=== PATIENT | female | born 1940 | race Caucasian/White ===

== ENCOUNTER → 2016-10-21 | Outpatient (CLI) | payer MEDICARE, BC ==
--- NOTE | 2016-10-21 11:49 | FL ---
MODIFIED SWALLOW / DEGLUTITION STUDY DATE OF EXAM: 10/21/2016 CLINICAL HISTORY: 76-year-old female with dysphasia, sensation of food sticking in throat. TECHNIQUE: Deglutition study is performed utilizing thin liquid barium, honey and nectar thick liqui d barium, barium thick applesauce, and barium coated cracker. COMPARISON: None. FINDINGS: The oral and pharyngeal phases show satisfactory initiation and propagation with all modalities teste d. The patient is edentulous. Normal mastication is seen with solid modalities tested. There is no evidence of penetration or aspiration with any modality tested. No significant pharyngeal residual w as appreciated. Note, there are residuals noted in the lower cervical esophagus with some mild intraesophageal reflux . 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 IMPRESSION: 1. Normal deglutition study. Please refer to speech therapist notes for further details if necessary . 2. There are some residuals noted in the lower cervical esophagus with some intermittent intraesophag eal reflux. 3. 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 Consider direct visualiza tion if the patient remains symptomatic.
== END | disposition home or self-care (01) ==
LOC: RADFLMAIN 10:53
PROVIDERS: ATTEND Family Medicine
DX: K21.9 Gastro-esophageal reflux disease without esophagitis (principal); R13.10 Dysphagia, unspecified
CPT/HCPCS: 74230

== ENCOUNTER 2017-05-06 10:37 | Day surgery (SDC) | payer MEDICARE, BC ==
[2017-05-05 08:32] VITALS: BMI 22.1
[~2017-05-06 10:37] MED LIST: LACTATED RINGERS 1,000 ML IV SCH
[2017-05-06 11:25] VITALS: RESP 16; TEMP 97.8
[2017-05-06] MEDS ORDERED: LIDOCAINE 1% 20 ML VIAL (10MG/ML) FOR IV START INTRADERMA ONE (11:34)
[2017-05-06] MEDS ORDERED: PROPOFOL 10 MG/ML 20 ML VIAL IV ONE (12:10)
[2017-05-06] MEDS ORDERED: LIDOCAINE 1% INJ 10MG/ML (20 ML MDV) ONE (12:10)
--- NOTE | 2017-05-06 12:38 | P.PCN ---
Date of Procedure: 05/06/17 Procedure(s) Performed: Brief history: Patient is a pleasant 76-year-old white female, scheduled for an elective upper endoscopy as well as colonoscopy as a part of evaluation of evaluation of Hemoccult-positive stool and anemia. She denies any abdominal pain. Procedure performed: Esophagogastroduodenoscopy with biopsy Colonoscopy and snare polypectomy Preoperative diagnosis: Anemia and Hemoccult-positive stool Anesthesia: [facility] Procedure: After informed consent was obtained from the patient was brought into the endoscopy unit and IV sedation was administered by anesthesia under continuous monitoring. Initially upper endoscopy was done. The Olympus GF 160 video endoscope was inserted inserted into the mouth and esophagus intubated without any difficulty and was gradually advanced into the stomach and duodenum and carefully examined. The bulb and second part of the duodenum appeared normal. The scope was then withdrawn into the stomach adequately insufflated with air and upon careful examination the antrum had mild gastritis and biopsies were done from this area. The body, cardia and fundus appeared normal. There was evidence of previous vertical band gastroplasty noted.The scope was then withdrawn into the esophagus. The GE junction was located at 40 cm to the incisors. It appeared regular with no erythema erosions or ulcerations. Rest of the esophagus appeared normal. Patient tolerated the procedure well. At this time the patient continued to remain sedation. Initial digital rectal examination was normal. Olympus CF 160 video colonoscope was then inserted into the rectum and gradually advanced to the cecum without any difficulty. Careful examination was performed as the scope was gradually being withdrawn. The prep was excellent. The cecum, ascending colon, transverse colon, descending colon, sigmoid colon and rectum appeared normal. in the proximal rectum there was a 7-8 mm polyp removed by snare polypectomy. Retroflexion was performed in the rectum and no lesions were noted. Patient tolerated the procedure well. Impression: 1. Upper endoscopy revealed mild antral gastritis and evidence of previous vertical band gastroplasty. 2. Colonoscopy revealed 7-8 mm proximal rectal polyp status post polypectomy. Rest of the colon appeared normal. Recommendations: Findings of this examination were discussed with the patient as well as her family. She was advised to follow with the biopsy results. She can resume Xarelto today.today.
[2017-05-06] MEDS ORDERED: METOPROLOL TARTRATE 5 MG/5 ML VIAL IVP ONE ×3 (13:42→14:05)
[2017-05-06 14:27] VITALS: PULSE 55
[2017-05-06] MEDS ORDERED: hydrALAZINE HCL 20 MG/ML 1 ML VIAL IVP ONE (14:30)
[2017-05-06 14:47] VITALS: BP 157/71
== END 2017-05-06 15:20 | disposition home or self-care (01) ==
LOC: ORWHC2ENDO 10:37
PROVIDERS: ATTEND Internal Medicine Gastroenterology
DX: D12.8 Benign neoplasm of rectum (principal); K29.70 Gastritis, unspecified, without bleeding; Z98.84 Bariatric surgery status; I10 Essential (primary) hypertension; E78.5 Hyperlipidemia, unspecified; Z95.2 Presence of prosthetic heart valve; Z79.01 Long term (current) use of anticoagulants; M79.7 Fibromyalgia; I69.398 Other sequelae of cerebral infarction; J39.2 Other diseases of pharynx; Z79.899 Other long term (current) drug therapy
CPT/HCPCS: 88305; 45385; 43239; J0360; J2001; J2704

== ENCOUNTER 2020-04-25 15:29 | Inpatient (IN) | payer MEDICARE, BC ==
[2020-04-25 16:47] LABS: Albumin 3.8 g/dL (3.5-5.0); Calcium 8.6 mg/dL (8.4-10.2); Potassium 3.6 mmol/L (3.5-5.1); Total Bilirubin 1.5 mg/dL (0.2-1.3); Total Protein 6.5 g/dL (6.3-8.2)
[2020-04-25 16:54] LABS: Anisocytosis Slight; Basophils % (A) 1 %; Eosinophils # (A) 0.1 k/uL (0-0.7); Eosinophils % (A) 1 %; HCT 31.4 % (34.0-46.0); HGB 9.9 gm/dL (11.4-16.0); Hypochromasia Slight; Lymphocytes # (A) 0.9 k/uL (1.0-4.8); Lymphocytes % (A) 15 %; MCH 26.7 pg (25.0-35.0); MCHC 31.6 g/dL (31.0-37.0); MCV 84.6 fL (80.0-100.0); Mean Platelet Volume 9.7; Monocytes # (A) 0.6 k/uL (0-1.0); Monocytes % (A) 9 %; Neutrophils # (A) 4.6 k/uL (1.3-7.7); Neutrophils % (A) 73 %; Platelet Count 166 k/uL (150-450); RBC 3.71 m/uL (3.80-5.40); RDW 19.2 % (11.5-15.5); WBC 6.3 k/uL (3.8-10.6)
[2020-04-25 17:19] LABS: INR 2.8 (<1.2); Partial Thromboplastin Time 41.9 sec (22.0-30.0); Prothrombin Time 27.5 sec (9.0-12.0)
--- NOTE | 2020-04-25 17:35 | ED ---
GI Bleed HPI - General Chief complaint: GI Bleed Stated complaint: Rectal Bleed Time Seen by Provider: 04/25/20 15:42 Source: patient, family Mode of arrival: ambulatory Limitations: no limitations - History of Present Illness Initial comments: Cynthia is a pleasantly demented 79-year-old female with a history of A. fib on Xarelto. Patient is brought to the ER today by her daughter for evaluation of bright red blood per rectum. per the daughter the patient had been staying with friends since Thursday, when the daughter picked her up last night she was made aware that her mother been having bright red blood per rectum since Thursday. The patient reports she feels somewhat lightheaded denies chest pain or shortness of breath. Patient does have a history of a bleeding and anemia in the past. She is still currently taking her blood thinner. Patient denies any abdominal pain nausea or vomiting. Daughter reports that this morning the patient urinated and she noted that there was blood dripping from her rectum into the toilet, after having a bowel movement there was additional blood and a small clot. - Related Data Home Medications Medication Instructions Recorded Confirmed Atorvastatin [Lipitor] 20 mg PO HS 05/05/17 05/05/17 Ferrous Sulfate [Iron] 325 mg PO DAILY 05/05/17 05/05/17 Loratadine [Claritin] 10 mg PO DAILY PRN 05/05/17 05/06/17 Memantine [Namenda] 10 mg PO BID 05/05/17 05/05/17 Metoprolol Tartrate 25 mg PO BID 05/05/17 05/05/17 Multivitamins, Thera [Multivitamin 1 tab PO DAILY 05/05/17 05/05/17 (formulary)] Rivaroxaban [Xarelto] 20 mg PO DAILY 05/05/17 05/05/17 Sertraline HCl [Zoloft] 100 mg PO DAILY 05/05/17 05/05/17 Allergies Allergy/AdvReac Type Severity Reaction Status Date / Time No Known Allergies Allergy Verified 05/06/17 11:11 Review of Systems ROS Statement: Those systems with pertinent positive or pertinent negative responses have been documented in the HPI. ROS Other: All systems not noted in ROS Statement are negative. 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 (hx blood clot behind rt eye from TIA), anemia, urinary leakage, gets dizzy when standing up History of Any Multi-Drug Resistant Organisms: None Reported Past Surgical History: Bariatric Surgery, Cardiac Valve Replacement, Cholecystectomy, Heart Catheterization, Hysterectomy, Orthopedic Surgery Additional Past Surgical History / Comment(s): 2 heart valve replaced, torn retina left eye, left knee surgery Past Anesthesia/Blood Transfusion Reactions: No Reported Reaction Past Psychological History: No Psychological Hx Reported Past Alcohol Use History: Occasional Past Drug Use History: None Reported - Past Family History Mother Family Medical History: Cancer General Exam - General Exam Comments Initial Comments: Physical Exam GENERAL: Elderly female, frail appearance HENT: Normocephalic, Atraumatic. EYES: PERRL, EOMI Conjunctival pallor PULMONARY: Unlabored respirations. No audible rales rhonchi or wheezing was noted. CARDIOVASCULAR: Murmur ABDOMEN: Soft and nontender with normal bowel sounds. SKIN: Pale : External and internal hemorrhoids, no active bleeding NEUROLOGIC: Alert and oriented to self MUSCULOSKELETAL: Normal extremities with adequate strength and full range of motion. No lower extremity swelling or edema. No calf tenderness. PSYCHIATRIC: Pleasant Limitations: no limitations Course Vital Signs 04/25/20 04/25/20 04/25/20 15:31 16:04 16:52 Temperature 98.6 F Pulse Rate 69 63 65 Respiratory 16 18 16 Rate Blood Pressure 120/46 106/52 97/46 O2 Sat by Pulse 98 94 L 93 L Oximetry Medical Decision Making - Medical Decision Making she was seen and evaluated history was obtained from the daughter review of medical record 79-year-old female on several to with what appears to be lower GI bleeding, no active bleeding on exam Labs were obtained and revealed anemiathe hemoglobin of 9.9, most recent hemoglobin was September 2019 was 13 this is significant drop uncertain if this is acute or chronic, and addition patient has elevated troponin related to anemia results were discussed with the patient and her daughter at bedside, daughter confirms patient is full code and would want to be admitted Patient care was discussed the patient's primary care physicianDr. Henderson who accepts admission with consult to GI - Lab Data Result diagrams: 04/25/20 16:00 04/25/20 16:07 Lab Results 0204/25/20 04/25/20 Range/Units 16:00 16:07 16:07 WBC 6.3 (3.8-10.6) k/uL RBC 3.71 L (3.80-5.40) m/uL Hgb 9.9 L (11.4-16.0) gm/dL Hct 31.4 L (34.0-46.0) % MCV 84.6 (80.0-100.0) fL MCH 26.7 (25.0-35.0) pg MCHC 31.6 (31.0-37.0) g/dL RDW 19.2 H (11.5-15.5) % Plt Count 166 (150-450) k/uL MPV 9.7 Neutrophils % 73 % Lymphocytes % 15 % Monocytes % 9 % Eosinophils % 1 % Basophils % 1 % Neutrophils # 4.6 (1.3-7.7) k/uL Lymphocytes # 0.9 L (1.0-4.8) k/uL Monocytes # 0.6 (0-1.0) k/uL Eosinophils # 0.1 (0-0.7) k/uL Basophils # 0.0 (0-0.2) k/uL Manual Slide Review Performed Polychromasia Present Hypochromasia Slight Anisocytosis Slight PT 27.5 H (9.0-12.0) sec INR 2.8 H (<1.2) APTT 41.9 H (22.0-30.0) sec Sodium 135 L (137-145) mmol/L Potassium 3.6 (3.5-5.1) mmol/L Chloride 93 L (98-107) mmol/L Carbon Dioxide 32 H (22-30) mmol/L Anion Gap 10 mmol/L BUN 22 H (7-17) mg/dL Creatinine 0.77 (0.52-1.04) mg/dL Est GFR (CKD-EPI)AfAm 84 (>60 ml/min/1.73 sqM) Est GFR (CKD-EPI)NonAf 73 (>60 ml/min/1.73 sqM) Glucose 163 H (74-99) mg/dL Plasma Lactic Acid Jose Ramon (0.7-2.0) mmol/L Calcium 8.6 (8.4-10.2) mg/dL Total Bilirubin 1.5 H (0.2-1.3) mg/dL AST 32 (14-36) U/L ALT 23 (4-34) U/L Alkaline Phosphatase 40 (38-126) U/L Troponin I (0.000-0.034) ng/mL Total Protein 6.5 (6.3-8.2) g/dL Albumin 3.8 (3.5-5.0) g/dL Stool Occult Blood (Negative) Blood Type Blood Type Confirm Blood Type Recheck Bld Type Recheck Status Antibody Screen Spec Expiration Date 04/25/20 04/25/20 04/25/20 Range/Units 16:07 16:12 16:40 WBC (3.8-10.6) k/uL RBC (3.80-5.40) m/uL Hgb (11.4-16.0) gm/dL Hct (34.0-46.0) % MCV (80.0-100.0) fL MCH (25.0-35.0) pg MCHC (31.0-37.0) g/dL RDW (11.5-15.5) % Plt Count (150-450) k/uL MPV Neutrophils % % Lymphocytes % % Monocytes % % Eosinophils % % Basophils % % Neutrophils # (1.3-7.7) k/uL Lymphocytes # (1.0-4.8) k/uL Monocytes # (0-1.0) k/uL Eosinophils # (0-0.7) k/uL Basophils # (0-0.2) k/uL Manual Slide Review Polychromasia Hypochromasia Anisocytosis PT (9.0-12.0) sec INR (<1.2) APTT (22.0-30.0) sec Sodium (137-145) mmol/L Potassium (3.5-5.1) mmol/L Chloride (98-107) mmol/L Carbon Dioxide (22-30) mmol/L Anion Gap mmol/L BUN (7-17) mg/dL Creatinine (0.52-1.04) mg/dL Est GFR (CKD-EPI)AfAm (>60 ml/min/1.73 sqM) Est GFR (CKD-EPI)NonAf (>60 ml/min/1.73 sqM) Glucose (74-99) mg/dL Plasma Lactic Acid Jose Ramon (0.7-2.0) mmol/L Calcium (8.4-10.2) mg/dL Total Bilirubin (0.2-1.3) mg/dL AST (14-36) U/L ALT (4-34) U/L Alkaline Phosphatase (38-126) U/L Troponin I 0.186 H* (0.000-0.034) ng/mL Total Protein (6.3-8.2) g/dL Albumin (3.5-5.0) g/dL Stool Occult Blood Positive H (Negative) Blood Type Blood Type Confirm B Negative Blood Type Recheck Bld Type Recheck Status Antibody Screen Spec Expiration Date 04/25/20 04/25/20 Range/Units 16:48 16:48 WBC (3.8-10.6) k/uL RBC (3.80-5.40) m/uL Hgb (11.4-16.0) gm/dL Hct (34.0-46.0) % MCV (80.0-100.0) fL MCH (25.0-35.0) pg MCHC (31.0-37.0) g/dL RDW (11.5-15.5) % Plt Count (150-450) k/uL MPV Neutrophils % % Lymphocytes % % Monocytes % % Eosinophils % % Basophils % % Neutrophils # (1.3-7.7) k/uL Lymphocytes # (1.0-4.8) k/uL Monocytes # (0-1.0) k/uL Eosinophils # (0-0.7) k/uL Basophils # (0-0.2) k/uL Manual Slide Review Polychromasia Hypochromasia Anisocytosis PT (9.0-12.0) sec INR (<1.2) APTT (22.0-30.0) sec Sodium (137-145) mmol/L Potassium (3.5-5.1) mmol/L Chloride (98-107) mmol/L Carbon Dioxide (22-30) mmol/L Anion Gap mmol/L BUN (7-17) mg/dL Creatinine (0.52-1.04) mg/dL Est GFR (CKD-EPI)AfAm (>60 ml/min/1.73 sqM) Est GFR (CKD-EPI)NonAf (>60 ml/min/1.73 sqM) Glucose (74-99) mg/dL Plasma Lactic Acid Jose Ramon 1.1 (0.7-2.0) mmol/L Calcium (8.4-10.2) mg/dL Total Bilirubin (0.2-1.3) mg/dL AST (14-36) U/L ALT (4-34) U/L Alkaline Phosphatase (38-126) U/L Troponin I (0.000-0.034) ng/mL Total Protein (6.3-8.2) g/dL Albumin (3.5-5.0) g/dL Stool Occult Blood (Negative) Blood Type B Negative Blood Type Confirm Blood Type Recheck No Previous Record Bld Type Recheck Status CABO Indicated Antibody Screen NEGATIVE Spec Expiration Date 04/28/20202299 Disposition Clinical Impression: GI bleeding, Anemia, Elevated troponin I level, Alzheimer disease Disposition: ADMITTED IP TO THIS [facility] Condition: Serious Is patient prescribed a controlled substance at d/c from ED?: No
[2020-04-25 17:37] LABS: Polychromasia Present
[2020-04-25] MEDS ORDERED: NALOXONE 0.4 MG/ML 1 ML VIAL IV PRN (17:59)
[2020-04-25] MEDS ORDERED: NITROGLYCERIN SL TABS 0.4 MG TAB SUBLINGUAL PRN (21:35)
[2020-04-25] MEDS: METOPROLOL TARTRATE 25 MG TAB PO SCH (21:53)
[2020-04-25] MEDS: ATORVASTATIN 40 MG TAB PO SCH (21:54)
[2020-04-25] MEDS: MEMANTINE 10 MG TAB PO SCH (21:54)
[2020-04-25] MEDS: SODIUM CHLORIDE 0.9% 1,000 ML IV SCH (21:54)
[2020-04-25 22:00] LABS: Anisocytosis Slight; HCT 28.3 % (34.0-46.0); HGB 8.9 gm/dL (11.4-16.0); Hypochromasia Slight; MCH 26.8 pg (25.0-35.0); MCHC 31.5 g/dL (31.0-37.0); MCV 85.2 fL (80.0-100.0); Mean Platelet Volume 9.6; Platelet Count 140 k/uL (150-450); RBC 3.32 m/uL (3.80-5.40); RDW 19.4 % (11.5-15.5); WBC 6.3 k/uL (3.8-10.6)
[2020-04-26 07:59] LABS: Anisocytosis Slight; HCT 26.9 % (34.0-46.0); HGB 8.3 gm/dL (11.4-16.0); Hypochromasia Moderate; MCH 26.5 pg (25.0-35.0); MCV 85.5 fL (80.0-100.0); Mean Platelet Volume 8.9; Platelet Count 138 k/uL (150-450); RBC 3.15 m/uL (3.80-5.40); RDW 19.4 % (11.5-15.5); WBC 5.2 k/uL (3.8-10.6)
[2020-04-26] MEDS: DULoxetine HCL 20 MG CAPSULE.DR PO SCH (09:35)
[2020-04-26] MEDS: PANTOPRAZOLE 40 MG/10 ML VIAL IVP SCH ×2 (09:35→20:45)
[2020-04-26] MEDS: DOCUSATE 100 MG CAP PO SCH (09:35)
[2020-04-26] MEDS: MEMANTINE 10 MG TAB PO SCH ×2 (09:35→20:45)
[2020-04-26] MEDS: MECLIZINE 12.5 MG TAB PO SCH ×2 (09:36→20:45)
[2020-04-26] MEDS: CYANOCOBALAMIN 500 MCG TAB PO SCH (09:36)
[2020-04-26] MEDS: MULTIVITAMINS, THERA 1 EACH TAB PO SCH (09:36)
[2020-04-26] MEDS: CHOLECALCIFEROL 25 MCG (1000 IU) TABLET PO SCH (09:36)
[2020-04-26] MEDS: FERROUS SULFATE 325 MG TAB PO SCH (09:36)
[2020-04-26] MEDS: METOPROLOL TARTRATE 25 MG TAB PO SCH ×2 (09:36→20:45)
[2020-04-26] MEDS: CALCIUM CARBONATE 500 MG CHEWABLE PO SCH (09:36)
[2020-04-26] MEDS ORDERED: IOPAMIDOL CONTRAST (ORAL USE) VIAL PO PRN (10:23)
[2020-04-26] MEDS: HYDROCORTISONE SUPPOSITORY 25 MG SUPP RECTAL SCH (11:54)
[2020-04-26] MEDS: SODIUM CHLORIDE 0.9% 1,000 ML IV SCH (11:54)
--- NOTE | 2020-04-26 13:01 | P.HPIM ---
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, patient developed to have a significant rectal bleed over the last few days she had contacted my office yesterday because of increased rectal bleeding and she was directed to go to the ER she was evaluated in the emergency department at [facility] she was found to have a hemoglobin of 9.9 which is about 4 g lower from the last hemoglobin, and because of that she was admitted to the hospital for evaluation by gastroenterology, patient underwent upper endoscopy as well as colonoscopy back in April 2017 about 3 years ago and that showed the mild antral gastritis with a prior history of the vertical band gastroplasty and the colonoscopy showed a colon polyp that was snared and the patient at that time did not have any other issues, patient was admitted as a secondary or GI consultation was obtained from Dr. Metz. Review of Systems Constitutional: Reports fatigue, Reports weakness, Reports weight loss, Denies anorexia Eyes: denies blurred vision, denies bulging eye, denies decreased vision Ears: bilateral: decreased hearing Ears, nose, mouth and throat: Reports vertigo, Denies dysphagia, Denies neck lump, Denies sore throat Cardiovascular: Reports decreased exercise tolerance, Reports dyspnea on exertion, Reports lightheadedness, Denies chest pain, Denies rapid heart beat, Denies shortness of breath, Denies syncope Respiratory: Denies congestion, Denies cough, Denies cough with sputum, Denies pain, Denies sleep apnea, Denies snoring, Denies wheezing Gastrointestinal: Reports BRBPR, Reports early satiety, Reports hematochezia, Reports loss of appetite, Reports nausea, Denies abdominal pain, Denies belching, Denies bloating, Denies change in bowel habits, Denies constipation, Denies diarrhea, Denies excessive gas, Denies hematemesis, Denies jaundice, Denies lactose intolerance, Denies melena, Denies vomiting Genitourinary: Reports nocturia, Denies dysuria Menstruation: Reports postmenopausal Musculoskeletal: Reports gait dysfunction, Denies myalgias Musculoskeletal: absent: ankle pain, ankle stiffness, ankle swelling, elbow pain, elbow stiffness, elbow swelling, foot pain, foot stiffness, foot swelling, hand pain, hand stiffness, hand swelling, hip pain, hip stiffness, hip swelling, knee pain, knee stiffness, knee swelling, shoulder pain, shoulder stiffness, shoulder swelling, wrist pain, wrist stiffness, wrist swelling Integumentary: Denies pruritus, Denies rash Neurological: Reports gait dysfunction, Reports memory loss, Reports weakness, Reports visual changes Psychiatric: Reports anxiety, Reports depression, Reports sadness/tearfulness, Denies paranoia, Denies sleep disturbances, Denies suicidal ideation Endocrine: Denies fatigue, Denies weight change Past Medical History Past Medical History: Atrial Fibrillation, Chest Pain / Angina, Heart Failure, CVA/TIA, Dementia, Fibromyalgia, GERD/Reflux, Hearing Disorder / Deafness, Hyp erlipidemia, Hypertension, Osteoarthritis (OA) Additional Past Medical History / Comment(s): CVA x3, 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 (hx blood clot behind rt eye from TIA), anemia, urinary leakage, gets dizzy when standing up History of Any Multi-Drug Resistant Organisms: None Reported Past Surgical History: Bariatric Surgery, Cardiac Valve Replacement (Aortic valve placement and mitral valve repair.), Cholecystectomy, Heart Catheterization, Hysterectomy, Orthopedic Surgery Additional Past Surgical History / Comment(s): 2 heart valve replaced, torn retina left eye, left knee surgery Past Anesthesia/Blood Transfusion Reactions: No Reported Reaction Past Psychological History: No Psychological Hx Reported Smoking Status: Never smoker Past Alcohol Use History: Occasional Past Drug Use History: None Reported - Past Family History Mother Family Medical History: Cancer Medications and Allergies Home Medications Medication Instructions Recorded Confirmed Type Ferrous Sulfate [Iron] 325 mg PO DAILY 05/05/17 04/25/20 History Memantine [Namenda] 10 mg PO BID 05/05/17 04/25/20 History Metoprolol Tartrate 25 mg PO BID 05/05/17 04/25/20 History Multivitamins, Thera [Multivitamin 1 tab PO DAILY 05/05/17 04/25/20 History (formulary)] Rivaroxaban [Xarelto] 20 mg PO DAILY 05/05/17 04/25/20 History Acetaminophen [Tylenol] 500 mg PO BID PRN 04/25/20 04/25/20 History Atorvastatin [Lipitor] 40 mg PO HS 04/25/20 04/25/20 History Bumetanide 2 mg PO BID 04/25/20 04/25/20 History Calcium Carbonate [Calcium] 1,200 mg PO DAILY 04/25/20 04/25/20 History Cholecalciferol [Vitamin D3 (25 50 mcg PO DAILY 04/25/20 04/25/20 History Mcg = 1000 Iu)] Cyanocobalamin (Vitamin B-12) 1,000 mcg PO DAILY 04/25/20 04/25/20 History [Vitamin B-12] DULoxetine HCL [Cymbalta] 20 mg PO DAILY 04/25/20 04/25/20 History Docusate [Colace] 200 mg PO DAILY 04/25/20 04/25/20 History Meclizine [Antivert] 12.5 mg PO BID 04/25/20 04/25/20 History Nitroglycerin Sl Tabs [Nitrostat] 0.4 mg SUBLINGUAL Q5M PRN 04/25/20 04/25/20 History Potassium Chloride ER [K-Dur 20] 20 meq PO DAILY 04/25/20 04/25/20 History Allergies Allergy/AdvReac Type Severity Reaction Status Date / Time No Known Allergies Allergy Verified 04/25/20 18:45 Physical Exam Vitals: Vital Signs Temp Pulse Pulse Resp BP BP Pulse Ox 04/26/20 04:00 98.2 F 57 L 16 106/46 87 L 04/26/20 02:00 57 L 18 04/26/20 00:00 98.4 F 63 18 100/40 87 L 04/25/20 20:00 98.7 F 66 17 94/53 92 L 04/25/20 18:18 63 18 110/49 92 L 04/25/20 16:52 65 16 97/46 93 L 04/25/20 16:04 63 18 106/52 94 L 04/25/20 15:31 98.6 F 69 16 120/46 98 Intake and Output 04/25/20 04/26/20 04/26/20 22:59 06:59 14:59 Other: Voiding Method Toilet Toilet # Voids 1 1 # Bowel Movements 1 Weight 46.266 kg 46.3 kg Physical examination: HEENT: Head is atraumatic, normocephalic, pupils were equal round reactive to light and recommendation, extraocular muscle movement were intact, sclera nonicteric, conjunctivae were pale, mucous membranes of the mouth are somewhat dry. Neck: Supple, no JVD, decreased carotid upstrokes bilaterally with no lymph adenopathy. Chest: Decreased breath sounds at the bases, few rhonchi, no expiratory wheezes, no chest wall tenderness, no intercostal retractions. Heart: First heart sound is depressed, second heart sounds normal, there is systolic ejection murmur 2/6 located in the left sternal border. Abdomen: Soft, nontender, nondistended, positive bowel sounds. Extremities: There is no edema, no calf tenderness, dorsalis pedis +1 bilaterally. Neurologic examination: Patient is awake alert and oriented 2, creatinine nerves III-12 appear grossly intact, muscle per were 4 out of 5 in upper and lower extremities bilaterally, deep tendon reflexes were normal. Results CBC & Chem 7: 04/26/20 07:31 04/25/20 16:07 Labs: Abnormal Lab Results - Last 24 Hours (Table) 04/25/20 04/25/20 04/25/20 Range/Units 16:00 16:07 16:07 RBC 3.71 L (3.80-5.40) m/uL Hgb 9.9 L (11.4-16.0) gm/dL Hct 31.4 L (34.0-46.0) % RDW 19.2 H (11.5-15.5) % Plt Count (150-450) k/uL Lymphocytes # 0.9 L (1.0-4.8) k/uL PT 27.5 H (9.0-12.0) sec INR 2.8 H (<1.2) APTT 41.9 H (22.0-30.0) sec Sodium 135 L (137-145) mmol/L Chloride 93 L (98-107) mmol/L Carbon Dioxide 32 H (22-30) mmol/L BUN 22 H (7-17) mg/dL Glucose 163 H (74-99) mg/dL Total Bilirubin 1.5 H (0.2-1.3) mg/dL Troponin I (0.000-0.034) ng/mL Stool Occult Blood (Negative) 04/25/20 04/25/20 04/25/20 Range/Units 16:07 16:12 21:47 RBC 3.32 L (3.80-5.40) m/uL Hgb 8.9 L (11.4-16.0) gm/dL Hct 28.3 L (34.0-46.0) % RDW 19.4 H (11.5-15.5) % Plt Count 140 L (150-450) k/uL Lymphocytes # (1.0-4.8) k/uL PT (9.0-12.0) sec INR (<1.2) APTT (22.0-30.0) sec Sodium (137-145) mmol/L Chloride (98-107) mmol/L Carbon Dioxide (22-30) mmol/L BUN (7-17) mg/dL Glucose (74-99) mg/dL Total Bilirubin (0.2-1.3) mg/dL Troponin I 0.186 H* (0.000-0.034) ng/mL Stool Occult Blood Positive H (Negative) 04/26/20 Range/Units 07:31 RBC 3.15 L (3.80-5.40) m/uL Hgb 8.3 L (11.4-16.0) gm/dL Hct 26.9 L (34.0-46.0) % RDW 19.4 H (11.5-15.5) % Plt Count 138 L (150-450) k/uL Lymphocytes # (1.0-4.8) k/uL PT (9.0-12.0) sec INR (<1.2) APTT (22.0-30.0) sec Sodium (137-145) mmol/L Chloride (98-107) mmol/L Carbon Dioxide (22-30) mmol/L BUN (7-17) mg/dL Glucose (74-99) mg/dL Total Bilirubin (0.2-1.3) mg/dL Troponin I (0.000-0.034) ng/mL Stool Occult Blood (Negative) Thrombosis Risk Factor Assmnt - DVT/VTE Prophylaxis DVT/VTE Prophylaxis: Mechanical Prophylaxis ordered - Choose All That Apply Any of the Below Risk Factors Present?: Yes Each Risk Factor Represents 3 Points: Age 75 years or older Thrombosis Risk Factor Assessment Total Risk Factor Score: 3 Thrombosis Risk Factor Assessment Level: Moderate Risk Assessment and Plan Assessment: Assessment and plan: 1. Lower gastric disobeyed likely related to hemorrhoid versus other etiology. Discontinue Xarelto, CBC every 12 hours, start the patient on Protonix 40 mg IV push every 12 hours, give the patient on clear liquid diet, GI consultation for colonoscopy and possible endoscopy. 2. Acute blood loss anemia. Her hemoglobin is still above 8.0 we'll transfuse for hemoglobin less than 7. 3. History of aortic valve disease status post aortic valve replacement and mitral valve repair. Continue patient on metoprolol 25 mg orally twice every day. 4. Hypertension and hypertensive cardiovascular disease. Continue patient on metoprolol 25 mg orally twice every day. 5. Hyperlipidemia. Continue Lipitor 40 mg orally once every day. 6. History of moderate vascular dementia. Continue Namenda 10 mg orally twice every day. 7. Depressive disorder. Continue Cymbalta 20 mg orally once every day. 8. Paroxysmal atrial fibrillation currently in sinus rhythm. Continue patient off Xarelto until GI workup is completed. 9. Iron deficiency anemia. Continue patient on iron 325 mg orally once every day. 10. Chronic vertigo. Continue meclizine 12.5 mg orally twice every day. 11. Osteoporosis. Currently on calcium and prolia. 12. DVT prophylaxis Bilateral knee-high TAISHA hose hold Xarelto. 13. GI prophylaxis. Continue patient on Protonix 40 mg IV push every 12 hours. 14. Admitted to inpatient. Estimated length of stay 2 midnights 15. Patient's full code.
--- NOTE | 2020-04-26 15:36 | CONS ---
CONSULTATION DATE OF DICTATION: 04/26/2020 REASON FOR CONSULTATION: Abdominal pain, nausea, rectal bleeding. HISTORY OF PRESENT ILLNESS: The patient is an 79-year-old pleasant white female with history of atrial fibrillation, currently on Xarelto, who came to the emergency room complaining of bright red blood per rectum for the last 2-3 days' duration. Apparently the patient had some rectal bleeding and subsequently she had some blood that was pouring out along her leg, as per her daughter, that started 2 days ago. The patient has dementia and her daughter is not at the bedside currently. She does complain of some abdominal pain, mostly in the epigastric area, and is complaining of some nausea, but no emesis. She denies any chest pain or shortness of breath. She does not recall having these symptoms in the past. As per the chart, apparently she was urinating this morning and subsequently noted significant amount of blood dripping from her rectum with clots. Her initial hemoglobin in the ER was 9.3 g/dL and subsequently dropped to 8.3 g/dL. PAST MEDICAL HISTORY: Significant for atrial fibrillation, on Xarelto, hypertension, fibromyalgia, gastroesophageal reflux disease, hyperlipidemia, CVA in the past. PAST SURGICAL HISTORY: Aortic valve replacement, cholecystectomy, cardiac catheterization, hysterectomy, left eye surgery. MEDICATIONS: Medications at home include Lipitor, iron, Claritin, Namenda, metoprolol, Xarelto, Zoloft, multivitamin. ALLERGIES: NONE. SOCIAL HISTORY: No smoking. No alcohol use. FAMILY HISTORY: Mother had some cancer. REVIEW OF SYSTEMS: CARDIOPULMONARY: She denies any chest pain or shortness of breath. GENITOURINARY: No dysuria or hematuria. MUSCULOSKELETAL: She denies any symptoms. NEUROLOGY: Mild dementia. ENT/VISION: Unremarkable. CONSTITUTIONAL: She denies any weight loss. No fever, chills, night sweats. HEMATOLOGY: Mild anemia. ENDOCRINE: Unremarkable. PHYSICAL EXAMINATION: She appears comfortable. No apparent distress. Vital signs are stable. Blood pressure 108/58, pulse rate 65, temperature 97.9. HEENT examination unremarkable. Conjunctivae pink. Sclerae anicteric. Oral cavity no lesions. NECK: No JVD or lymph node enlargement. CHEST: Clear to auscultation. HEART: Regular rate and rhythm. ABDOMEN: Soft. Bowel sounds are positive. No organomegaly. EXTREMITIES: No pedal edema. NEUROLOGIC: She is awake, alert to name but not to place or time. LABS: Labs from yesterday: WBC 6.3, hemoglobin 9.9, platelets 166. Today WBC 5.2, hemoglobin 8.3, and platelets 138. Basic metabolic panel showed a BUN of 22, creatinine 0.77, sodium 135, potassium 3.6, chloride 93, CO2 22. PT 27.8 with an INR of 2.8. Stool occult blood was positive. Coronavirus PCR is negative. IMPRESSION: 1. Rectal bleeding for the last 2 days' duration. The patient's hemoglobin dropped from 9.9 to 8.3 g/dL. She does not recall being constipated. She did have an EGD and colonoscopy in 2018 that showed small polyp, gastritis and vertical band gastroplasty. At this time the possibility of colorectal pathology needs to be considered. 2. Atrial fibrillation, on Xarelto, currently on hold. INR is 2.8. 3. History of mild dementia. 4. History of hypertension and hyperlipidemia. 5. History of aortic valve replacement. RECOMMENDATIONS: 1. Start her on a clear liquid diet. 2. Will proceed with EGD and colonoscopy tomorrow. 3. Continue to hold Xarelto. 4. Repeat PT/INR in the morning. 5. Will follow with you closely. Thank you for this consultation. MMODL / IJN: [id number] /
[2020-04-26] MEDS ORDERED: PEG 3350-NA SULF,BICARB,CL/KCL 4,000 ML BOTTLE PO ONE (16:00)
[2020-04-26] MEDS: ATORVASTATIN 40 MG TAB PO SCH (20:45)
[2020-04-27] MEDS: SODIUM CHLORIDE 0.9% 1,000 ML IV SCH ×2 (04:26→14:17)
[2020-04-27 08:24] LABS: Anisocytosis Slight; Basophils % (A) 1 %; Eosinophils # (A) 0.2 k/uL (0-0.7); Eosinophils % (A) 3 %; HCT 29.1 % (34.0-46.0); HGB 9.2 gm/dL (11.4-16.0); Hypochromasia Moderate; Lymphocytes % (A) 22 %; MCH 26.9 pg (25.0-35.0); MCHC 31.6 g/dL (31.0-37.0); MCV 85.1 fL (80.0-100.0); Mean Platelet Volume 8.9; Monocytes # (A) 0.5 k/uL (0-1.0); Monocytes % (A) 10 %; Neutrophils % (A) 63 %; Platelet Count 135 k/uL (150-450); RBC 3.41 m/uL (3.80-5.40); RDW 19.5 % (11.5-15.5); WBC 4.7 k/uL (3.8-10.6)
[2020-04-27 08:26] LABS: Albumin 2.8 g/dL (3.5-5.0); Calcium 8.5 mg/dL (8.4-10.2); Potassium 3.7 mmol/L (3.5-5.1); Total Bilirubin 1.5 mg/dL (0.2-1.3); Total Protein 5.1 g/dL (6.3-8.2)
--- NOTE | 2020-04-27 11:11 | P.PN ---
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, patient developed to have a significant rectal bleed over the last few days she had contacted my office yesterday because of increased rectal bleeding and she was directed to go to the ER she was evaluated in the emergency department at [facility] she was found to have a hemoglobin of 9.9 which is about 4 g lower from the last hemoglobin, and because of that she was admitted to the hospital for evaluation by gastroenterology, patient underwent upper endoscopy as well as colonoscopy back in April 2017 about 3 years ago and that showed the mild antral gastritis with a prior history of the vertical band gastroplasty and the colonoscopy showed a colon polyp that was snared and the patient at that time did not have any other issues, patient was admitted as a secondary or GI consultation was obtained from Dr. Metz. 04/27: Patient has been seen by Dr. Metz with recommendations for clear liquid diet, EGD and colonoscopy today, hold Xarelto and repeat INR in the morning. Patient has been afebrile, heart rate 63, blood pressure 120/62, pulse ox 95% on room air. teletypesetter monitor is sinus rhythm. Repeat blood work reveals hemoglobin of 9.2, platelet count 135. Sodium 139. Potassium 3.7, chloride 97, CO2 35, BUN 16 and creatinine 0.85. Total bilirubin 1.5 and normal liver function tests. Discharge plan is to return home. Objective - Vital Signs Vital signs: Vital Signs Temp 97.7 F 04/27/20 02:20 Pulse 64 04/27/20 02:20 Resp 17 04/27/20 02:20 BP 113/56 04/27/20 02:20 Pulse Ox 98 04/27/20 02:20 Intake & Output 04/26/20 04/27/20 04/27/20 18:59 06:59 18:59 Intake Total 700 600 Output Total 0 0 Balance 700 600 Weight 46.3 kg 48.6 kg Intake: Intake, IV Titration 600 Amount Sodium Chloride 0.9% 1, 600 000 ml @ 75 mls/hr IV . [id number] [facility] Rx#:[id number] Oral 700 Output: Urine 0 Stool 0 0 Other: Voiding Method Toilet # Voids 1 1 # Bowel Movements 0 3 - Exam Review of Systems Constitutional: Reports fatigue, Reports weakness, Reports weight loss, Denies anorexia Eyes: denies blurred vision, denies bulging eye, denies decreased vision Ears: bilateral: decreased hearing Ears, nose, mouth and throat: Reports vertigo, Denies dysphagia, Denies neck lump, Denies sore throat Cardiovascular: Reports decreased exercise tolerance, Reports dyspnea on exertion, Reports lightheadedness, Denies chest pain, Denies rapid heart beat, Denies shortness of breath, Denies syncope Respiratory: Denies congestion, Denies cough, Denies cough with sputum, Denies pain, Denies sleep apnea, Denies snoring, Denies wheezing Gastrointestinal: Reports BRBPR, Reports early satiety, Reports hematochezia, Reports loss of appetite, Reports nausea, Denies abdominal pain, Denies belching, Denies bloating, Denies change in bowel habits, Denies constipation, Denies diarrhea, Denies excessive gas, Denies hematemesis, Denies jaundice, Denies lactose intolerance, Denies melena, Denies vomiting Genitourinary: Reports nocturia, Denies dysuria Menstruation: Reports postmenopausal Musculoskeletal: Reports gait dysfunction, Denies myalgias Musculoskeletal: absent: ankle pain, ankle stiffness, ankle swelling, elbow pain, elbow stiffness, elbow swelling, foot pain, foot stiffness, foot swelling, hand pain, hand stiffness, hand swelling, hip pain, hip stiffness, hip swelling, knee pain, knee stiffness, knee swelling, shoulder pain, shoulder stiffness, shoulder swelling, wrist pain, wrist stiffness, wrist swelling Integumentary: Denies pruritus, Denies rash Neurological: Reports gait dysfunction, Reports memory loss, Reports weakness, Reports visual changes Psychiatric: Reports anxiety, Reports depression, Reports sadness/tearfulness, Denies paranoia, Denies sleep disturbances, Denies suicidal ideation Endocrine: Denies fatigue, Denies weight change Physical examination: HEENT: Head is atraumatic, normocephalic, pupils were equal round reactive to light and recommendation, extraocular muscle movement were intact, sclera nonicteric, conjunctivae were pale, mucous membranes of the mouth are somewhat dry. Neck: Supple, no JVD, decreased carotid upstrokes bilaterally with no lymph adenopathy. Chest: Decreased breath sounds at the bases, few rhonchi, no expiratory wheezes, no chest wall tenderness, no intercostal retractions. Heart: First heart sound is depressed, second heart sounds normal, there is systolic ejection murmur 2/6 located in the left sternal border. Abdomen: Soft, nontender, nondistended, positive bowel sounds. Extremities: There is no edema, no calf tenderness, dorsalis pedis +1 bilaterally. Neurologic examination: Patient is awake alert and oriented 2, creatinine nerves III-12 appear grossly intact, muscle per were 4 out of 5 in upper and lower extremities bilaterally, deep tendon reflexes were normal. - Labs CBC & Chem 7: 04/27/20 07:12 04/27/20 07:12 Labs: Abnormal Lab Results - Last 24 Hours (Table) 04/27/20 04/27/20 Range/Units 07:12 07:12 RBC 3.41 L (3.80-5.40) m/uL Hgb 9.2 L (11.4-16.0) gm/dL Hct 29.1 L (34.0-46.0) % RDW 19.5 H (11.5-15.5) % Plt Count 135 L (150-450) k/uL Chloride 97 L (98-107) mmol/L Carbon Dioxide 35 H (22-30) mmol/L Total Bilirubin 1.5 H (0.2-1.3) mg/dL Total Protein 5.1 L (6.3-8.2) g/dL Albumin 2.8 L (3.5-5.0) g/dL Assessment and Plan Plan: 1. Lower gastric disobeyed likely related to hemorrhoid versus other etiology. Discontinue Xarelto, CBC daily, continue Protonix 40 mg IV push every 12 hours, no diet as patient is scheduled for EGD and colonoscopy today. 2. Acute blood loss anemia. Her hemoglobin is still above 8.0 we'll transfuse for hemoglobin less than 7. 3. History of aortic valve disease status post aortic valve replacement and mitral valve repair. Continue patient on metoprolol 25 mg orally twice every day. 4. Hypertension and hypertensive cardiovascular disease. Continue patient on metoprolol 25 mg orally twice every day. 5. Hyperlipidemia. Continue Lipitor 40 mg orally once every day. 6. History of moderate vascular dementia. Continue Namenda 10 mg orally twice every day. 7. Depressive disorder. Continue Cymbalta 20 mg orally once every day. 8. Paroxysmal atrial fibrillation currently in sinus rhythm. Continue patient off Xarelto until GI workup is completed. 9. Iron deficiency anemia. Continue patient on iron 325 mg orally once every day. 10. Chronic vertigo. Continue meclizine 12.5 mg orally twice every day. 11. Osteoporosis. Currently on calcium and prolia. 12. DVT prophylaxis Bilateral knee-high TAISHA hose hold Xarelto. 13. GI prophylaxis. Continue patient on Protonix 40 mg IV push every 12 hours. 14. Admitted to inpatient. Estimated length of stay 2 midnights 15. Patient's full code. Discharge plan: Return home Impression and plan of care have been directed as dictated by the signing physician. Renetta Reeves nurse practitioner acting as scribe for signing physician.
[2020-04-27] MEDS ORDERED: PROPOFOL 10 MG/ML 20 ML VIAL IV ONE (13:57)
[2020-04-27] MEDS ORDERED: LIDOCAINE 1% INJ 10MG/ML (20 ML MDV) ONE (13:57)
[2020-04-27] MEDS ORDERED: IV FLUID CONTINUATION 1,000 ML IV ONE ×2 (13:58)
[2020-04-27] MEDS: CYANOCOBALAMIN 500 MCG TAB PO SCH (14:15)
[2020-04-27] MEDS: CHOLECALCIFEROL 25 MCG (1000 IU) TABLET PO SCH (14:15)
[2020-04-27] MEDS: CALCIUM CARBONATE 500 MG CHEWABLE PO SCH (14:15)
[2020-04-27] MEDS ORDERED: SODIUM CHLORIDE 0.9% 500 ML 500 ML IV ONE (14:15)
[2020-04-27] MEDS: HYDROCORTISONE SUPPOSITORY 25 MG SUPP RECTAL SCH (14:16)
[2020-04-27] MEDS: DOCUSATE 100 MG CAP PO SCH (14:16)
[2020-04-27] MEDS: MULTIVITAMINS, THERA 1 EACH TAB PO SCH (14:17)
[2020-04-27] MEDS: PANTOPRAZOLE 40 MG/10 ML VIAL IVP SCH ×2 (15:36→20:17)
[2020-04-27] MEDS: ACETAMINOPHEN TAB 500 MG TAB PO PRN (15:36)
[2020-04-27] MEDS: METOPROLOL TARTRATE 25 MG TAB PO SCH ×2 (15:36→20:17)
[2020-04-27] MEDS: DULoxetine HCL 20 MG CAPSULE.DR PO SCH (15:36)
[2020-04-27] MEDS: FERROUS SULFATE 325 MG TAB PO SCH (15:37)
[2020-04-27] MEDS: MEMANTINE 10 MG TAB PO SCH ×2 (15:37→20:16)
[2020-04-27] MEDS: MECLIZINE 12.5 MG TAB PO SCH ×2 (15:41→21:01)
--- NOTE | 2020-04-27 15:58 | P.PCN ---
Date of Procedure: 04/27/20 Description of Procedure: Brief history: Patient is a 79-year-old female presenting for esophagogastroduodenoscopy and colonoscopy for rectal bleeding. The patient had presented to the hospital with 2 days of rectal bleeding. Follow hemoglobin from 9.9 3.3. Previously she underwent EGD and colonoscopy for positive occult stool or blood in 2018 with findings of gastritis, prior vertical banded gastroplasty and polypectomy. Procedure performed: Esophagogastroduodenoscopy Colonoscopy with polypectomy Estimated blood loss: Minimal. Preoperative diagnosis: GI bleed, hematochezia, anemia of acute blood loss Anesthesia: MAC Procedure: After informed consent was obtained from the patient was brought into the endoscopy unit and IV sedation was administered by anesthesia under continuous monitoring. Initially upper endoscopy was done. The Olympus GF 190 video endoscope was inserted into the mouth and esophagus intubated without any difficulty and was gradually advanced into the stomach and duodenum and carefully examined. The bulb and second part of the duodenum appeared normal. There was evidence of prior vertical band gastroplasty, with a small nonbleeding area of ulceration at the anastomotic site. The scope was then withdrawn into the stomach adequately insufflated with air and upon careful examination the antrum and body, cardia and fundus appeared normal, except for some mild erythema suggestive of mild gastritis in antrum body. The scope was then w ithdrawn into the esophagus. The GE junction was located at 40 cm to the incisors. It appeared regular with no erythema erosions or ulcerations. Rest of the esophagus appeared normal. Patient tolerated the procedure well. At this time the patient continued to remain sedation. Initial digital rectal examination was normal. Olympus CF 190 video colonoscope was then inserted into the rectum and gradually advanced to the cecum without any difficulty. Careful examination was performed as the scope was gradually being withdrawn. The prep was fair prohibiting complete visualization of the mucosa. The cecum, ascending colon, transverse colon, descending colon, sigmoid colon and rectum appeared normal, however complete visualization prohibited by fair prep. 5 mm polyp removed with cold snare polypectomy from the cecum. No active bleeding or old blood noted initially however, there was some scope trauma in the rectum found on withdrawal. A few scattered diverticula noted in the sigmoid colon. Retroflexion was performed in the rectum and no lesions were noted, moderate internal hemorrhoids. Patient tolerated the procedure well. Impression: 1. No active bleeding or old blood noted on EGD. Superficial nonbleeding gastric ulcer. Prior band gastroplasty. Gastritis. 2. Flat cecal polyp removed with cold snare polypectomy. No active bleeding or old blood noted initially on colonoscopy, however there was a minimal amount of scope trauma in the rectum after the procedure with no active bleeding noted after lavage. Internal hemorrhoids. Mild sigmoid diverticulosis. Recommendations: Findings of this examination were discussed with the patient in the medical team. Okay for full liquid diet. Continue to hold anticoagulation therapy for the next 48-72 hours. Continue to monitor hemoglobin and hematocrit and transfuse as needed. Continue Protonix 40 mg twice daily.
[2020-04-27] MEDS: ATORVASTATIN 40 MG TAB PO SCH (20:17)
[2020-04-28] MEDS: ACETAMINOPHEN TAB 500 MG TAB PO PRN ×2 (04:05→21:02)
[2020-04-28] MEDS: SODIUM CHLORIDE 0.9% 1,000 ML IV SCH (07:00)
[2020-04-28 07:24] LABS: Anisocytosis Slight; Basophils % (A) 1 %; Eosinophils # (A) 0.1 k/uL (0-0.7); Eosinophils % (A) 2 %; HCT 30.8 % (34.0-46.0); HGB 9.6 gm/dL (11.4-16.0); Hypochromasia Moderate; Lymphocytes % (A) 19 %; MCH 26.7 pg (25.0-35.0); MCHC 31.2 g/dL (31.0-37.0); MCV 85.5 fL (80.0-100.0); Mean Platelet Volume 9.5; Monocytes # (A) 0.4 k/uL (0-1.0); Monocytes % (A) 7 %; Neutrophils # (A) 3.8 k/uL (1.3-7.7); Neutrophils % (A) 69 %; Platelet Count 157 k/uL (150-450); RDW 19.6 % (11.5-15.5); WBC 5.5 k/uL (3.8-10.6)
[2020-04-28 07:43] LABS: Albumin 2.8 g/dL (3.5-5.0); Calcium 8.3 mg/dL (8.4-10.2); Potassium 3.8 mmol/L (3.5-5.1); Total Bilirubin 1.7 mg/dL (0.2-1.3); Total Protein 5.2 g/dL (6.3-8.2)
[2020-04-28] MEDS ORDERED: LACTATED RINGERS 1,000 ML IV SCH (08:12)
[2020-04-28] MEDS: MULTIVITAMINS, THERA 1 EACH TAB PO SCH (09:25)
[2020-04-28] MEDS: CHOLECALCIFEROL 25 MCG (1000 IU) TABLET PO SCH (09:25)
[2020-04-28] MEDS: MECLIZINE 12.5 MG TAB PO SCH ×2 (09:25→21:01)
[2020-04-28] MEDS: MEMANTINE 10 MG TAB PO SCH ×2 (09:25→21:01)
[2020-04-28] MEDS: CALCIUM CARBONATE 500 MG CHEWABLE PO SCH (09:25)
[2020-04-28] MEDS: FERROUS SULFATE 325 MG TAB PO SCH (09:26)
[2020-04-28] MEDS: BUMETANIDE 1 MG TAB PO SCH ×2 (09:26→16:06)
[2020-04-28] MEDS: CYANOCOBALAMIN 500 MCG TAB PO SCH (09:26)
[2020-04-28] MEDS: DULoxetine HCL 20 MG CAPSULE.DR PO SCH (09:26)
[2020-04-28] MEDS: DOCUSATE 100 MG CAP PO SCH (09:26)
[2020-04-28] MEDS: HYDROCORTISONE SUPPOSITORY 25 MG SUPP RECTAL SCH (09:27)
[2020-04-28] MEDS: METOPROLOL TARTRATE 25 MG TAB PO SCH ×2 (09:27→21:01)
[2020-04-28] MEDS: PANTOPRAZOLE 40 MG/10 ML VIAL IVP SCH ×2 (09:27→21:02)
--- NOTE | 2020-04-28 09:57 | P.PN ---
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, patient developed to have a significant rectal bleed over the last few days she had contacted my office yesterday because of increased rectal bleeding and she was directed to go to the ER she was evaluated in the emergency department at [facility] she was found to have a hemoglobin of 9.9 which is about 4 g lower from the last hemoglobin, and because of that she was admitted to the hospital for evaluation by gastroenterology, patient underwent upper endoscopy as well as colonoscopy back in April 2017 about 3 years ago and that showed the mild antral gastritis with a prior history of the vertical band gastroplasty and the colonoscopy showed a colon polyp that was snared and the patient at that time did not have any other issues, patient was admitted as a secondary or GI consultation was obtained from Dr. Metz. 04/27: Patient has been seen by Dr. Metz with recommendations for clear liquid diet, EGD and colonoscopy today, hold Xarelto and repeat INR in the morning. Patient has been afebrile, heart rate 63, blood pressure 120/62, pulse ox 95% on room air. equipment monitor phototypesetting is sinus rhythm. Repeat blood work reveals hemoglobin of 9.2, platelet count 135. Sodium 139. Potassium 3.7, chloride 97, CO2 35, BUN 16 and creatinine 0.85. Total bilirubin 1.5 and normal liver function tests. Discharge plan is to return home. 04/28: Patient underwent EGD and colonoscopy yesterday that showed the ulcers in the stomach that is not bleeding, diverticulosis and hemorrhoids as well there is no active bleeding at this point in time guarded hemoglobin is up to 9.6, we'll discuss with GI going for Capsule Endoscopy for Evaluation of the Small Bowel , patient had gained 8 pounds since she was admitted to the hospital discontinue her IV fluid, start the patient on Bumex 2 mg orally once every day as well as potassium chloride 20 mg orally once every day give the patient the hospital for another 24 hours and we will arrange for Capsule Endoscopy Either on Thursday or As an Outpatient. Objective - Vital Signs Vital signs: Vital Signs Temp 98.1 F 04/28/20 04:00 Pulse 59 L 04/28/20 04:00 Resp 18 04/28/20 04:00 BP 116/54 04/28/20 04:00 Pulse Ox 98 04/28/20 07:42 Intake & Output 04/27/20 04/28/20 04/28/20 18:59 06:59 18:59 Intake Total 780 Output Total 0 Balance 780 0 Weight 49.9 kg Intake: IV 300 Oral 480 Output: Stool 0 Other: Voiding Method Toilet # Voids 1 1 # Bowel Movements 0 - Exam - Exam Review of Systems Constitutional: Reports fatigue, Reports weakness, Reports weight loss, Denies anorexia Eyes: denies blurred vision, denies bulging eye, denies decreased vision Ears: bilateral: decreased hearing Ears, nose, mouth and throat: Reports vertigo, Denies dysphagia, Denies neck lump, Denies sore throat Cardiovascular: Reports decreased exercise tolerance, Reports dyspnea on exertion, Reports lightheadedness, Denies chest pain, Denies rapid heart beat, Denies shortness of breath, Denies syncope Respiratory: Denies congestion, Denies cough, Denies cough with sputum, Denies pain, Denies sleep apnea, Denies snoring, Denies wheezing Gastrointestinal: Reports BRBPR, Reports early satiety, Reports hematochezia, Reports loss of appetite, Reports nausea, Denies abdominal pain, Denies belching, Denies bloating, Denies change in bowel habits, Denies constipation, Denies diarrhea, Denies excessive gas, Denies hematemesis, Denies jaundice, Denies lactose intolerance, Denies melena, Denies vomiting Genitourinary: Reports nocturia, Denies dysuria Menstruation: Reports postmenopausal Musculoskeletal: Reports gait dysfunction, Denies myalgias Musculoskeletal: absent: ankle pain, ankle stiffness, ankle swelling, elbow pain, elbow stiffness, elbow swelling, foot pain, foot stiffness, foot swelling, hand pain, hand stiffness, hand swelling, hip pain, hip stiffness, hip swelling, knee pain, knee stiffness, knee swelling, shoulder pain, shoulder stiffness, shoulder swelling, wrist pain, wrist stiffness, wrist swelling Integumentary: Denies pruritus, Denies rash Neurological: Reports gait dysfunction, Reports memory loss, Reports weakness, Reports visual changes Psychiatric: Reports anxiety, Reports depression, Reports sadness/tearfulness, Denies paranoia, Denies sleep disturbances, Denies suicidal ideation Endocrine: Denies fatigue, Denies weight change Physical examination: HEENT: Head is atraumatic, normocephalic, pupils were equal round reactive to light and recommendation, extraocular muscle movement were intact, sclera nonicteric, conjunctivae were pale, mucous membranes of the mouth are somewhat dry. Neck: Supple, no JVD, decreased carotid upstrokes bilaterally with no lymph adenopathy. Chest: Decreased breath sounds at the bases, few rhonchi, no expiratory wheezes, no chest wall tenderness, no intercostal retractions. Heart: First heart sound is depressed, second heart sounds normal, there is systolic ejection murmur 2/6 located in the left sternal border. Abdomen: Soft, nontender, nondistended, positive bowel sounds. Extremities: There is no edema, no calf tenderness, dorsalis pedis +1 bilaterally. Neurologic examination: Patient is awake alert and oriented 2, creatinine nerves III-12 appear grossly intact, muscle per were 4 out of 5 in upper and lower extremities bilaterally, deep tendon reflexes were normal. - Labs CBC & Chem 7: 04/28/20 06:54 04/28/20 06:54 Labs: Abnormal Lab Results - Last 24 Hours (Table) 04/28/20 04/28/20 Range/Units 06:54 06:54 RBC 3.60 L (3.80-5.40) m/uL Hgb 9.6 L (11.4-16.0) gm/dL Hct 30.8 L (34.0-46.0) % RDW 19.6 H (11.5-15.5) % Sodium 133 L (137-145) mmol/L Chloride 96 L (98-107) mmol/L Carbon Dioxide 32 H (22-30) mmol/L Calcium 8.3 L (8.4-10.2) mg/dL Total Bilirubin 1.7 H (0.2-1.3) mg/dL Total Protein 5.2 L (6.3-8.2) g/dL Albumin 2.8 L (3.5-5.0) g/dL Assessment and Plan Assessment: Assessment and Plan Plan: 1. Lower gastrointestinal bleed likely related to hemorrhoid versus other etiology. We will continue to hold Xarelto for another 24 hour, she understand that the risk of stroke is high off Xarelto however the risk of bleeding is high as well therefore we get a hold for another 24 hours and hopefully restart her back on Xarelto Thursday. 2. Acute blood loss anemia. Her hemoglobin is still above 8.0 we'll transfuse for hemoglobin less than 7. Hemoglobin today is 9.6 stable repeat more morning. 3. History of aortic valve disease status post aortic valve replacement and mitral valve repair. Continue patient on metoprolol 25 mg orally twice every day. 4. Hypertension and hypertensive cardiovascular disease. Continue patient on metoprolol 25 mg orally twice every day. 5. Hyperlipidemia. Continue Lipitor 40 mg orally once every day. 6. History of moderate vascular dementia. Continue Namenda 10 mg orally twice every day. 7. Depressive disorder. Continue Cymbalta 20 mg orally once every day. 8. Paroxysmal atrial fibrillation currently in sinus rhythm. Continue patient off Xarelto until GI workup is completed. 9. Iron deficiency anemia. Continue patient on iron 325 mg orally once every day. 10. Chronic vertigo. Continue meclizine 12.5 mg orally twice every day. 11. Osteoporosis. Currently on calcium and prolia. 12. DVT prophylaxis Bilateral knee-high TAISHA hose hold Xarelto. 13. GI prophylaxis. Continue patient on Protonix 40 mg IV push every 12 hours. 14. Chronic systolic heart failure. Continue patient on Bumex 2 mg orally once every day as well as potassium supplement 20 mg once every day continue with metoprolol 25 mg orally twice every day, portable chest x-ray, monitor the patient weight on a daily basis per 14. Physical therapy evaluation. 15. Likely home in the next 24-48 hours.
[2020-04-28] MEDS: POTASSIUM CHLORIDE ER 20 MEQ TAB.ER PO SCH (10:48)
--- NOTE | 2020-04-28 11:18 | XR ---
EXAMINATION TYPE: XR chest 1V portable DATE OF EXAM: 04/28/2020 HISTORY: Shortness of breath. COMPARISON: None. TECHNIQUE: Single view of the chest is submitted. FINDINGS: Demonstrated are scattered senescent parenchymal change. Patchy basilar infiltrates and small left-sided pleural effusion. Correlate for pneumonia. The heart is stable. Hilar and mediastinal structures are within normal limits. Degenerative changes are seen of the dorsal spine. IMPRESSION: 1. Patchy basilar infiltrates and small left-sided pleural effusion. Correlate for pneumonia.
--- NOTE | 2020-04-28 17:50 | P.PN ---
Subjective Progress Note Date: 04/28/20 Principal diagnosis: Hematochezia, anemia of acute blood loss The patient is seen lying in bed with her daughter bedside. The small amount of blood on her brief today otherwise no further GI bleeding. Hemoglobin stable at 9.6. Tolerating her diet. Objective - Vital Signs Vital signs: Vital Signs Temp 98.1 F 04/28/20 04:00 Pulse 59 L 04/28/20 04:00 Resp 18 04/28/20 04:00 BP 116/54 04/28/20 04:00 Pulse Ox 98 04/28/20 07:42 Intake & Output 04/27/20 04/28/20 04/28/20 18:59 06:59 18:59 Intake Total 780 Output Total 0 Balance 780 0 Weight 49.9 kg Intake: IV 300 Oral 480 Output: Stool 0 Other: Voiding Method Toilet # Voids 1 1 # Bowel Movements 0 - Exam On physical examination, patient appears comfortable in no apparent distress. HEAD: Normocephalic, atraumatic. EYES: No scleral icterus. No conjunctival injection. MOUTH: No lesions, tongue midline. NECK: Trachea midline, no gross abnormalities. ABDOMEN: Soft, thin and nontender to palpation. Bowel sounds are positive. No organomegaly. No guarding or rigidity. EXTREMITIES: No pedal edema. SKIN: No rashes, no jaundice. NEUROLOGIC: Alert and oriented to person. - Labs CBC & Chem 7: 04/28/20 06:54 04/28/20 06:54 Labs: Abnormal Lab Results - Last 24 Hours (Table) 04/28/20 04/28/20 Range/Units 06:54 06:54 RBC 3.60 L (3.80-5.40) m/uL Hgb 9.6 L (11.4-16.0) gm/dL Hct 30.8 L (34.0-46.0) % RDW 19.6 H (11.5-15.5) % Sodium 133 L (137-145) mmol/L Chloride 96 L (98-107) mmol/L Carbon Dioxide 32 H (22-30) mmol/L Calcium 8.3 L (8.4-10.2) mg/dL Total Bilirubin 1.7 H (0.2-1.3) mg/dL Total Protein 5.2 L (6.3-8.2) g/dL Albumin 2.8 L (3.5-5.0) g/dL Assessment and Plan (1) GI bleeding Narrative/Plan: 79-year-old female with multiple medical comorbidities on anticoagulation therapy who presented for blood per rectum. Multiple episodes of painless bright red blood per rectum. Patient taken for EGD with findings of prior band gastroplasty and mild gastritis with no old blood or active bleeding and colonoscopy significant for polypectomy, hemorrhoids and diverticulosis. Unclear if symptoms are secondary to diverticular bleed, hemorrhoidal bleed exacerbated by anticoagulation therapy, or other etiology. Current Visit: Yes Status: Acute Code(s): K92.2 - GASTROINTESTINAL HEMORRHAGE, UNSPECIFIED SNOMED Code(s): 44356672 (2) Anemia associated with acute blood loss Current Visit: Yes Status: Acute Code(s): D62 - ACUTE POSTHEMORRHAGIC ANEMIA SNOMED Code(s): 293141662 Plan: Supportive care Okay for diet as tolerated Continue to monitor stool output Continue monitor hemoglobin and hematocrit and transfuse as needed Continue to hold anticoagulation therapy, if hemoglobin stable with no further bleeding can consider resuming tomorrow Unfortunately, patients previous bariatric surgery may be prohibitive of video capsule endoscopy as she would be at increased risk for retained capsule No plans for further endoscopy at this time Thank you for allowing us to participate in the care of the patient
[2020-04-28] MEDS: ATORVASTATIN 40 MG TAB PO SCH (21:01)
[2020-04-29] MEDS: DOCUSATE 100 MG CAP PO SCH (09:24)
[2020-04-29] MEDS: PANTOPRAZOLE 40 MG/10 ML VIAL IVP SCH (09:24)
[2020-04-29] MEDS: POTASSIUM CHLORIDE ER 20 MEQ TAB.ER PO SCH (09:24)
[2020-04-29] MEDS: DULoxetine HCL 20 MG CAPSULE.DR PO SCH (09:24)
[2020-04-29] MEDS: MEMANTINE 10 MG TAB PO SCH ×2 (09:25→21:32)
[2020-04-29] MEDS: METOPROLOL TARTRATE 25 MG TAB PO SCH ×2 (09:25→21:32)
[2020-04-29] MEDS: CHOLECALCIFEROL 25 MCG (1000 IU) TABLET PO SCH (09:25)
[2020-04-29] MEDS: MECLIZINE 12.5 MG TAB PO SCH ×2 (09:25→22:24)
[2020-04-29] MEDS: CALCIUM CARBONATE 500 MG CHEWABLE PO SCH (09:26)
[2020-04-29] MEDS: CYANOCOBALAMIN 500 MCG TAB PO SCH (09:26)
[2020-04-29] MEDS: FERROUS SULFATE 325 MG TAB PO SCH (09:26)
[2020-04-29] MEDS: MULTIVITAMINS, THERA 1 EACH TAB PO SCH (09:26)
[2020-04-29] MEDS: HYDROCORTISONE SUPPOSITORY 25 MG SUPP RECTAL SCH (09:26)
[2020-04-29] MEDS: BUMETANIDE 1 MG TAB PO SCH (09:26)
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
[2020-04-29 11:03] LABS: Anisocytosis Slight; Basophils % (A) 0 %; Eosinophils # (A) 0.2 k/uL (0-0.7); Eosinophils % (A) 3 %; HCT 33.9 % (34.0-46.0); HGB 10.6 gm/dL (11.4-16.0); Hypochromasia Moderate; Lymphocytes # (A) 1.2 k/uL (1.0-4.8); Lymphocytes % (A) 19 %; MCH 26.8 pg (25.0-35.0); MCHC 31.2 g/dL (31.0-37.0); MCV 85.9 fL (80.0-100.0); Mean Platelet Volume 8.8; Monocytes # (A) 0.5 k/uL (0-1.0); Monocytes % (A) 8 %; Neutrophils # (A) 4.3 k/uL (1.3-7.7); Neutrophils % (A) 67 %; Platelet Count 158 k/uL (150-450); RBC 3.94 m/uL (3.80-5.40); RDW 19.4 % (11.5-15.5); WBC 6.3 k/uL (3.8-10.6)
[2020-04-29 11:11] LABS: Albumin 2.9 g/dL (3.5-5.0); Calcium 8.2 mg/dL (8.4-10.2); Potassium 3.4 mmol/L (3.5-5.1); Total Bilirubin 1.5 mg/dL (0.2-1.3); Total Protein 5.3 g/dL (6.3-8.2)
[2020-04-29] MEDS ORDERED: POTASSIUM CHLORIDE ER 20 MEQ TAB.ER PO STA (11:22)
[2020-04-29] MEDS: ALBUTEROL NEBULIZED 2.5 MG/3 ML INHALATION SCH ×3 (11:49→20:36)
[2020-04-29] MEDS: PIPERACILLIN-TAZOBACTAM 3.375 GM in SODIUM CHLORIDE 0.9% 100 ML IVPB SCH ×2 (12:35→21:32)
[2020-04-29] MEDS: PANTOPRAZOLE 40 MG TABLET PO SCH (17:40)
[2020-04-29] MEDS: RIVAROXABAN 15 MG TAB PO SCH (17:40)
--- NOTE | 2020-04-29 21:02 | P.PN ---
Subjective Progress Note Date: 04/29/20 Principal diagnosis: Hematochezia, anemia of acute blood loss The patient is seen lying in bed with her daughter bedside. No further bleeding reported. Plan is for resumption of anticoagulation therapy. Hemoglobin stable at 10.6 today. Objective - Vital Signs Vital signs: Vital Signs Temp 97.8 F 04/29/20 04:00 Pulse 58 L 04/29/20 04:00 Resp 18 04/29/20 04:33 BP 103/55 04/29/20 04:00 Pulse Ox 95 04/29/20 04:33 Intake & Output 04/28/20 04/29/20 04/29/20 18:59 06:59 18:59 Output Total 1200 1000 600 Balance -1200 -1000 -600 Weight 48.5 kg Output: Urine 1200 1000 600 Other: # Voids 0 # Bowel Movements 0 - Exam On physical examination, patient appears comfortable in no apparent distress. HEAD: Normocephalic, atraumatic. EYES: No scleral icterus. No conjunctival injection. MOUTH: No lesions, tongue midline. NECK: Trachea midline, no gross abnormalities. ABDOMEN: Soft, thin and nontender to palpation. Bowel sounds are positive. No organomegaly. No guarding or rigidity. EXTREMITIES: No pedal edema. SKIN: No rashes, no jaundice. NEUROLOGIC: Alert and oriented to person. - Labs CBC & Chem 7: 04/29/20 10:39 04/29/20 10:39 Labs: Abnormal Lab Results - Last 24 Hours (Table) 04/29/20 04/29/20 Range/Units 10:39 10:39 Hgb 10.6 L (11.4-16.0) gm/dL Hct 33.9 L (34.0-46.0) % RDW 19.4 H (11.5-15.5) % Sodium 132 L (137-145) mmol/L Potassium 3.4 L (3.5-5.1) mmol/L Chloride 93 L (98-107) mmol/L Carbon Dioxide 35 H (22-30) mmol/L Glucose 108 H (74-99) mg/dL Calcium 8.2 L (8.4-10.2) mg/dL Total Bilirubin 1.5 H (0.2-1.3) mg/dL Total Protein 5.3 L (6.3-8.2) g/dL Albumin 2.9 L (3.5-5.0) g/dL Assessment and Plan (1) GI bleeding Narrative/Plan: 79-year-old female with multiple medical comorbidities on anticoagulation therapy who presented for blood per rectum. Multiple episodes of painless brittany ght red blood per rectum. Patient taken for EGD with findings of prior band gastroplasty and mild gastritis with no old blood or active bleeding and colonoscopy significant for polypectomy, hemorrhoids and diverticulosis. Unclear if symptoms are secondary to diverticular bleed, hemorrhoidal bleed exacerbated by anticoagulation therapy, or other etiology. Hemoglobin is stable at 10.6 today with no further evidence of bleeding. Current Visit: Yes Status: Acute Code(s): K92.2 - GASTROINTESTINAL HEMORRHAGE, UNSPECIFIED SNOMED Code(s): 22288077 (2) Anemia associated with acute blood loss Current Visit: Yes Status: Acute Code(s): D62 - ACUTE POSTHEMORRHAGIC ANEMIA SNOMED Code(s): 143555230 Plan: Supportive care Okay for diet as tolerated Continue to monitor stool output Continue monitor hemoglobin and hematocrit and transfuse as needed Okay to resume anticoagulation therapy Unfortunately, patients previous bariatric surgery may be prohibitive of video capsule endoscopy as she would be at increased risk for retained capsule No plans for further endoscopy at this time If hemoglobin remains stable tomorrow with no further bleeding okay for discharge from GI standpoint Thank you for allowing us to participate in the care of the patient, the GI service will stand by, please call us back with any questions or concerns
[2020-04-29] MEDS: ATORVASTATIN 40 MG TAB PO SCH (21:32)
[2020-04-30] MEDS: PIPERACILLIN-TAZOBACTAM 3.375 GM in SODIUM CHLORIDE 0.9% 100 ML IVPB SCH ×3 (03:56→20:50)
[2020-04-30] MEDS: PANTOPRAZOLE 40 MG TABLET PO SCH ×2 (06:27→17:14)
--- NOTE | 2020-04-30 07:38 | XR ---
EXAMINATION TYPE: XR chest 2V DATE OF EXAM: 04/30/2020 COMPARISON: 04/28/2020 INDICATION: Follow-up pneumonia TECHNIQUE: Frontal and lateral views of the chest are obtained. FINDINGS: The heart size is enlarged. The pulmonary vasculature is normal. There is ar nodular density in the right lower lobe measuring 1.4 cm. Left lower lobe infiltrate and small left pleural effusion are present. Correlate for pneumonia.. IMPRESSION: 1. Left lower lobe infiltrate and pleural effusion. Correlate for pneumonia. Follow-up is recommended . 2. Nodular density right infrahilar region appears larger. Continued monitoring is recommended
[2020-04-30] MEDS: ALBUTEROL NEBULIZED 2.5 MG/3 ML INHALATION SCH ×4 (08:29→22:12)
[2020-04-30] MEDS: METOPROLOL TARTRATE 25 MG TAB PO SCH ×2 (08:50→21:19)
[2020-04-30] MEDS: POTASSIUM CHLORIDE ER 20 MEQ TAB.ER PO SCH (08:50)
[2020-04-30] MEDS: CHOLECALCIFEROL 25 MCG (1000 IU) TABLET PO SCH (08:50)
[2020-04-30] MEDS: MULTIVITAMINS, THERA 1 EACH TAB PO SCH (08:50)
[2020-04-30] MEDS: DOCUSATE 100 MG CAP PO SCH (08:50)
[2020-04-30] MEDS: CYANOCOBALAMIN 500 MCG TAB PO SCH (08:51)
[2020-04-30] MEDS: FERROUS SULFATE 325 MG TAB PO SCH (08:51)
[2020-04-30] MEDS: CALCIUM CARBONATE 500 MG CHEWABLE PO SCH (08:51)
[2020-04-30] MEDS: HYDROCORTISONE SUPPOSITORY 25 MG SUPP RECTAL SCH (08:51)
[2020-04-30] MEDS: BUMETANIDE 1 MG TAB PO SCH (08:51)
[2020-04-30] MEDS: MEMANTINE 10 MG TAB PO SCH ×2 (08:51→20:50)
[2020-04-30] MEDS: MECLIZINE 12.5 MG TAB PO SCH ×2 (08:52→20:50)
[2020-04-30] MEDS: DULoxetine HCL 20 MG CAPSULE.DR PO SCH (13:08)
--- NOTE | 2020-04-30 16:14 | P.CNPUL ---
History of Present Illness Consult date: 04/30/20 Requesting physician: Deirdre Henderson Chief complaint: Abnormal chest x-ray. History of present illness: 79-year-old pleasantly demented female, with a history of atrial fibrillation on Xarelto. The patient is brought to the emergency room by the daughter. Apparently the patient lives with her daughter and the daughter basically takes care of the patient. The daughter states to me as we entered the room that the patient is very demented. Incidentally, I get all the history from the daughter. She came in with bright red blood per rectum. She apparently had a procedure while she was here. I was consulted because the chest x-ray shows a nodular lesion in the right infrahilar region which is apparently larger than before. The patient is essentially a lifelong nonsmoker. She apparently is not having any lung issues according to her and her daughter. In addition, there apparently are no recent chest x-rays to review, and/or CAT scans in the recent months. I told the patient and the daughter that we would order a CAT scan of the chest with contrast. This will give us better definition of the lesion allo w us to make a decision moving forward. She apparently has a history of angina pectoris, CVA, fibromyalgia, acid reflux disease, hyperlipidemia, and hypertension. In addition, she has blurry vision in her right eye, stress urinary incontinence, anemia, and previous cardiac surgery with valve repla cement. The daughter confirms the fact that the patient is asymptomatic from the pulmonary standpoint and has no prior history of pulmonary disease. Review of Systems REVIEW OF SYSTEMS: CONSTITUTIONAL: [Negative.] NEUROLOGIC: [ Negative.] HEENT: [ Negative.] CARDIAC: [Negative.] PULMONARY: [Negative.] GI: Bright red bleeding per rectum. : [Negative.] RHEUMATOLOGIC: [ Negative.] IMMUNOLOGIC: [ Negative.] ENDOCRINE: [Negative. ] DERMATOLOGIC: [Negative.] 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 (hx blood clot behind rt eye from TIA), anemia, urinary leakage, gets dizzy when standing up History of Any Multi-Drug Resistant Organisms: None Reported Past Surgical History: Bariatric Surgery, Cardiac Valve Replacement (Aortic valve placement and mitral valve repair.), Cholecystectomy, Heart Catheterization, Hysterectomy, Orthopedic Surgery Additional Past Surgical History / Comment(s): 2 heart valve replaced, torn retina left eye, left knee surgery Past Anesthesia/Blood Transfusion Reactions: No Reported Reaction Past Psychological History: No Psychological Hx Reported Smoking Status: Never smoker Past Alcohol Use History: Occasional Past Drug Use History: None Reported - Past Family History Mother Family Medical History: Cancer Medications and Allergies Home Medications Medication Instructions Recorded Confirmed Type Ferrous Sulfate [Iron] 325 mg PO DAILY 05/05/17 04/25/20 History Memantine [Namenda] 10 mg PO BID 05/05/17 04/25/20 History Metoprolol Tartrate 25 mg PO BID 05/05/17 04/25/20 History Multivitamins, Thera [Multivitamin 1 tab PO DAILY 05/05/17 04/25/20 History (formulary)] Rivaroxaban [Xarelto] 20 mg PO DAILY 05/05/17 04/25/20 History Acetaminophen [Tylenol] 500 mg PO BID PRN 04/25/20 04/25/20 History Atorvastatin [Lipitor] 40 mg PO HS 04/25/20 04/25/20 History Bumetanide 2 mg PO BID 04/25/20 04/25/20 History Calcium Carbonate [Calcium] 1,200 mg PO DAILY 04/25/20 04/25/20 History Cholecalciferol [Vitamin D3 (25 50 mcg PO DAILY 04/25/20 04/25/20 History Mcg = 1000 Iu)] Cyanocobalamin (Vitamin B-12) 1,000 mcg PO DAILY 04/25/20 04/25/20 History [Vitamin B-12] DULoxetine HCL [Cymbalta] 20 mg PO DAILY 04/25/20 04/25/20 History Docusate [Colace] 200 mg PO DAILY 04/25/20 04/25/20 History Meclizine [Antivert] 12.5 mg PO BID 04/25/20 04/25/20 History Nitroglycerin Sl Tabs [Nitrostat] 0.4 mg SUBLINGUAL Q5M PRN 04/25/20 04/25/20 History Potassium Chloride ER [K-Dur 20] 20 meq PO DAILY 04/25/20 04/25/20 History Allergies Allergy/AdvReac Type Severity Reaction Status Date / Time No Known Allergies Allergy Verified 04/25/20 18:45 Physical Exam Osteopathic Statement: *. No significant issues noted on an osteopathic structural exam other than those noted in the History and Physical/Consult. Vitals: Vital Signs Temp Pulse Pulse Resp BP Pulse Ox 04/30/20 12:00 63 115/56 97 04/30/20 08:43 68 12 04/30/20 08:29 63 12 97 04/30/20 08:00 97.7 F 62 104/53 98 04/30/20 04:00 97.6 F 58 L 18 102/69 99 04/30/20 00:00 97.9 F 69 20 110/50 97 04/29/20 20:00 98.1 F 68 18 111/64 99 04/29/20 16:47 70 04/29/20 16:40 70 97 Intake and Output 04/30/20 04/30/20 04/30/20 06:59 14:59 22:59 Intake Total 590 Output Total 800 Balance -800 590 Intake: Intake, IV Titration 40 Amount IV Fluid Continuation 1, 40 000 ml @ 0 mls/hr IV .[employer] ONE Rx#:[id number] Oral 550 Output: Urine 800 Other: # Voids 1 Weight 47.9 kg 47.9 kg No acute distress, oriented 3. 2 L saturation is 97%. HEENT examination is grossly unremarkable. Mucous membranes are moist. No oral lesions. Neck supple. Full range of motion. No adenopathy thyromegaly or neck vein distention. Cardiovascular examination reveals regular rhythm rate. S1-S2 normal. No S3 or S4. No discernible murmur noted. Heart rate is 63 bpm. Lungs reveal clear breath sounds. Her sounds are equal bilaterally. No adventitious lung sounds including wheezes rhonchi or crackles. Abdomen soft bowel sounds are heard. No masses or tenderness. Extremities are intact. No cyanosis clubbing or edema. Skin is without rash or lesion. Neurologic examination is brief but nonfocal. She is quite demented. Results - Laboratory Findings CBC and BMP: 04/29/20 10:39 04/29/20 10:39 PT/INR, D-dimer PT 27.5 sec (9.0-12.0) H 04/25/20 16:07 INR 2.8 (<1.2) H 04/25/20 16:07 Abnormal lab findings: Abnormal Labs 04/25/20 04/25/20 04/25/20 16:00 16:07 16:07 RBC 3.71 L Hgb 9.9 L Hct 31.4 L RDW 19.2 H Plt Count Lymphocytes # 0.9 L PT 27.5 H INR 2.8 H APTT 41.9 H Sodium 135 L Potassium Chloride 93 L Carbon Dioxide 32 H BUN 22 H Glucose 163 H Calcium Total Bilirubin 1.5 H Troponin I Total Protein Albumin Stool Occult Blood 04/25/20 04/25/20 04/25/20 16:07 16:12 21:47 RBC 3.32 L Hgb 8.9 L Hct 28.3 L RDW 19.4 H Plt Count 140 L Lymphocytes # PT INR APTT Sodium Potassium Chloride Carbon Dioxide BUN Glucose Calcium Total Bilirubin Troponin I 0.186 H* Total Protein Albumin Stool Occult Blood Positive H 04/26/20 04/27/20 04/27/20 07:31 07:12 07:12 RBC 3.15 L 3.41 L Hgb 8.3 L 9.2 L Hct 26.9 L 29.1 L RDW 19.4 H 19.5 H Plt Count 138 L 135 L Lymphocytes # PT INR APTT Sodium Potassium Chloride 97 L Carbon Dioxide 35 H BUN Glucose Calcium Total Bilirubin 1.5 H Troponin I Total Protein 5.1 L Albumin 2.8 L Stool Occult Blood 04/28/20 04/28/20 04/29/20 06:54 06:54 10:39 RBC 3.60 L Hgb 9.6 L 10.6 L Hct 30.8 L 33.9 L RDW 19.6 H 19.4 H Plt Count Lymphocytes # PT INR APTT Sodium 133 L Potassium Chloride 96 L Carbon Dioxide 32 H BUN Glucose Calcium 8.3 L Total Bilirubin 1.7 H Troponin I Total Protein 5.2 L Albumin 2.8 L Stool Occult Blood 04/29/20 10:39 RBC Hgb Hct RDW Plt Count Lymphocytes # PT INR APTT Sodium 132 L Potassium 3.4 L Chloride 93 L Carbon Dioxide 35 H BUN Glucose 108 H Calcium 8.2 L Total Bilirubin 1.5 H Troponin I Total Protein 5.3 L Albumin 2.9 L Stool Occult Blood - Diagnostic Findings Chest x-ray: image reviewed Assessment and Plan Assessment: Solitary pulmonary nodule, right infrahilar region. History of lower GI bleed, with essentially a negative EGD and colonoscopy. History of angina pectoris. History of CVA. History of fibromyalgia. Gastroesophageal reflux disease. Hyperlipidemia. History of hypertension. History of chronic anemia. Stress urinary incontinence. Prior history of cardiac surgery with valve replacement. Plan: Plan dated 04/30/2020. Plan on this patient is to go ahead and order a computed tomography scan of the chest with contrast. Additional recommendations suggestions are forthcoming. Pending the results, we may do nothing at all, do serial computed tomography scanning, order a PET scan, or attempt a biopsy. Biopsy would be difficult because of lesion is so small. Additional recommendations and suggestions are forthcoming. Also, given the patient's dementia, the daughter would like to be making the decisions for the patient or at least be significantly involved in the decision-making process. Time with Patient: Greater than 30
[2020-04-30] MEDS: RIVAROXABAN 15 MG TAB PO SCH (17:14)
--- NOTE | 2020-04-30 19:21 | P.PN ---
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 she was found to have a hemoglobin of 9.9 which is about 4 g lower from the last hemoglobin, and because of that she was admitted to the hospital for evaluation by gastroenterology, patient underwent upper endoscopy as well as colonoscopy back in April 2017 about 3 years ago and that showed the mild antral gastritis with a prior history of the vertical band gastroplasty and the colonoscopy showed a colon polyp that was snared and the patient at that time did not have any other issues, patient was admitted as a secondary or GI consultation was obtained from Dr. Metz. 04/27: Patient has been seen by Dr. Metz with recommendations for clear liquid diet, EGD and colonoscopy today, hold Xarelto and repeat INR in the morning. Patient has been afebrile, heart rate 63, blood pressure 120/62, pulse ox 95% on room air. buckler and lacer is sinus rhythm. Repeat blood work reveals hemoglobin of 9.2, platelet count 135. Sodium 139. Potassium 3.7, chloride 97, CO2 35, BUN 16 and creatinine 0.85. Total bilirubin 1.5 and normal liver function tests. Discharge plan is to return home. 04/28: Patient underwent EGD and colonoscopy yesterday that showed the ulcers in the stomach that is not bleeding, diverticulosis and hemorrhoids as well there is no active bleeding at this point in time guarded hemoglobin is up to 9.6, we'll discuss with GI going for Capsule Endoscopy for Evaluation of the Small Bowel , patient had gained 8 pounds since she was admitted to the hospital discontinue her IV fluid, start the patient on Bumex 2 mg orally once every day as well as potassium chloride 20 mg orally once every day give the patient the hospital for another 24 hours and we will arrange for Capsule Endoscopy Either on Thursday or As an Outpatient. 04/29: Patient is laying down in bed in no apparent distress she is not feeling herself today she appears generally weak, she has not been moving around much, her hemoglobin today still pending at the time of dictation, we will start her on Xarelto 20 mg orally once every day [place] and that physical therapy will evaluate the patient tomorrow morning for possible home PT, patient will need to have a hospital bed as well as bedside commode to go for home care, her chest x-ray did show bibasilar patchy infiltrate we will start her on Zosyn 3.375 g IV piggyback every 8 hours, incentive Stromberger, start the patient on Ventolin HFA 2 puffs inhalation every 4 hours as needed, incentive spirometer to the bedside, increase activity. 04/30: Patient is laying down in bed in no apparent distress, she denies any chest pain, she appears to be a bit short of breath today, she denies any coughing or any hemoptysis, she has no abdominal pain, she did have a bowel movement, she appears to be extremely weak, awaiting physical therapy evaluation for possible subacute rehabilitation, her chest x-ray reviewed showed right infrahilar nodule she will be seen in consultation by pulmonary medicine computed tomography scan of the chest with contrast will be obtained, we'll continue the patient on Zosyn 3.375 g IV piggyback every 8 hours, continue with albuterol 2.5 mg nebulization 4 times every day, continue oxygen support, incentive spirometer to be used every hour for the next 24 hours. Objective - Vital Signs Vital signs: Vital Signs Temp 97.7 F 04/30/20 08:00 Pulse 68 04/30/20 08:43 Resp 12 04/30/20 08:43 BP 104/53 04/30/20 08:00 Pulse Ox 97 04/30/20 08:29 Intake & Output 04/29/20 04/30/20 04/30/20 18:59 06:59 18:59 Intake Total 240 250 Output Total 1400 1999 Balance -1159 250 Weight 47.9 kg Intake: Oral 240 250 Output: Urine 1400 1999 Other: # Voids 1 - Exam - Exam Review of Systems Constitutional: Reports fatigue, Reports weakness, Reports weight loss, Denies anorexia Eyes: denies blurred vision, denies bulging eye, denies decreased vision Ears: bilateral: decreased hearing Ears, nose, mouth and throat: Reports vertigo, Denies dysphagia, Denies neck lump, Denies sore throat Cardiovascular: Reports decreased exercise tolerance, Reports dyspnea on exertion, Reports lightheadedness, Denies chest pain, Denies rapid heart beat, Denies shortness of breath, Denies syncope Respiratory: Denies congestion, Denies cough, Denies cough with sputum, Denies pain, Denies sleep apnea, Denies snoring, Denies wheezing Gastrointestinal: Reports BRBPR, Reports early satiety, Reports hematochezia, Reports loss of appetite, Reports nausea, Denies abdominal pain, Denies belching, Denies bloating, Denies change in bowel habits, Denies constipation, Denies diarrhea, Denies excessive gas, Denies hematemesis, Denies jaundice, Denies lactose intolerance, Denies melena, Denies vomiting Genitourinary: Reports nocturia, Denies dysuria Menstruation: Reports postmenopausal Musculoskeletal: Reports gait dysfunction, Denies myalgias Musculoskeletal: absent: ankle pain, ankle stiffness, ankle swelling, elbow pain, elbow stiffness, elbow swelling, foot pain, foot stiffness, foot swelling, hand pain, hand stiffness, hand swelling, hip pain, hip stiffness, hip swelling, knee pain, knee stiffness, knee swelling, shoulder pain, shoulder stiffness, shoulder swelling, wrist pain, wrist stiffness, wrist swelling Integumentary: Denies pruritus, Denies rash Neurological: Reports gait dysfunction, Reports memory loss, Reports weakness, Reports visual changes Psychiatric: Reports anxiety, Reports depression, Reports sadness/tearfulness, Denies paranoia, Denies sleep disturbances, Denies suicidal ideation Endocrine: Denies fatigue, Denies weight change Physical examination: HEENT: Head is atraumatic, normocephalic, pupils were equal round reactive to l ight and recommendation, extraocular muscle movement were intact, sclera nonicteric, conjunctivae were pale, mucous membranes of the mouth are somewhat dry. Neck: Supple, no JVD, decreased carotid upstrokes bilaterally with no lymph adenopathy. Chest: Decreased breath sounds at the bases, few rhonchi, no expiratory wheezes, no chest wall tenderness, no intercostal retractions. Heart: First heart sound is depressed, second heart sounds normal, there is systolic ejection murmur 2/6 located in the left sternal border. Abdomen: Soft, nontender, nondistended, positive bowel sounds. Extremities: There is no edema, no calf tenderness, dorsalis pedis +1 bilaterally. Neurologic examination: Patient is awake alert and oriented 2, creatinine nerves III-12 appear grossly intact, muscle per were 4 out of 5 in upper and lower extremities bilaterally, deep tendon reflexes were normal. - Labs CBC & Chem 7: 04/29/20 10:39 04/29/20 10:39 Assessment and Plan Assessment: Assessment and Plan Plan: 1. Lower gastrointestinal bleed likely hemorrhoidal versus diverticulosis. She did not have any bleed over the last 24 hours, subsequently we will start her on Xarelto 10 mg orally once every day, monitor the patient's CBC over the next 24 hours. 2. Acute blood loss anemia. Her hemoglobin is still above 8.0 we'll transfuse for hemoglobin less than 7. Hemoglobin today 10.6. 3. History of aortic valve disease status post aortic valve replacement and mitral valve repair. Continue patient on metoprolol 25 mg orally twice every day. 4. Hypertension and hypertensive cardiovascular disease. Continue patient on metoprolol 25 mg orally twice every day. 5. Hyperlipidemia. Continue Lipitor 40 mg orally once every day. 6. History of moderate vascular dementia. Continue Namenda 10 mg orally twice every day. 7. Depressive disorder. Continue Cymbalta 20 mg orally once every day. 8. Paroxysmal atrial fibrillation currently in sinus rhythm. We will restart the patient on Xarelto 20 mg orally once every day.. 9. Iron deficiency anemia. Continue patient on iron 325 mg orally once every day. 10. Chronic vertigo. Continue meclizine 12.5 mg orally twice every day. 11. Osteoporosis. Currently on calcium and prolia. 12. Bibasilar patchy infiltrate rule out gram-negative pneumonia. Start the patient on Zosyn 3.375 g IV piggyback every 8 hours, incentive Stromberger, oxygen 2 L nasal cannula, Ventolin HFA 2 puffs inhalation every 4 hours, i ncrease activity. 13. DVT prophylaxis Bilateral knee-high TAISHA hose we will restart her Xarelto 20 mg orally once every day. 14. GI prophylaxis. Continue patient on Protonix 40 mg orally twice every day. 15. Chronic systolic heart failure. Continue patient on Bumex 2 mg orally once every day as well as potassium supplement 20 mg once every day continue with metoprolol 25 mg orally twice every day, portable chest x-ray, monitor the patient weight on a daily basis. 16. Physical therapy evaluation for possible home PT per 17. Right infrahilar pulmonary nodule. Pulmonary consultation, computed tomography scan of the chest with contrast. 18. Prognosis is guarded.
[2020-04-30] MEDS: ACETAMINOPHEN TAB 500 MG TAB PO PRN (20:50)
[2020-04-30] MEDS: ATORVASTATIN 40 MG TAB PO SCH (20:50)
[2020-05-01] MEDS: PIPERACILLIN-TAZOBACTAM 3.375 GM in SODIUM CHLORIDE 0.9% 100 ML IVPB SCH ×3 (06:01→21:25)
[2020-05-01] MEDS: PANTOPRAZOLE 40 MG TABLET PO SCH ×2 (06:04→18:22)
[2020-05-01] MEDS ORDERED: RX INFO: IV CONTRAST WAS GIVEN 1 EACH MISC MISCELLANE PRN (06:25)
[2020-05-01] MEDS: ALBUTEROL NEBULIZED 2.5 MG/3 ML INHALATION SCH ×4 (08:16→19:44)
[2020-05-01 08:23] LABS: Anisocytosis Slight; Basophils % (A) 0 %; Eosinophils # (A) 0.2 k/uL (0-0.7); Eosinophils % (A) 4 %; HCT 32.8 % (34.0-46.0); HGB 10.2 gm/dL (11.4-16.0); Hypochromasia Marked; Lymphocytes # (A) 1.2 k/uL (1.0-4.8); Lymphocytes % (A) 20 %; MCH 26.7 pg (25.0-35.0); MCHC 30.9 g/dL (31.0-37.0); MCV 86.4 fL (80.0-100.0); Mean Platelet Volume 8.8; Monocytes # (A) 0.3 k/uL (0-1.0); Monocytes % (A) 5 %; Neutrophils % (A) 69 %; Platelet Count 145 k/uL (150-450); RDW 19.1 % (11.5-15.5); WBC 5.8 k/uL (3.8-10.6)
[2020-05-01] MEDS: DOCUSATE 100 MG CAP PO SCH (08:37)
[2020-05-01] MEDS: CALCIUM CARBONATE 500 MG CHEWABLE PO SCH (08:37)
[2020-05-01] MEDS: CHOLECALCIFEROL 25 MCG (1000 IU) TABLET PO SCH (08:37)
[2020-05-01] MEDS: METOPROLOL TARTRATE 25 MG TAB PO SCH ×2 (08:37→21:25)
[2020-05-01] MEDS: MULTIVITAMINS, THERA 1 EACH TAB PO SCH (08:37)
[2020-05-01] MEDS: MECLIZINE 12.5 MG TAB PO SCH ×2 (08:38→21:25)
[2020-05-01] MEDS: BUMETANIDE 1 MG TAB PO SCH (08:38)
[2020-05-01] MEDS: DULoxetine HCL 20 MG CAPSULE.DR PO SCH (08:38)
[2020-05-01] MEDS: MEMANTINE 10 MG TAB PO SCH ×2 (08:38→21:25)
[2020-05-01] MEDS: FERROUS SULFATE 325 MG TAB PO SCH (08:38)
[2020-05-01] MEDS: POTASSIUM CHLORIDE ER 20 MEQ TAB.ER PO SCH (08:38)
[2020-05-01] MEDS: HYDROCORTISONE SUPPOSITORY 25 MG SUPP RECTAL SCH (08:38)
[2020-05-01] MEDS: CYANOCOBALAMIN 500 MCG TAB PO SCH (08:38)
[2020-05-01 08:42] LABS: Calcium 8.5 mg/dL (8.4-10.2); Potassium 3.9 mmol/L (3.5-5.1); Total Bilirubin 1.4 mg/dL (0.2-1.3); Total Protein 5.4 g/dL (6.3-8.2)
--- NOTE | 2020-05-01 12:56 | CT ---
EXAMINATION TYPE: CT chest w con DATE OF EXAM: 05/01/2020 COMPARISON: HISTORY: mass CT DLP: 209 mGycm Automated exposure control for dose reduction was used. CONTRAST: CT scan of the chest is performed with IV Contrast, patient injected with 80 mL of Isovue 300. FINDINGS: LUNGS: The lungs are remarkable for bilateral pleural effusions and probable dependent atelectasis, d ifficult to exclude pneumonia. Calcified nodule corresponds to the chest x-ray abnormality, there are calcified right hilar nodes present. MEDIASTINUM: There are no greater than 1 cm hilar or mediastinal lymph nodes. No pericardial effusi on is seen. Heart is enlarged, right and left atrial enlargement suspected, there are coronary arter y calcifications. Patient is post median sternotomy. Borderline enlargement of the pulmonary artery. AORTA: Suspect aortic valve replacement change. OTHER: Dilated intra and extrahepatic biliary ducts are incompletely evaluated. Splenic calcificatio ns consistent with old granulomatous disease, there are dense mesenteric calcifications. Some high de nse material present in the distal esophagus and stomach is indeterminate. There is reflux of contras t material into the inferior vena cava and hepatic veins. There is some metallic densities at the lev el the stomach, correlate for history of surgery. IMPRESSION: Old granulomatous disease. Bilateral pleural effusions with cardiomegaly, postop change. Probable associated atelectasis, correlate to exclude pneumonia, there may be underlying right heart failure, pulmonary artery hypertension. Additional findings above.
--- NOTE | 2020-05-01 14:30 | P.PN ---
Subjective Progress Note Date: 05/01/20 Principal diagnosis: Solitary pulmonary nodule, right infrahilar region 79-year-old pleasantly demented female, with a history of atrial fibrillation on Xarelto. The patient is brought to the emergency room by the daughter. Apparently the patient lives with her daughter and the daughter basically takes care of the patient. The daughter states to me as we entered the room that the patient is very demented. Incidentally, I get all the history from the daughter. She came in with bright red blood per rectum. She apparently had a procedure while she was here. I was consulted because the chest x-ray shows a nodular lesion in the right infrahilar region which is apparently larger than before. The patient is essentially a lifelong nonsmoker. She apparently is not having any lung issues according to her and her daughter. In addition, there apparently are no recent chest x-rays to review, and/or CAT scans in the recent months. I told the patient and the daughter that we would order a CAT scan of the chest with contrast. This will give us better definition of the lesion allow us to make a decision moving forward. She apparently has a history of angina pectoris, CVA, fibromyalgia, acid reflux disease, hyperlipidemia, and hypertension. In addition, she has blurry vision in her right eye, stress urinary incontinence, anemia, and previous cardiac surgery with valve replacement. The daughter confirms the fact that the patient is asymptomatic from the pulmonary standpoint and has no prior history of pulmonary disease. On 11-29 patient seen in follow-up on selective care unit, doing well, resting comfortably in bed, breathing comfortably, no chest pain, no dyspnea, no hemoptysis, patient is on 2 L of oxygen pulse ox is 96%, no fever or chills, bl ood pressure has been stable. CT of the chest with contrast was completed showing bilateral pleural effusions, probable dependent atelectasis, calcified nodule responding to the chest x-ray abnormality, possibly related to old granulomatous disease Objective - Vital Signs Vital signs: Vital Signs Temp 97.4 F L 05/01/20 08:00 Pulse 60 05/01/20 12:20 Resp 16 05/01/20 12:20 BP 119/57 05/01/20 12:00 Pulse Ox 96 05/01/20 12:00 Intake & Output 04/30/20 05/01/20 05/01/20 18:59 06:59 18:59 Intake Total 690 0 Output Total 0 1500 Balance 690 0 -1500 Weight 47.9 kg Intake: Intake, IV Titration 40 Amount IV Fluid Continuation 1, 40 000 ml @ 0 mls/hr IV .[facility] ONE Rx#:[id number] Oral 650 0 Output: Urine 1500 Stool 0 Other: # Voids 1 - Exam GENERAL EXAM: Alert, very pleasant, 79-year-old resting comfortably in bed, 2 L of oxygen pulse ox of 96% comfortable in no apparent distress. HEAD: Normocephalic/atraumatic. EYES: Normal reaction of pupils, equal size. Conjunctiva pink, sclera white. NOSE: Clear with pink turbinates. THROAT: No erythema or exudates. NECK: No masses, no JVD, no thyroid enlargement, no adenopathy. CHEST: No chest wall deformity. Symmetrical expansion. LUNGS: Equal air entry with no crackles, wheeze, rhonchi or dullness. CVS: Regular rate and rhythm, normal S1 and S2, no gallops, no murmurs, no rubs ABDOMEN: Soft, nontender. No hepatosplenomegaly, normal bowel sounds, no guarding or rigidity. EXTREMITIES: No clubbing, no edema, no cyanosis, 2+ pulses and upper and lower extremities. MUSCULOSKELETAL: Muscle strength and tone normal. SPINE: No scoliosis or deformity SKIN: No rashes CENTRAL NERVOUS SYSTEM: Alert and oriented -3. No focal deficits, tone is normal in all 4 extremities. PSYCHIATRIC: Alert and oriented -3. Appropriate affect. Intact judgment and insight. - Labs CBC & Chem 7: 05/01/20 07:17 05/01/20 07:17 Labs: Abnormal Lab Results - Last 24 Hours (Table) 05/01/20 05/01/20 Range/Units 07:17 07:17 Hgb 10.2 L (11.4-16.0) gm/dL Hct 32.8 L (34.0-46.0) % MCHC 30.9 L (31.0-37.0) g/dL RDW 19.1 H (11.5-15.5) % Plt Count 145 L (150-450) k/uL Chloride 96 L (98-107) mmol/L Carbon Dioxide 36 H (22-30) mmol/L Total Bilirubin 1.4 H (0.2-1.3) mg/dL Total Protein 5.4 L (6.3-8.2) g/dL Albumin 3.0 L (3.5-5.0) g/dL Assessment and Plan Plan: Assessment: Solitary pulmonary nodule, right infrahilar region. History of lower GI bleed, with essentially a negative EGD and colonoscopy. History of angina pectoris. History of CVA. History of fibromyalgia. Gastroesophageal reflux disease. Hyperlipidemia. History of hypertension. History of chronic anemia. Stress urinary incontinence. Prior history of cardiac surgery with valve replacement. Plan: CT chest has been reviewed showing a calcified pulmonary nodule, possibility of old granulomatous disease, likely benign. Recommend serial follow-up CT chest in 3 months time. Follow-up with Dr. Cheng 5-6 weeks I performed a history & physical examination of the patient and discussed their management with my nurse practitioner, Sejal Herring. I reviewed the nurse practitioner's note and agree with the documented findings and plan of care. Lung sounds are positive for diminished breath sounds. The findings and the impression was discussed with the patient. I attest to the documentation by the nurse practitioner. Time with Patient: Less than 30
[2020-05-01] MEDS: ACETAMINOPHEN TAB 500 MG TAB PO PRN (16:40)
[2020-05-01] MEDS: RIVAROXABAN 15 MG TAB PO SCH (18:22)
--- NOTE | 2020-05-01 18:47 | P.PN ---
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, patient developed to have a significant rectal bleed over the last few days she had contacted my office yesterday because of increased rectal bleeding and she was directed to go to the ER she was evaluated in the emergency department at [facility] she was found to have a hemoglobin of 9.9 which is about 4 g lower from the last hemoglobin, and because of that she was admitted to the hospital for evaluation by gastroenterology, patient underwent upper endoscopy as well as colonoscopy back in April 2017 about 3 years ago and that showed the mild antral gastritis with a prior history of the vertical band gastroplasty and the colonoscopy showed a colon polyp that was snared and the patient at that time did not have any other issues, patient was admitted as a secondary or GI consultation was obtained from Dr. Metz. 04/27: Patient has been seen by Dr. Metz with recommendations for clear liquid diet, EGD and colonoscopy today, hold Xarelto and repeat INR in the morning. Patient has been afebrile, heart rate 63, blood pressure 120/62, pulse ox 95% on room air. hall monitor is sinus rhythm. Repeat blood work reveals hemoglobin of 9.2, platelet count 135. Sodium 139. Potassium 3.7, chloride 97, CO2 35, BUN 16 and creatinine 0.85. Total bilirubin 1.5 and normal liver function tests. Discharge plan is to return home. 04/28: Patient underwent EGD and colonoscopy yesterday that showed the ulcers in the stomach that is not bleeding, diverticulosis and hemorrhoids as well there is no active bleeding at this point in time guarded hemoglobin is up to 9.6, we'll discuss with GI going for Capsule Endoscopy for Evaluation of the Small Bowel , patient had gained 8 pounds since she was admitted to the hospital discontinue her IV fluid, start the patient on Bumex 2 mg orally once every day as well as potassium chloride 20 mg orally once every day give the patient the hospital for another 24 hours and we will arrange for Capsule Endoscopy Either on Thursday or As an Outpatient. 04/29: Patient is laying down in bed in no apparent distress she is not feeling herself today she appears generally weak, she has not been moving around much, her hemoglobin today still pending at the time of dictation, we will start her on Xarelto 20 mg orally once every day [place] and that physical therapy will evaluate the patient tomorrow morning for possible home PT, patient will need to have a hospital bed as well as bedside commode to go for home care, her chest x-ray did show bibasilar patchy infiltrate we will start her on Zosyn 3.375 g IV piggyback every 8 hours, incentive Stromberger, start the patient on Ventolin HFA 2 puffs inhalation every 4 hours as needed, incentive spirometer to the bedside, increase activity. 04/30: Patient is laying down in bed in no apparent distress, she denies any chest pain, she appears to be a bit short of breath today, she denies any coughing or any hemoptysis, she has no abdominal pain, she did have a bowel movement, she appears to be extremely weak, awaiting physical therapy evaluation for possible subacute rehabilitation, her chest x-ray reviewed showed right infrahilar nodule she will be seen in consultation by pulmonary medicine computed tomography scan of the chest with contrast will be obtained, we'll continue the patient on Zosyn 3.375 g IV piggyback every 8 hours, continue with albuterol 2.5 mg nebulization 4 times every day, continue oxygen support, incentive spirometer to be used every hour for the next 24 hours. 05/01: patient is lying down in bed in distress, underwent CT scan of the chest with contrast that showed calcified granulomas with bilateral atelectasis continues on Zosyn 3.375 gr IVPB Q 8 hours, no acute distress, no abdominal pain, nausea, vomiting or diarrhea, she seems to be tolerating her treatment well, no further GI bleed despite restarting her back on Xarelto 20 mg po daily, no rectal bleed, was started on Anusol Suppository by GI, physical therapy herrera byrnes. Objective - Vital Signs Vital signs: Vital Signs Temp 97.7 F 04/30/20 08:00 Pulse 66 05/01/20 00:00 Resp 18 05/01/20 00:00 BP 97/56 05/01/20 00:00 Pulse Ox 96 05/01/20 00:00 Intake & Output 04/30/20 04/30/20 05/01/20 06:59 18:59 06:59 Intake Total 690 Output Total 2000 0 Balance -1999 690 0 Weight 47.9 kg 47.9 kg Intake: Intake, IV Titration 40 Amount IV Fluid Continuation 1, 40 000 ml @ 0 mls/hr IV .[facility] ONE Rx#:[id number] Oral 650 Output: Urine 1999 Stool 0 Other: # Voids 1 1 - Exam - Exam Review of Systems Constitutional: Reports fatigue, Reports weakness, Reports weight loss, Denies anorexia Eyes: denies blurred vision, denies bulging eye, denies decreased vision Ears: bilateral: decreased hearing Ears, nose, mouth and throat: Reports vertigo, Denies dysphagia, Denies neck lump, Denies sore throat Cardiovascular: Reports decreased exercise tolerance, Reports dyspnea on exertion, Reports lightheadedness, Denies chest pain, Denies rapid heart beat, Denies shortness of breath, Denies syncope Respiratory: Denies congestion, Denies cough, Denies cough with sputum, Denies pain, Denies sleep apnea, Denies snoring, Denies wheezing Gastrointestinal: Reports BRBPR, Reports early satiety, Reports hematochezia, Reports loss of appetite, Reports nausea, Denies abdominal pain, Denies belching, Denies bloating, Denies change in bowel habits, Denies constipation, Denies diarrhea, Denies excessive gas, Denies hematemesis, Denies jaundice, D enies lactose intolerance, Denies melena, Denies vomiting Genitourinary: Reports nocturia, Denies dysuria Menstruation: Reports postmenopausal Musculoskeletal: Reports gait dysfunction, Denies myalgias Musculoskeletal: absent: ankle pain, ankle stiffness, ankle swelling, elbow pain, elbow stiffness, elbow swelling, foot pain, foot stiffness, foot swelling, hand pain, hand stiffness, hand swelling, hip pain, hip stiffness, hip swelling, knee pain, knee stiffness, knee swelling, shoulder pain, shoulder stiffness, shoulder swelling, wrist pain, wrist stiffness, wrist swelling Integumentary: Denies pruritus, Denies rash Neurological: Reports gait dysfunction, Reports memory loss, Reports weakness, Reports visual changes Psychiatric: Reports anxiety, Reports depression, Reports sadness/tearfulness, Denies paranoia, Denies sleep disturbances, Denies suicidal ideation Endocrine: Denies fatigue, Denies weight change Physical examination: HEENT: Head is atraumatic, normocephalic, pupils were equal round reactive to light and recommendation, extraocular muscle movement were intact, sclera no nicteric, conjunctivae were pale, mucous membranes of the mouth are somewhat dry. Neck: Supple, no JVD, decreased carotid upstrokes bilaterally with no lymph adenopathy. Chest: Decreased breath sounds at the bases, few rhonchi, no expiratory wheezes, no chest wall tenderness, no intercostal retractions. Heart: First heart sound is depressed, second heart sounds normal, there is systolic ejection murmur 2/6 located in the left sternal border. Abdomen: Soft, nontender, nondistended, positive bowel sounds. Extremities: There is no edema, no calf tenderness, dorsalis pedis +1 bilaterally. Neurologic examination: Patient is awake alert and oriented 2, creatinine nerves III-12 appear grossly intact, muscle per were 4 out of 5 in upper and lower extremities bilaterally, deep tendon reflexes were normal. - Labs CBC & Chem 7: 05/01/20 07:17 05/01/20 07:17 Assessment and Plan Assessment: Assessment and Plan Plan: 1. Lower gastrointestinal bleed likely hemorrhoidal versus diverticulosis. She did not have any bleed over the last 48 hours, was restarted on Xarelto 20 mg orally once every day, monitor the patient's CBC over the next 24 hours. 2. Acute blood loss anemia. Her hemoglobin is still above 8.0 we'll transfuse for hemoglobin less than 7. Hemoglobin today is 3. History of aortic valve disease status post aortic valve replacement and mitral valve repair. Continue patient on metoprolol 25 mg orally twice every day. 4. Hypertension and hypertensive cardiovascular disease. Continue patient on metoprolol 25 mg orally twice every day. 5. Hyperlipidemia. Continue Lipitor 40 mg orally once every day. 6. History of moderate vascular dementia. Continue Namenda 10 mg orally twice every day. 7. Depressive disorder. Continue Cymbalta 20 mg orally once every day. 8. Paroxysmal atrial fibrillation currently in sinus rhythm. We will continue with Xarelto 20 mg orally bid and Metoprolol 25 m orally bid. 9. Iron deficiency anemia. Continue patient on iron 325 mg orally once every day. 10. Chronic vertigo. Continue meclizine 12.5 mg orally twice every day. 11. Osteoporosis. Currently on calcium and prolia, she will be getting her Prolia injection when she is out of the hospital in my office. 12. Left lower lobe pneumonia likely gram negative pneumonia continue with Zosyn 3.375 g IV piggyback every 8 hours, incentive spirometer, oxygen 2 L nasal cannula, Ventolin HFA 2 puffs inhalation every 4 hours, increase activity. 13. DVT prophylaxis Bilateral knee-high TAISHA hose we will restart her Xarelto 20 mg orally once every day. 14. GI prophylaxis. Continue patient on Protonix 40 mg orally twice every day. 15. Chronic systolic heart failure. Continue patient on Bumex 2 mg orally once every day as well as potassium supplement 20 meq once every day continue with metoprolol 25 mg orally twice every day, daily weight. 16. Physical therapy evaluation for possible home PT . 17. Right infrahilar pulmonary nodule. CT of the chest with contrast showed calcified granulomas with bilateral atelectasis Vs pneumonia. 18. Home VS sub acute rehab in AM.
[2020-05-01] MEDS: ATORVASTATIN 40 MG TAB PO SCH (21:25)
[2020-05-02] MEDS: PIPERACILLIN-TAZOBACTAM 3.375 GM in SODIUM CHLORIDE 0.9% 100 ML IVPB SCH (03:16)
[2020-05-02] MEDS: PANTOPRAZOLE 40 MG TABLET PO SCH (06:38)
[2020-05-02 08:06] VITALS: PULSE 59; RESP 14; TEMP 97
[2020-05-02] MEDS: DULoxetine HCL 20 MG CAPSULE.DR PO SCH (08:07)
[2020-05-02] MEDS: HYDROCORTISONE SUPPOSITORY 25 MG SUPP RECTAL SCH (08:07)
[2020-05-02] MEDS: MECLIZINE 12.5 MG TAB PO SCH (08:07)
[2020-05-02] MEDS: FERROUS SULFATE 325 MG TAB PO SCH (08:08)
[2020-05-02] MEDS: DOCUSATE 100 MG CAP PO SCH (08:08)
[2020-05-02] MEDS: MEMANTINE 10 MG TAB PO SCH (08:08)
[2020-05-02] MEDS: BUMETANIDE 1 MG TAB PO SCH (08:08)
[2020-05-02] MEDS: CALCIUM CARBONATE 500 MG CHEWABLE PO SCH (08:08)
[2020-05-02] MEDS: CYANOCOBALAMIN 500 MCG TAB PO SCH (08:08)
[2020-05-02] MEDS: METOPROLOL TARTRATE 25 MG TAB PO SCH (08:09)
[2020-05-02] MEDS: POTASSIUM CHLORIDE ER 20 MEQ TAB.ER PO SCH (08:09)
[2020-05-02] MEDS: CHOLECALCIFEROL 25 MCG (1000 IU) TABLET PO SCH (08:09)
[2020-05-02] MEDS: MULTIVITAMINS, THERA 1 EACH TAB PO SCH (08:09)
[2020-05-02] MEDS ORDERED: SODIUM CHLORIDE 0.65% NASAL SPRAY 44 ML BTL NASAL PRN (08:38)
[2020-05-02] MEDS ORDERED: AMOXIC-POT CLAV 500-125 MG 1 EACH TAB PO SCH (09:00)
[2020-05-02] MEDS: ALBUTEROL NEBULIZED 2.5 MG/3 ML INHALATION SCH ×2 (09:13→11:27)
--- NOTE | 2020-05-02 11:37 | P.PN ---
Subjective Progress Note Date: 05/02/20 Principal diagnosis: Solitary pulmonary nodule, right infrahilar region 79-year-old pleasantly demented female, with a history of atrial fibrillation on Xarelto. The patient is brought to the emergency room by the daughter. Apparently the patient lives with her daughter and the daughter basically takes care of the patient. The daughter states to me as we entered the room that the patient is very demented. Incidentally, I get all the history from the daughter. She came in with bright red blood per rectum. She apparently had a procedure while she was here. I was consulted because the chest x-ray shows a nodular lesion in the right infrahilar region which is apparently larger than before. The patient is essentially a lifelong nonsmoker. She apparently is not having any lung issues according to her and her daughter. In addition, there apparently are no recent chest x-rays to review, and/or CAT scans in the recent months. I told the patient and the daughter that we would order a CAT scan of the chest with contrast. This will give us better definition of the lesion allow us to make a decision moving forward. She apparently has a history of angina pectoris, CVA, fibromyalgia, acid reflux disease, hyperlipidemia, and hypertension. In addition, she has blurry vision in her right eye, stress urinary incontinence, anemia, and previous cardiac surgery with valve replacement. The daughter confirms the fact that the patient is asymptomatic from the pulmonary standpoint and has no prior history of pulmonary disease. On 05-01 patient seen in follow-up on selective care unit, doing well, resting comfortably in bed, breathing comfortably, no chest pain, no dyspnea, no hemoptysis, patient is on 2 L of oxygen pulse ox is 96%, no fever or chills, bl ood pressure has been stable. CT of the chest with contrast was completed showing bilateral pleural effusions, probable dependent atelectasis, calcified nodule responding to the chest x-ray abnormality, possibly related to old granulomatous disease On 05/02/2020 patient seen in follow-up on selective care unit, she is resting comfortably in bed, she is on 2 L of oxygen pulse ox of 97%, she's been afebrile, she is breathing comfortably, she has a poor historian, but able to Verbalize her needs, no cough, no dyspnea. No chest pain. Today's labs have been reviewed, white blood cell count is 5.8, hemoglobin is 10.2, electrolytes are relatively unremarkable with the exception of CO2 which is at 36, and chloride concentration 96, she's had no acute events overnight. Her CT chest has been reviewed showing calcified nodule in the right lung which will need outpatient follow-up with serial CT scans of the chest. Objective - Vital Signs Vital signs: Vital Signs Temp 97 F L 05/02/20 07:55 Pulse 59 L 05/02/20 07:55 Resp 14 05/02/20 07:55 BP 120/58 05/02/20 07:55 Pulse Ox 97 05/02/20 07:55 Intake & Output 05/01/20 05/02/20 05/02/20 18:59 06:59 18:59 Intake Total 350 360 Output Total 1700 400 Balance -1350 -400 360 Weight 46.4 kg Intake: Oral 350 360 Output: Urine 1700 400 Other: Voiding Method Bedside Commode Bedside Commode # Voids 1 - Exam GENERAL EXAM: Alert, very pleasant, 79-year-old resting comfortably in bed, 2 L of oxygen pulse ox of 96% comfortable in no apparent distress. HEAD: Normocephalic/atraumatic. EYES: Normal reaction of pupils, equal size. Conjunctiva pink, sclera white. NOSE: Clear with pink turbinates. THROAT: No erythema or exudates. NECK: No masses, no JVD, no thyroid enlargement, no adenopathy. CHEST: No chest wall deformity. Symmetrical expansion. LUNGS: Equal air entry with no crackles, wheeze, rhonchi or dullness. CVS: Regular rate and rhythm, normal S1 and S2, no gallops, no murmurs, no rubs ABDOMEN: Soft, nontender. No hepatosplenomegaly, normal bowel sounds, no guarding or rigidity. EXTREMITIES: No clubbing, no edema, no cyanosis, 2+ pulses and upper and lower extremities. MUSCULOSKELETAL: Muscle strength and tone normal. SPINE: No scoliosis or deformity SKIN: No rashes CENTRAL NERVOUS SYSTEM: Alert and oriented -3. No focal deficits, tone is normal in all 4 extremities. PSYCHIATRIC: Alert and oriented -3. Appropriate affect. Intact judgment and insight. - Labs CBC & Chem 7: 05/01/20 07:17 05/01/20 07:17 Assessment and Plan Plan: Assessment: Solitary pulmonary nodule, right infrahilar region. History of lower GI bleed, with essentially a negative EGD and colonoscopy. History of angina pectoris. History of CVA. History of fibromyalgia. Gastroesophageal reflux disease. Hyperlipidemia. History of hypertension. History of chronic anemia. Stress urinary incontinence. Prior history of cardiac surgery with valve replacement. Plan: No pulmonary complaints at this time, CT chest reviewed showing calcified nodule in the right lung that we will need outpatient follow-up in 3 months, follow-up appointment with Dr. Cheng on an outpatient basis in 5-6 weeks after discharge. I performed a history & physical examination of the patient and discussed their management with my nurse practitioner, Sejal Herring. I reviewed the nurse practitioner's note and agree with the documented findings and plan of care. Lung sounds are positive for diminished breath sounds. The findings and the impression was discussed with the patient. I attest to the documentation by the nurse practitioner. Time with Patient: Less than 30
[2020-05-02 12:06] VITALS: BP 102/54
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
[2020-05-02 13:50] VITALS: BMI 18.1
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
== END 2020-05-02 16:04 | disposition home health service (06) | DRG 377 ==
LOC: EC 15:29 → 3SCARD 17:49
PROVIDERS: ADMIT Internal Medicine; ATTEND Internal Medicine
PROC: 0DJ08ZZ Inspection of Upper Intestinal Tract, Via Natural or Artificial Opening Endoscopic (ICD-10-PCS; principal; 2020-04-27 12:40)
PROC: 0DBH8ZZ Excision of Cecum, Via Natural or Artificial Opening Endoscopic (ICD-10-PCS; 2020-04-27 12:40)
DX: K57.31 Diverticulosis of large intestine without perforation or abscess with bleeding (principal); J15.6 Pneumonia due to other Gram-negative bacteria; D62 Acute posthemorrhagic anemia; F33.9 Major depressive disorder, recurrent, unspecified; I50.22 Chronic systolic (congestive) heart failure; F02.80 Dementia in other diseases classified elsewhere, unspecified severity, without behavioral disturbance, psychotic disturbance, mood disturbance, and anxiety; G30.9 Alzheimer's disease, unspecified; I11.0 Hypertensive heart disease with heart failure; F01.50 Vascular dementia, unspecified severity, without behavioral disturbance, psychotic disturbance, mood disturbance, and anxiety; Z20.822 Contact with and (suspected) exposure to COVID-19; I48.0 Paroxysmal atrial fibrillation; K64.8 Other hemorrhoids; E78.5 Hyperlipidemia, unspecified; K21.9 Gastro-esophageal reflux disease without esophagitis; M79.7 Fibromyalgia; H91.90 Unspecified hearing loss, unspecified ear; M19.90 Unspecified osteoarthritis, unspecified site; R42 Dizziness and giddiness; M81.0 Age-related osteoporosis without current pathological fracture; R91.1 Solitary pulmonary nodule; N39.3 Stress incontinence (female) (male); H53.8 Other visual disturbances; K57.30 Diverticulosis of large intestine without perforation or abscess without bleeding; D12.0 Benign neoplasm of cecum; K29.70 Gastritis, unspecified, without bleeding; K25.9 Gastric ulcer, unspecified as acute or chronic, without hemorrhage or perforation; Z71.3 Dietary counseling and surveillance; Z79.01 Long term (current) use of anticoagulants; Z79.899 Other long term (current) drug therapy; Z86.73 Personal history of transient ischemic attack (TIA), and cerebral infarction without residual deficits; Z86.010 Personal history of colon polyps; Z90.710 Acquired absence of both cervix and uterus; Z95.2 Presence of prosthetic heart valve; Z98.84 Bariatric surgery status; Z90.49 Acquired absence of other specified parts of digestive tract; Z98.890 Other specified postprocedural states; Z80.9 Family history of malignant neoplasm, unspecified
CPT/HCPCS: 36415; 43235; 45385; 71045; 71046; 71260; 80053; 82272; 83605; 83880; 84484; 85025; 85027; 85610; 85730; 86850; 86900; 86901; 87635; 88305; 93005; 94640; 94760; 99285

== ENCOUNTER 2020-07-01 19:30 | Inpatient (IN) | payer MEDICARE, BC ==
--- NOTE | 2020-07-01 19:56 | ED ---
Fall HPI - General Chief Complaint: Fall Stated Complaint: Fall Time Seen by Provider: 07/01/20 19:33 Source: EMS Mode of arrival: EMS - History of Present Illness Initial Comments: Cynthia is a pleasantly demented 79yo female who is brought to the ER today by ambulance for evaluation of right hip injury. Daughter reports that around 4 PM her mother was sitting in a chair at the kitchen table. Daughter walked outside and was waiting to her through the window, she states that she looked away for approximately 30 seconds and her mother attempted to push herself away from the table and stand up and must a fallen. She landed on the ground with a right hip. Since that time she's been in significant pain which prompted the daughter to call EMS for transport to the hospital. - Related Data Home Medications Medication Instructions Recorded Confirmed Ferrous Sulfate [Iron] 325 mg PO DAILY 05/05/17 04/25/20 Memantine [Namenda] 10 mg PO BID 05/05/17 04/25/20 Metoprolol Tartrate 25 mg PO BID 05/05/17 04/25/20 Multivitamins, Thera [Multivitamin 1 tab PO DAILY 05/05/17 04/25/20 (formulary)] Rivaroxaban [Xarelto] 20 mg PO DAILY 05/05/17 04/25/20 Acetaminophen [Tylenol] 500 mg PO BID PRN 04/25/20 04/25/20 Atorvastatin [Lipitor] 40 mg PO HS 04/25/20 04/25/20 Calcium Carbonate [Calcium] 1,200 mg PO DAILY 04/25/20 04/25/20 Cholecalciferol [Vitamin D3 (25 50 mcg PO DAILY 04/25/20 04/25/20 Mcg = 1000 Iu)] Cyanocobalamin (Vitamin B-12) 1,000 mcg PO DAILY 04/25/20 04/25/20 [Vitamin B-12] DULoxetine HCL [Cymbalta] 20 mg PO DAILY 04/25/20 04/25/20 Docusate [Colace] 200 mg PO DAILY 04/25/20 04/25/20 Meclizine [Antivert] 12.5 mg PO BID 04/25/20 04/25/20 Nitroglycerin Sl Tabs [Nitrostat] 0.4 mg SUBLINGUAL Q5M PRN 04/25/20 04/25/20 Potassium Chloride ER [K-Dur 20] 20 meq PO DAILY 04/25/20 04/25/20 Previous Rx's Medication Instructions Recorded Amoxic-Pot Clav 500-125 mg 1 each PO BID #14 tab 05/02/20 [Augmentin 500-125 mg] Bumetanide [BUMEX] 2 mg PO DAILY tab 05/02/20 Hydrocortisone Suppository 25 mg RECTAL DAILY #10 supp 05/02/20 [Anusol-Hc] Pantoprazole [Protonix] 40 mg PO AC-BID #60 tablet. 05/02/20 Allergies Allergy/AdvReac Type Severity Reaction Status Date / Time No Known Allergies Allergy Verified 04/25/20 18:45 Review of Systems ROS Statement: Those systems with pertinent positive or pertinent negative responses have been documented in the HPI. ROS Other: All systems not noted in ROS Statement are negative. 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 (hx blood clot behind rt eye from TIA), anemia, urinary leakage, gets dizzy when standing up History of Any Multi-Drug Resistant Organisms: None Reported Past Surgical History: Bariatric Surgery, Cardiac Valve Replacement, Cholecystectomy, Heart Catheterization, Hysterectomy, Orthopedic Surgery Additional Past Surgical History / Comment(s): 2 heart valve replaced, torn retina left eye, left knee surgery Past Anesthesia/Blood Transfusion Reactions: No Reported Reaction Past Psychological History: No Psychological Hx Reported Smoking Status: Never smoker Past Alcohol Use History: Occasional Past Drug Use History: None Reported - Past Family History Mother Family Medical History: Cancer General Exam - General Exam Comments Initial Comments: Physical Exam GENERAL: Patient is well-developed and well-nourished. Patient is nontoxic and well-hydrated and is in no distress. HENT: Normocephalic, Atraumatic. EYES: PERRL, EOMI PULMONARY: Unlabored respirations. CARDIOVASCULAR: RRR Warm and well perfused extremities ABDOMEN: Non-distended SKIN: Abrasion to right hip : Deferred NEUROLOGIC: Alert and oriented Normal speech Normal gait MUSCULOSKELETAL: Moving all extremities with no apparent injury PSYCHIATRIC: No SI/HI Limitations: no limitations Course Vital Signs 07/01/20 19:32 Temperature 97 F L Respiratory 18 Rate Blood Pressure 122/49 O2 Sat by Pulse 96 Oximetry Medical Decision Making - Medical Decision Making She was seen and evaluated history was obtained from daughter bedside as patient has advanced dementia X-rays were obtained and confirm a superior and inferior pubic rami fracture This fracture was discussed with Jose FARRELL inspection engineer for orthopedics who recommended CT of the pelvis and admission with medicine consult Results were discussed with the patient and daughter bedside who agree with plan for admission daughter will remain at bedside to help reorient mother as her sundowning occurs at night. Disposition Clinical Impression: Pelvic fracture, Fall Disposition: ADMITTED IP TO THIS HOSP Condition: Stable Referrals: Deirdre Henderson MD [Primary Care Provider] - 1-2 days
--- NOTE | 2020-07-01 20:23 | XR ---
EXAMINATION TYPE: XR Hip RT and AP Pelvis DATE OF EXAM: 07/01/2020 COMPARISON: NONE HISTORY: Pain TECHNIQUE: 3 views FINDINGS: There is fracture of the right side superior and inferior pubic rami. Proximal femurs are i ntact. Sacroiliac joints appear intact. Acetabula appear intact. IMPRESSION: Acute fractures right pubic rami.
[2020-07-01] MEDS ORDERED: NALOXONE 0.4 MG/ML 1 ML VIAL IV PRN (20:52)
[2020-07-01] MEDS ORDERED: MORPHINE SULFATE 4 MG/ML SYRINGE IV PRN (21:03)
[2020-07-01] MEDS ORDERED: IBUPROFEN 400 MG TAB PO PRN (21:03)
--- NOTE | 2020-07-01 21:26 | CT ---
EXAMINATION TYPE: CT pelvis wo con DATE OF EXAM: 07/01/2020 COMPARISON: None HISTORY: abnormal xray CT DLP: 204.9 mGycm Automated exposure control for dose reduction was used. Images were obtained from the top of the iliac crests to the subtrochanteric femurs without contrast. There is fracture of the right ischium with no displacement. There is fracture right superior and inf erior pubic rami without significant displacement. There is some increased density in the right lower pelvic sidewall consistent with small hematoma. Urinary bladder distends smoothly. There is no free fluid in the pelvis. There are surgical clips in the bowel in the left lower quadrant. The sacroiliac joints appear intact. There is some osteopenia. I see no sacral fracture. The proximal femurs are intact. The acetabula appear intact. There is no evidence of free air. There is no ascites. IMPRESSION: Acute nondisplaced right pubic rami fractures. Acute nondisplaced right ischium fracture. Small hematoma on the lower lateral pelvic sidewall measures 1.5 cm in maximum thickness. Subcutaneous density around the pelvis could relate to anasarca.
[2020-07-01] MEDS: ACETAMINOPHEN TAB 325 MG TAB PO PRN (21:57)
[2020-07-02] MEDS ORDERED: ACETAMINOPHEN TAB 500 MG TAB PO PRN (08:24)
[2020-07-02] MEDS ORDERED: NITROGLYCERIN SL TABS 0.4 MG TAB SUBLINGUAL PRN (08:24)
[2020-07-02] MEDS: ACETAMINOPHEN TAB 325 MG TAB PO PRN ×3 (08:44→20:03)
[2020-07-02 09:41] LABS: Albumin 2.9 g/dL (3.5-5.0); Calcium 8.3 mg/dL (8.4-10.2); Potassium 3.9 mmol/L (3.5-5.1); Total Bilirubin 1.2 mg/dL (0.2-1.3); Total Protein 5.5 g/dL (6.3-8.2)
[2020-07-02 09:59] LABS: Anisocytosis Slight; Basophils % (A) 1 %; Eosinophils # (A) 0.1 k/uL (0-0.7); Eosinophils % (A) 1 %; HCT 32.9 % (34.0-46.0); HGB 10.2 gm/dL (11.4-16.0); Hypochromasia Marked; Lymphocytes % (A) 11 %; MCH 25.9 pg (25.0-35.0); MCHC 30.8 g/dL (31.0-37.0); MCV 83.9 fL (80.0-100.0); Mean Platelet Volume 8.8; Microcytosis Slight; Monocytes # (A) 0.6 k/uL (0-1.0); Monocytes % (A) 6 %; Neutrophils # (A) 6.8 k/uL (1.3-7.7); Neutrophils % (A) 78 %; Platelet Count 196 k/uL (150-450); Poikilocytosis Slight; RBC 3.92 m/uL (3.80-5.40); WBC 8.7 k/uL (3.8-10.6)
[2020-07-02] MEDS: CHOLECALCIFEROL 25 MCG (1000 IU) TABLET PO SCH (10:06)
[2020-07-02] MEDS: POTASSIUM CHLORIDE ER 20 MEQ TAB.ER PO SCH (10:06)
[2020-07-02] MEDS: CALCIUM CARBONATE 500 MG CHEWABLE PO SCH (10:06)
[2020-07-02] MEDS: CYANOCOBALAMIN 500 MCG TAB PO SCH (10:06)
[2020-07-02] MEDS: FERROUS SULFATE 325 MG TAB PO SCH (10:06)
[2020-07-02] MEDS: DOCUSATE 100 MG CAP PO SCH (10:06)
[2020-07-02] MEDS: MULTIVITAMINS, THERA 1 EACH TAB PO SCH (10:06)
[2020-07-02] MEDS: BUMETANIDE 1 MG TAB PO SCH (10:07)
[2020-07-02] MEDS: DULoxetine HCL 20 MG CAPSULE.DR PO SCH (10:07)
[2020-07-02] MEDS: RIVAROXABAN 20 MG TAB PO SCH ×2 (10:07→12:37)
[2020-07-02] MEDS: MEMANTINE 10 MG TAB PO SCH ×2 (10:07→20:03)
[2020-07-02] MEDS: MECLIZINE 12.5 MG TAB PO SCH ×2 (10:07→20:02)
[2020-07-02] MEDS: PANTOPRAZOLE 40 MG TABLET PO SCH ×2 (10:18→17:04)
--- NOTE | 2020-07-02 10:22 | P.HPOR ---
History of Present Illness H&P Date: 07/02/20 Chief Complaint: Superior and inferior right pubic rami fracture, right ishium fracture Patient is an 79-year-old female who was brought to [facility] yesterday evening by family after sustaining a fall at home. Patient was apparently getting up out of her chair when she lost her balance and fell directly on her right side. She was initially able to weight-bear, hours later after the fall ambulation became more difficult she was brought to the hospital for further evaluation. There was no history of the patient striking her head with no loss of consciousness. Patient's daughter was present today at bedside to help with history. The patient has 2 daughters, they alternate weeks with standing with the patient, she does have history of dementia. At bedside in the emergency room today, she is resting comfortably. She notes most of the pain in the right lower extremity with movement. She denies pain of the right lower leg, she denies any discomfort of the left lower extremity, bilateral upper extremities, new onset cervical, thoracic or lumbar pain. She denies any headaches, lightheadedness, chest pain, shortness of breath, nausea vomiting, fever or chills. Patient normally ambulates with walker or cane. She denies any previous surgery involving the right lower extremity. Review of Systems Constitutional: Reports as per HPI Past Medical History Past Medical History: Atrial Fibrillation, Chest Pain / Angina, Heart Failure, CVA/TIA, Dementia, Fibromyalgia, GERD/Reflux, GI Bleed, Hyperlipidemia, Hypertension, Osteoarthritis (OA), Pneumonia Additional Past Medical History / Comment(s): Paroxysmal Afib, vascular dementia , blood clot behind R eye/blurred vision, multiple CVAs/tias, gastritis, gastric ulcer, diverticular disease, hemorrhoids, rectal bleed 04/2020 with acute blood loss amenia, iron anemia, constipation, arthritis bilateral hands, osteoporosis, urinary leakage, chronic vertigo, FALLS. History of Any Multi-Drug Resistant Organisms: None Reported Past Surgical History: Bariatric Surgery, Cardiac Valve Replacement, Cholecystectomy, Heart Catheterization, Hysterectomy, Orthopedic Surgery Additional Past Surgical History / Comment(s): Aortic and mitral valve replacement, vertical band gastroplasty, L eye surgery for retinal tear, L knee injury with surgical repair, EGDs, colonoscopies/benign polyp Past Anesthesia/Blood Transfusion Reactions: No Reported Reaction Smoking Status: Never smoker - Past Family History Mother Family Medical History: Cancer Additional Family Medical History / Comment(s): Mother had female and colon cancer. Father Family Medical History: Diabetes Mellitus, Hyperlipidemia, Hypertension Medications and Allergies Home Medications Medication Instructions Recorded Confirmed Type Ferrous Sulfate [Iron] 325 mg PO DAILY 05/05/17 07/01/20 History Memantine [Namenda] 10 mg PO BID 05/05/17 07/01/20 History Multivitamins, Thera [Multivitamin 1 tab PO DAILY 05/05/17 07/01/20 History (formulary)] Rivaroxaban [Xarelto] 20 mg PO DAILY 05/05/17 07/01/20 History Acetaminophen [Tylenol] 500 mg PO BID PRN 04/25/20 07/01/20 History Atorvastatin [Lipitor] 40 mg PO HS 04/25/20 07/01/20 History Calcium Carbonate [Calcium] 1,200 mg PO DAILY 04/25/20 07/01/20 History Cholecalciferol [Vitamin D3 (25 50 mcg PO DAILY 04/25/20 07/01/20 History Mcg = 1000 Iu)] Cyanocobalamin (Vitamin B-12) 1,000 mcg PO DAILY 04/25/20 07/01/20 History [Vitamin B-12] DULoxetine HCL [Cymbalta] 20 mg PO DAILY 04/25/20 07/01/20 History Docusate [Colace] 200 mg PO DAILY 04/25/20 07/01/20 History Meclizine [Antivert] 12.5 mg PO BID 04/25/20 07/01/20 History Nitroglycerin Sl Tabs [Nitrostat] 0.4 mg SUBLINGUAL Q5M PRN 04/25/20 07/01/20 History Potassium Chloride ER [K-Dur 20] 20 meq PO DAILY 04/25/20 07/01/20 History Bumetanide [BUMEX] 2 mg PO DAILY tab 05/02/20 07/01/20 Rx Pantoprazole [Protonix] 40 mg PO AC-BID #60 tablet. 05/02/20 07/01/20 Rx Allergies Allergy/AdvReac Type Severity Reaction Status Date / Time No Known Allergies Allergy Verified 07/01/20 21:08 Physical Examination Right lower extremity: No obvious open lesions or sores are present about the extremity, there is no significant areas of erythema or soft tissue swelling Patient is tender with palpation of the right proximal femur, she notes most of the pain deep in the groin with range of motion of the lower extremity mainly with internal and external rotation with flexion She is nontender with palpation involving the distal right femur, knee, lower leg, foot or ankle She is able to straight leg raise, this does reproduce discomfort. Plantar flexion, dorsiflexion, EHL, FHL are intact. No cervical strength deficits are appreciated with this. Her sensory exam to light touch throughout the extremity is intact, her calf is soft, no tenderness with palpation. Dorsalis pedis pulses 2+ General orthopedic exam: She is nontender with palpation of the midline and paraspinal regions of the cervical, thoracic or lumbar region Range of motion of the bilateral upper extremities is intact in all major muscle groups, there is no obvious point tenderness throughout the bilateral upper extremities No obvious skin changes noted throughout the left lower extremity, she can straight leg raise, there is no pain with logroll maneuver. Hip flexion, knee extension, knee flexion, plantar flexion, dorsiflexion, EHL, FHL are intact. Sensory exam to light touch throughout the left lower extremity is intact, dorsalis pedis pulses 2+. Results - Labs Labs: Abnormal Lab Results - Last 24 Hours (Table) 07/02/20 07/02/20 Range/Units 09:17 09:17 Hgb 10.2 L (11.4-16.0) gm/dL Hct 32.9 L (34.0-46.0) % MCHC 30.8 L (31.0-37.0) g/dL RDW 20.0 H (11.5-15.5) % Sodium 133 L (137-145) mmol/L Chloride 97 L (98-107) mmol/L BUN 26 H (7-17) mg/dL Glucose 107 H (74-99) mg/dL Calcium 8.3 L (8.4-10.2) mg/dL Total Protein 5.5 L (6.3-8.2) g/dL Albumin 2.9 L (3.5-5.0) g/dL H & H 07/02/20 Range/Units 09:17 Hgb 10.2 L (11.4-16.0) gm/dL Hct 32.9 L (34.0-46.0) % Result Diagrams: 07/02/20 09:17 07/02/20 09:17 - Diagnostic results Hip x-ray: report reviewed, image reviewed Hip CT: report reviewed, image reviewed (Reports and images reviewed of both the hip x-ray and head CT. Report does note a minimally displaced right sided superior and inferior. Rami fracture. Also a nondisplaced right patient fracture is appreciated. The SI joints appear stable.) Assessment and Plan Assessment: Superior and inferior right-sided pubic rami fracture, minimally displaced Right patient fracture, minimally displaced Status post fall from standing Dementia Plan: I was able to discuss the case, including with physical exam findings and imaging studies my attending Dr. Ponce. Nor orthopedic surgical intervention recommended at this time Recommend conservative management, this to include pain control with low-dose oral narcotics as needed, okay to use [id number] Tylenol also Recommend weight-bear as tolerated with a walker at all times, PT/OT evaluation We'll continue to follow the patient during inpatient stay, she may be able to go home with home health care due to the extra help she does have at home, we can also consider subacute rehab placement Internal medicine recommendations GI and DVT prophylaxis per internal medicine We will continue to follow during hospital stay Time with Patient: Less than 30
[2020-07-02] MEDS ORDERED: PANTOPRAZOLE 40 MG TABLET PO SCH (17:30)
[2020-07-02] MEDS: ATORVASTATIN 40 MG TAB PO SCH (20:03)
[2020-07-03] MEDS: ACETAMINOPHEN TAB 325 MG TAB PO PRN ×5 (02:07→21:32)
--- NOTE | 2020-07-03 07:30 | P.PN ---
Subjective Progress Note Date: 07/03/20 Principal diagnosis: Right-sided superior and inferior pubic rami fracture, right ischium fracture Patient evaluated at bedside, daughter is present. PT did not see patient yester day. Her pain is controlled with current medication. She is having difficulty raising the leg. She denies any acute chest pain or shortness of breath Objective - Vital Signs Vital signs: Vital Signs Temp 98.1 F 07/03/20 02:11 Pulse 79 07/03/20 02:11 Resp 16 07/03/20 02:11 BP 106/66 07/03/20 02:11 Pulse Ox 97 07/03/20 02:11 Intake & Output 07/02/20 07/03/20 07/03/20 18:59 06:59 18:59 Intake Total 1100 Output Total 450 450 Balance -450 650 Weight 46.266 kg Intake: Oral 1100 Output: Urine 450 450 Other: Voiding Method Indwelling Catheter Indwelling Catheter - Exam Right lower extremity: No obvious open lesions or sores are present about the extremity, there is no significant areas of erythema or soft tissue swelling Patient is tender with palpation of the right proximal femur, she notes most of the pain deep in the groin with range of motion of the lower extremity mainly with internal and external rotation with flexion She is nontender with palpation involving the distal right femur, knee, lower leg, foot or ankle She is able to straight leg raise, this does reproduce discomfort. Plantar flexion, dorsiflexion, EHL, FHL are intact. No cervical strength deficits are appreciated with this. Her sensory exam to light touch throughout the extremity is intact, her calf is soft, no tenderness with palpation. Dorsalis pedis pulses 2+ General orthopedic exam: She is nontender with palpation of the midline and paraspinal regions of the cervical, thoracic or lumbar region Range of motion of the bilateral upper extremities is intact in all major muscle groups, there is no obvious point tenderness throughout the bilateral upper extremities No obvious skin changes noted throughout the left lower extremity, she can straight leg raise, there is no pain with logroll maneuver. Hip flexion, knee extension, knee flexion, plantar flexion, dorsiflexion, EHL, FHL are intact. Sensory exam to light touch throughout the left lower extremity is intact, dorsalis pedis pulses 2+. - Labs CBC & Chem 7: 07/02/20 09:17 07/02/20 09:17 Labs: Abnormal Lab Results - Last 24 Hours (Table) 07/02/20 07/02/20 Range/Units 09:17 09:17 Hgb 10.2 L (11.4-16.0) gm/dL Hct 32.9 L (34.0-46.0) % MCHC 30.8 L (31.0-37.0) g/dL RDW 20.0 H (11.5-15.5) % Sodium 133 L (137-145) mmol/L Chloride 97 L (98-107) mmol/L BUN 26 H (7-17) mg/dL Glucose 107 H (74-99) mg/dL Calcium 8.3 L (8.4-10.2) mg/dL Total Protein 5.5 L (6.3-8.2) g/dL Albumin 2.9 L (3.5-5.0) g/dL Assessment and Plan Assessment: Superior and inferior right-sided pubic rami fracture, minimally displaced Right patient fracture, minimally displaced Status post fall from standing Dementia Plan: Recommend conservative management, this to include pain control with low-dose oral narcotics as needed, okay to use [id number] Tylenol also Recommend weight-bear as tolerated with a walker at all times, PT/OT evaluation We'll continue to follow the patient during inpatient stay, she may be able to go home with home health care due to the extra help she does have at home, we can also consider subacute rehab placement Internal medicine recommendations GI and DVT prophylaxis per internal medicine We likely transfer primary addmission to internal medicine and our group will remain on consult Time with Patient: Less than 30
[2020-07-03] MEDS: POTASSIUM CHLORIDE ER 20 MEQ TAB.ER PO SCH (08:52)
[2020-07-03] MEDS: PANTOPRAZOLE 40 MG TABLET PO SCH ×2 (08:52→17:36)
[2020-07-03] MEDS: MULTIVITAMINS, THERA 1 EACH TAB PO SCH (08:54)
[2020-07-03] MEDS: MEMANTINE 10 MG TAB PO SCH ×2 (08:54→21:32)
[2020-07-03] MEDS: CYANOCOBALAMIN 500 MCG TAB PO SCH (08:54)
[2020-07-03] MEDS: MECLIZINE 12.5 MG TAB PO SCH ×2 (08:55→21:32)
[2020-07-03] MEDS: FERROUS SULFATE 325 MG TAB PO SCH (08:56)
[2020-07-03] MEDS: DULoxetine HCL 20 MG CAPSULE.DR PO SCH (08:56)
[2020-07-03] MEDS: BUMETANIDE 1 MG TAB PO SCH (08:57)
[2020-07-03] MEDS: ASPIRIN 81 MG PO SCH (08:57)
[2020-07-03] MEDS: CHOLECALCIFEROL 25 MCG (1000 IU) TABLET PO SCH (08:57)
[2020-07-03] MEDS: DOCUSATE 100 MG CAP PO SCH (08:57)
[2020-07-03] MEDS: CALCIUM CARBONATE 500 MG CHEWABLE PO SCH (08:57)
[2020-07-03 13:39] VITALS: BMI 16.9
--- NOTE | 2020-07-03 18:13 | P.CONS ---
History of Present Illness - Reason for Consult Consult date: 07/02/20 Medical management Requesting physician: Bryan Ponce - Chief Complaint Pubic rami Fracture - History of Present Illness HISTORY OF PRESENT ILLNESS: This is an 79-year-old female in a patient with a previous medical history significant for hypertension and hypertensive cardiovascular disease, hyperlipidemia, history of cerebrovascular accident in the past, paroxysmal atrial fibrillation currently on chronic anticoagulation, history of aortic valve disease status post aortic valve replacement, has been under the care of cardiology at [facility] and regular basis, history of chronic vertigo, 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, patient was last hospitalized at [facility] because of her rectal bleeding at that time she was taken off her Xarelto and she was seen in consultation by gastroenterology and she underwent EGD and colonoscopy that showed peptic ulcer disease without active bleeding and diverticulosis with internal hemorrhoids, patient was discharged home and has been doing okay, patient tried to get up to walk on her way to reach her walker she ended up getting dizzy and she went down landed on the floor ended up with severe pain in the right groin area, patient was transported to [facility] for evaluation underwent x-rays of the pelvis area as well as a computed tomography scan that showed right pubic rami fractures she was admitted under orthopedic surgery and we were asked to see the patient for medical management, she had a Gonzales catheter placement, she was seen in consultation by physical therapy she was started on pain management as well, most likely she will require subacute rehabitation. Review of systems: Constitutional: No fever, no chills, no night sweats. No weight change. No weakness, fatigue or lethargy. No daytime sleepiness. EENT: No headache. No blurred vision or double vision, no loss of vision. No loss of Hearing, no ringing in the ears, no dizziness. No nasal drainage or congestion. No epistaxis. No sore throat. Lungs: No shortness of breath, cough, no sputum production. Reports wheezing. Cardiovascular: Reported chest pain, no lower extremity edema. Reported palpitations. No paroxysmal nocturnal dyspnea. No orthopnea. No lightheadedness or dizziness. No syncopal episodes. Abdominal: No abdominal pain. No nausea, vomiting. No diarrhea. No constipation. No bloody or tarry stools.. No loss of appetite. Genitourinary: No dysuria, increased frequency, urgency. No urinary retention. Musculoskeletal: No myalgias. Positive for muscle weakness, positive for gait dysfunction, positive for frequent falls. No back pain. No neck pain. Integumentary: No wounds, no lesions. No rash or pruritus. No unusual bru ising. No change in hair or nails. Neurologic: No aphasia. No facial droop. No change in mentation. No head injury. No headache. No paralysis. No paresthesia. Positive for moderate to severe dementia Psychiatric: Patient Is depression, anxiety, no suicidal ideation per Endocrine: No abnormal blood sugars. No weight change. No excessive sweating or thirst. No cold intolerance. Past medical history: 1. Hypertension and hypertensive cardiovascular disease . 2. Hyperlipidemia. 3. Cerebrovascular accident. 4. Paroxysmal atrial fibrillation. 5. Aortic valve disease status post area valve replacement 6. Mitral valve regurgitation status post mitral valve repair. 7. Moderate to severe vascular dementia. 8. Peptic ulcer disease. 9. Diverticulosis. 10. Anemia of chronic blood loss. 11. Fibromyalgia. 12. GERD. 13. Peripheral dizziness. 14. Osteoarthritis. 15. Multiple TIA. 16. Right eye blindness. 17. Hard of hearing. 18. Osteoporosis. Past surgical history : 1. Aortic valve replacement. 2. Mitral valve repair. 3. Bariatric surgery. 4. Cholecystectomy. 5. Left heart catheterization. 6. Left knee meniscal tear repair. 7. Hysterectomy. 8. Left retinal tear. 9. EGD colonoscopy 2020. Social history: . Patient denies any history of smoking, she denies any history of super drinking, no drug use or abuse, she was with her caregiver and her daughters check on her and regular basis. She uses a walker for ambulation, she has moderate to severe vascular dementia, she becomes more forgetful over the last few months. Family history: Mother at age of 55 from colon cancer, father at age of 55 from stroke and a heart disease, patient has one brother, she had 2 sons one of them passed and 2 daughters no major medical problems. Physical examination: Gen: This is a 79-year-old female. Patient is resting in bed and appears to be comfortable with minimal right groin pain per HEENT: Head is atraumatic, normocephalic. Pupils equal, round. Sclerae is anicteric. , conjunctivae were pale, mucous membranes and mouth are somewhat dry. NECK: Supple. No JVD. No lymphadenopathy. No thyromegaly. LUNGS: Clear to auscultation. No wheezes or rhonchi. No intercostal retractions. no chest wall tenderness, HEART: First heart sound is depressed, second heart sound is normal, there is a 2/6 systolic ejection murmur at the left sternal border. ABDOMEN: Soft. non-tender, nondistended, positive bowel sounds, no hepatomegaly. EXTREMITIES: No pedal edema. No calf tenderness. Dorsalis pedis +2 bilater ally. NEUROLOGICAL: Patient is awake, alert and oriented x3. Cranial nerves 2 through 12 are grossly intact, muscle power 4 out of 5 in upper extremities 3 out of 5 in the right lower extremity 4 out of 5 in the left lower extremity Babinski's were flexor bilaterally. Assessment and plan: 1. status post a fall with right pubic from my fractures. Continue current pain management, continue with incentive spirometer to reduce the incidence of atelectasis and hospital-acquired pneumonia, physical therapy evaluation, social services counselor consultation, for subacute rehabitation, 2. History of peptic ulcer disease with chronic blood loss anemia. Hemoglobin is stable at this time. 3. History of aortic valve disease status post aortic valve replacement and mitral valve repair. Continue patient on metoprolol 25 mg orally twice every day. 4. Hypertension and hypertensive cardiovascular disease. Continue patient on metoprolol 25 mg orally twice every day. 5. Hyperlipidemia. Continue Lipitor 40 mg orally once every day. 6. History of moderate/severe vascular dementia. Continue Namenda 10 mg orally twice every day. 7. Depressive disorder. Continue Cymbalta 20 mg orally once every day. 8. Paroxysmal atrial fibrillation currently in sinus rhythm. Continue Xarelto at 20 mg orally once every day. 9. Iron deficiency anemia. Continue patient on iron 325 mg orally once every day. 10. Chronic vertigo. Continue meclizine 12.5 mg orally twice every day. 11. Osteoporosis. Currently on calcium and prolia. 12. DVT prophylaxis . Continue patient on Xarelto 20 mg once every day. 13. GI prophylaxis. Continue patient on Protonix 40 mg orally once every day. 14. Thank you for the consult we will follow the patient with you. 15. Patient will likely require subacute rehabilitation. 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 (hx blood clot behind rt eye from TIA), anemia, urinary leakage, gets dizzy when standing up History of Any Multi-Drug Resistant Organisms: None Reported Past Surgical History: Bariatric Surgery, Cardiac Valve Replacement, Cholecystectomy, Heart Catheterization, Hysterectomy, Orthopedic Surgery Additional Past Surgical History / Comment(s): 2 heart valve replaced, torn retina left eye, left knee surgery Past Anesthesia/Blood Transfusion Reactions: No Reported Reaction Past Psychological History: No Psychological Hx Reported Smoking Status: Never smoker Past Alcohol Use History: Occasional Past Drug Use History: None Reported - Past Family History Mother Family Medical History: Cancer Father Family Medical History: Diabetes Mellitus, Hyperlipidemia, Hypertension Medications and Allergies Home Medications Medication Instructions Recorded Confirmed Type Ferrous Sulfate [Iron] 325 mg PO DAILY 05/05/17 07/01/20 History Memantine [Namenda] 10 mg PO BID 05/05/17 07/01/20 History Multivitamins, Thera [Multivitamin 1 tab PO DAILY 05/05/17 07/01/20 History (formulary)] Rivaroxaban [Xarelto] 20 mg PO DAILY 05/05/17 07/01/20 History Acetaminophen [Tylenol] 500 mg PO BID PRN 04/25/20 07/01/20 History Atorvastatin [Lipitor] 40 mg PO HS 04/25/20 07/01/20 History Calcium Carbonate [Calcium] 1,200 mg PO DAILY 04/25/20 07/01/20 History Cholecalciferol [Vitamin D3 (25 50 mcg PO DAILY 04/25/20 07/01/20 History Mcg = 1000 Iu)] Cyanocobalamin (Vitamin B-12) 1,000 mcg PO DAILY 04/25/20 07/01/20 History [Vitamin B-12] DULoxetine HCL [Cymbalta] 20 mg PO DAILY 04/25/20 07/01/20 History Docusate [Colace] 200 mg PO DAILY 04/25/20 07/01/20 History Meclizine [Antivert] 12.5 mg PO BID 04/25/20 07/01/20 History Nitroglycerin Sl Tabs [Nitrostat] 0.4 mg SUBLINGUAL Q5M PRN 04/25/20 07/01/20 History Potassium Chloride ER [K-Dur 20] 20 meq PO DAILY 04/25/20 07/01/20 History Bumetanide [BUMEX] 2 mg PO DAILY tab 05/02/20 07/01/20 Rx Pantoprazole [Protonix] 40 mg PO AC-BID #60 tablet. 05/02/20 07/01/20 Rx Allergies Allergy/AdvReac Type Severity Reaction Status Date / Time No Known Allergies Allergy Verified 07/01/20 21:08 Physical Exam Vitals: Vital Signs Temp Pulse Resp BP Pulse Ox 07/02/20 03:00 98.1 F 84 16 109/58 100 07/01/20 21:36 70 18 127/60 99 07/01/20 19:32 97 F L 18 122/49 96 Intake and Output 07/01/20 07/02/20 07/02/20 22:59 06:59 14:59 Other: Weight 46.266 kg Results CBC & Chem 7: 07/02/20 09:17 07/02/20 09:17
--- NOTE | 2020-07-03 18:15 | P.PN ---
Subjective Progress Note Date: 07/03/20 HISTORY OF PRESENT ILLNESS: This is an 79-year-old female in a patient with a previous medical history significant for hypertension and hypertensive cardiovascular disease, hyperlipidemia, history of cerebrovascular accident in the past, paroxysmal atrial fibrillation currently on chronic anticoagulation, history of aortic valve disease status post aortic valve replacement, has been under the care of cardiology at [facility] and regular basis, history of chronic vertigo, 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, patient was last hospitalized at [facility] because of her rectal bleeding at that time she was taken off her Xarelto and she was seen in consultation by gastroenterology and she underwent EGD and colonoscopy that showed peptic ulcer disease without active bleeding and diverticulosis with internal hemorrhoids, patient was discharged home and has been doing okay, patient tried to get up to walk on her way to reach her walker she ended up getting dizzy and she went down landed on the floor ended up with severe pain in the right groin area, patient was transported to [facility] for evaluation underwent x-rays of the pelvis area as well as a computed tomography scan that showed right pubic rami fractures she was admitted under orthopedic surgery and we were asked to see the patient for medical management, she had a Gonzales catheter placement, she was seen in consultation by physical therapy she was started on pain management as well, most likely she will require subacute rehabitation. 07/03: Patient is laying down in bed she continues to be in moderate amount of pain in the right groin area, she continues to require 2 people assist non- weight bearing in the right lower leg 70, she can his Gonzales catheter in place, she is eating a bit better today, her daughter was at the bedside, she is concerned about taking her home, she will likely require subacute rehabilitation, social sciences instructor will give her the options available, patient seems to be tolerating her treatment very well. Review of systems: Constitutional: No fever, no chills, no night sweats. No weight change. No weakness, fatigue or lethargy. No daytime sleepiness. EENT: No headache. No blurred vision or double vision, no loss of vision. No loss of Hearing, no ringing in the ears, no dizziness. No nasal drainage or congestion. No epistaxis. No sore throat. Lungs: No shortness of breath, cough, no sputum production. Reports wheezing. Cardiovascular: Reported chest pain, no lower extremity edema. Reported palpitations. No paroxysmal nocturnal dyspnea. No orthopnea. No lightheadedness or dizziness. No syncopal episodes. Abdominal: No abdominal pain. No nausea, vomiting. No diarrhea. No constipation. No bloody or tarry stools.. No loss of appetite. Genitourinary: No dysuria, increased frequency, urgency. No urinary retention. Musculoskeletal: No myalgias. Positive for muscle weakness, positive for gait dysfunction, positive for frequent falls. No back pain. No neck pain. Integumentary: No wounds, no lesions. No rash or pruritus. No unusual bruising. No change in hair or nails. Neurologic: No aphasia. No facial droop. No change in mentation. No head injury. No headache. No paralysis. No paresthesia. Positive for moderate to severe dementia Psychiatric: Patient Is depression, anxiety, no suicidal ideation per Endocrine: No abnormal blood sugars. No weight change. No excessive sweating or thirst. No cold intolerance. Physical examination: Gen: This is a 79-year-old female. Patient is resting in bed and appears to be comfortable with minimal right groin pain per HEENT: Head is atraumatic, normocephalic. Pupils equal, round. Sclerae is anicteric. , conjunctivae were pale, mucous membranes and mouth are somewhat dry. NECK: Supple. No JVD. No lymphadenopathy. No thyromegaly. LUNGS: Clear to auscultation. No wheezes or rhonchi. No intercostal retractions. no chest wall tenderness, HEART: First heart sound is depressed, second heart sound is normal, there is a 2/6 systolic ejection murmur at the left sternal border. ABDOMEN: Soft. non-tender, nondistended, positive bowel sounds, no hepatomegaly. EXTREMITIES: No pedal edema. No calf tenderness. Dorsalis pedis +2 bilaterally. NEUROLOGICAL: Patient is awake, alert and oriented x3. Cranial nerves 2 through 12 are grossly intact, muscle power 4 out of 5 in upper extremities 3 out of 5 in the right lower extremity 4 out of 5 in the left lower extremity Babinski's were flexor bilaterally. Assessment and plan: 1. status post a fall with right pubic from my fractures. Continue current pain management, continue with incentive spirometer to reduce the incidence of atelectasis and hospital-acquired pneumonia, physical therapy evaluation, social sciences instructor consultation, for subacute rehabitation, 2. History of peptic ulcer disease with chronic blood loss anemia. Hemoglobin is stable at this time. 3. History of aortic valve disease status post aortic valve replacement and mitral valve repair. Continue patient on metoprolol 25 mg orally twice every day. 4. Hypertension and hypertensive cardiovascular disease. Continue patient on metoprolol 25 mg orally twice every day. 5. Hyperlipidemia. Continue Lipitor 40 mg orally once every day. 6. History of moderate/severe vascular dementia. Continue Namenda 10 mg orally twice every day. 7. Depressive disorder. Continue Cymbalta 20 mg orally once every day. 8. Paroxysmal atrial fibrillation currently in sinus rhythm. Continue Xarelto at 20 mg orally once every day. 9. Iron deficiency anemia. Continue patient on iron 325 mg orally once every day. 10. Chronic vertigo. Continue meclizine 12.5 mg orally twice every day. 11. Osteoporosis. Currently on calcium and prolia. 12. DVT prophylaxis . Continue patient on Xarelto 20 mg once every day. 13. GI prophylaxis. Continue patient on Protonix 40 mg orally once every day. 14. Patient will likely require subacute rehabilitation. Objective - Vital Signs Vital signs: Vital Signs Temp 96.9 F L 07/03/20 16:06 Pulse 92 07/03/20 16:06 Resp 16 07/03/20 16:06 BP 112/53 07/03/20 16:06 Pulse Ox 94 L 07/03/20 16:06 Intake & Output 07/02/20 07/03/20 07/03/20 18:59 06:59 18:59 Intake Total 1100 90 Output Total 226 790 7066 Balance -450 650 -1010 Weight 46.266 kg 46.266 kg Intake: Oral 1100 90 Output: Urine 297 199 9690 Other: Voiding Method Indwelling Catheter Indwelling Catheter Indwelling Catheter - Labs CBC & Chem 7: 07/02/20 09:17 07/02/20 09:17
[2020-07-03] MEDS: ATORVASTATIN 40 MG TAB PO SCH (21:32)
[2020-07-04 01:50] VITALS: RESP 18
[2020-07-04] MEDS: ACETAMINOPHEN TAB 325 MG TAB PO PRN (07:37)
[2020-07-04] MEDS ORDERED: ONDANSETRON 4 MG/2 ML VIAL IVP PRN (08:09)
[2020-07-04 08:36] LABS: Anisocytosis Moderate; Basophils # (A) 0.1 k/uL (0-0.2); Basophils % (A) 0 %; Eosinophils # (A) 0.2 k/uL (0-0.7); Eosinophils % (A) 1 %; HCT 32.2 % (34.0-46.0); HGB 10.3 gm/dL (11.4-16.0); Hypochromasia Slight; Lymphocytes # (A) 0.9 k/uL (1.0-4.8); Lymphocytes % (A) 6 %; MCH 26.5 pg (25.0-35.0); MCHC 32.1 g/dL (31.0-37.0); MCV 82.3 fL (80.0-100.0); Mean Platelet Volume 8.7; Microcytosis Slight; Monocytes # (A) 1.2 k/uL (0-1.0); Monocytes % (A) 8 %; Neutrophils # (A) 11.7 k/uL (1.3-7.7); Neutrophils % (A) 83 %; Platelet Count 196 k/uL (150-450); Poikilocytosis Slight; RBC 3.91 m/uL (3.80-5.40); RDW 20.4 % (11.5-15.5); WBC 14.1 k/uL (3.8-10.6)
--- NOTE | 2020-07-04 08:37 | XR ---
EXAMINATION TYPE: XR foot complete RT DATE OF EXAM: 07/04/2020 CLINICAL HISTORY: pain TECHNIQUE: Frontal, lateral and oblique images of the right foot are obtained. COMPARISON: None. FINDINGS: There is no acute fracture/dislocation evident. Mild hallux valgus deformity and erosive c hange of the first metatarsal phalangeal joint. Plantar and dorsal calcaneal spurs noted. The overlyi ng soft tissue appears unremarkable. IMPRESSION: There is no acute fracture or dislocation. ICD 10 NO FRACTURE, INITIAL EVALUATION
--- NOTE | 2020-07-04 08:37 | XR ---
EXAMINATION TYPE: XR ankle complete RT DATE OF EXAM: 07/04/2020 COMPARISON: NONE HISTORY: Pain TECHNIQUE: Frontal, lateral and oblique images of the right ankle are obtained. COMPARISON: None. FINDINGS: There is no acute fracture/dislocation evident. The joint spaces appear within normal zhou its. The overlying soft tissue appears unremarkable. IMPRESSION: There is no acute fracture or dislocation seen.
[2020-07-04] MEDS: MEMANTINE 10 MG TAB PO SCH ×2 (08:40→20:49)
[2020-07-04] MEDS: PANTOPRAZOLE 40 MG TABLET PO SCH ×2 (08:41→16:47)
[2020-07-04] MEDS: BUMETANIDE 1 MG TAB PO SCH (08:41)
[2020-07-04] MEDS: CHOLECALCIFEROL 25 MCG (1000 IU) TABLET PO SCH (08:41)
[2020-07-04] MEDS: DULoxetine HCL 20 MG CAPSULE.DR PO SCH (08:41)
[2020-07-04] MEDS: ASPIRIN 81 MG PO SCH (08:41)
[2020-07-04] MEDS: DOCUSATE 100 MG CAP PO SCH (08:41)
[2020-07-04] MEDS: FERROUS SULFATE 325 MG TAB PO SCH (08:41)
[2020-07-04] MEDS: MECLIZINE 12.5 MG TAB PO SCH ×2 (08:41→20:49)
[2020-07-04] MEDS: CALCIUM CARBONATE 500 MG CHEWABLE PO SCH (08:41)
[2020-07-04] MEDS: METOPROLOL TARTRATE 25 MG TAB PO SCH ×2 (08:42→20:49)
[2020-07-04] MEDS: POTASSIUM CHLORIDE ER 20 MEQ TAB.ER PO SCH (08:42)
[2020-07-04] MEDS: CYANOCOBALAMIN 500 MCG TAB PO SCH (08:42)
[2020-07-04] MEDS: MULTIVITAMINS, THERA 1 EACH TAB PO SCH (08:43)
--- NOTE | 2020-07-04 08:48 | P.PN ---
Subjective Progress Note Date: 07/04/20 HISTORY OF PRESENT ILLNESS: This is an 79-year-old female in a patient with a previous medical history significant for hypertension and hypertensive cardiovascular disease, hyperlipidemia, history of cerebrovascular accident in the past, paroxysmal atrial fibrillation currently on chronic anticoagulation, history of aortic valve disease status post aortic valve replacement, has been under the care of cardiology at [facility] and regular basis, history of chronic vertigo, 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, patient was last hospitalized at [facility] because of her rectal bleeding at that time she was taken off her Xarelto and she was seen in consultation by gastroenterology and she underwent EGD and colonoscopy that showed peptic ulcer disease without active bleeding and diverticulosis with internal hemorrhoids, patient was discharged home and has been doing okay, patient tried to get up to walk on her way to reach her walker she ended up getting dizzy and she went down landed on the floor ended up with severe pain in the right groin area, patient was transported to [facility] for evaluation underwent x-rays of the pelvis area as well as a computed tomography scan that showed right pubic rami fractures she was admitted under orthopedic surgery and we were asked to see the patient for medical management, she had a Gonzales catheter placement, she was seen in consultation by physical therapy she was started on pain management as well, most likely she will require subacute rehabitation. 07/03: Patient is laying down in bed she continues to be in moderate amount of pain in the right groin area, she continues to require 2 people assist non- weight bearing in the right lower leg 70, she can his Gonzales catheter in place, she is eating a bit better today, her daughter was at the bedside, she is concerned about taking her home, she will likely require subacute rehabilitation, social media marketing analyst will give her the options available, patient seems to be tolerating her treatment very well. 07/04: Patient is complaining of pain in the right hip area but also to the right foot and ankle. Areas are tender to touch. Patient seems to be very sensitive. No edema, ecchymosis. X-rays ordered and revealed no acute fracture or dislocation. Incentive spirometry to be added. Patient is complaining of nausea after eating and has not eaten any breakfast with decreased appetite. Zofran will be ordered. For pain control Hudson added. Patient had 2 bowel movements yesterday. Discussed discharge planning with the patient's daughter at the bedside. Documentation in the chart from social work is stating patient is planned for discharge to [facility]. Family would like patient to go to [facility] in [place] where a family member works. Patient has been afebrile, heart rate 95, blood pressure 115/56, pulse ox 90% to 94% on 2 L nasal cannula. Repeat blood work reveals WBC 14.1, hemoglobin 10.3, platelet count 196. Chemistry panel reveals sodium 132, potassium 3.7, chloride 94, CO2 32, BUN 21 creatinine 0.75. Blood sugar 113. Total bilirubin 1.8. Liver function tests are normal. Patient is clear from medicine for discharge to rehab. Medication reconciliation has been completed. Review of systems: Constitutional: No fever, no chills, no night sweats. No weight change. No weakness, fatigue or lethargy. No daytime sleepiness. EENT: No headache. No blurred vision or double vision, no loss of vision. No loss of Hearing, no ringing in the ears, no dizziness. No nasal drainage or congestion. No epistaxis. No sore throat. Lungs: No shortness of breath, cough, no sputum production. Reports wheezing. Cardiovascular: Reported chest pain, no lower extremity edema. Reported palpitations. No paroxysmal nocturnal dyspnea. No orthopnea. No lightheadedness or dizziness. No syncopal episodes. Abdominal: No abdominal pain. No nausea, vomiting. No diarrhea. No constipation. No bloody or tarry stools.. No loss of appetite. Genitourinary: No dysuria, increased frequency, urgency. No urinary retention. Musculoskeletal: No myalgias. Positive for muscle weakness, positive for gait dysfunction, positive for frequent falls. No back pain. No neck pain. Right foot pain. Integumentary: No wounds, no lesions. No rash or pruritus. No unusual bruising. No change in hair or nails. Neurologic: No aphasia. No facial droop. No change in mentation. No head injury. No headache. No paralysis. No paresthesia. Positive for moderate to severe dementia Psychiatric: Patient Is depression, anxiety, no suicidal ideation per Endocrine: No abnormal blood sugars. No weight change. No excessive sweating or thirst. No cold intolerance. Physical examination: Gen: This is a 79-year-old female. Patient is resting in bed and appe ars to be comfortable with minimal right groin pain. Patient's daughter at bedside HEENT: Head is atraumatic, normocephalic. Pupils equal, round. Sclerae is anicteric. , conjunctivae were pale, mucous membranes and mouth are somewhat dry. NECK: Supple. No JVD. No lymphadenopathy. No thyromegaly. LUNGS: Clear to auscultation. No wheezes or rhonchi. No intercostal retractions. no chest wall tenderness, HEART: First heart sound is depressed, second heart sound is normal, there is a 2/6 systolic ejection murmur at the left sternal border. ABDOMEN: Soft. non-tender, nondistended, positive bowel sounds, no hepatomegaly. EXTREMITIES: No pedal edema. No calf tenderness. Dorsalis pedis +2 bi laterally. Tenderness to the dorsal surface right foot and ankle. NEUROLOGICAL: Patient is awake, alert and oriented x3. Cranial nerves 2 through 12 are grossly intact, muscle power 4 out of 5 in upper extremities 3 out of 5 in the right lower extremity 4 out of 5 in the left lower extremity Babinski's were flexor bilaterally. Assessment and plan: 1. status post a fall with right pubic rami fractures. Continue current pain management, continue with incentive spirometer to reduce the incidence of atelectasis and hospital-acquired pneumonia, physical therapy evaluation, social media marketing analyst consultation, for subacute rehabitation, Hudson added for pain control. Zofran added for nausea. 2. History of peptic ulcer disease with chronic blood loss anemia. Hemoglobin is stable at this time. 3. History of aortic valve disease status post aortic valve replacement and mitral valve repair. Continue patient on metoprolol 25 mg orally twice every day. 4. Hypertension and hypertensive cardiovascular disease. Continue patient on metoprolol 25 mg orally twice every day. 5. Hyperlipidemia. Continue Lipitor 40 mg orally once every day. 6. History of moderate/severe vascular dementia. Continue Namenda 10 mg orally twice every day. 7. Recurrent depression. Continue Cymbalta 20 mg orally once every day. 8. Paroxysmal atrial fibrillation currently in sinus rhythm. Continue Xarelto at 20 mg orally once every day. 9. Iron deficiency anemia. Continue patient on iron 325 mg orally once every day. 10. Chronic vertigo. Continue meclizine 12.5 mg orally twice every day. 11. Osteoporosis. Currently on calcium and prolia. 12. DVT prophylaxis . Continue patient on Xarelto 20 mg once every day. 13. GI prophylaxis. Continue patient on Protonix 40 mg orally once every day. DISCHARGE PLAN Subacute rehab Impression and plan of care have been directed as dictated by the signing physician. Renetta Reeves nurse practitioner acting as scribe for signing physician. Objective - Vital Signs Vital signs: Vital Signs Temp 96.7 F L 07/04/20 01:49 Pulse 95 07/04/20 01:49 Resp 18 07/04/20 01:49 BP 115/56 07/04/20 01:49 Pulse Ox 90 L 07/04/20 01:49 Intake & Output 07/03/20 07/04/20 07/04/20 18:59 06:59 18:59 Intake Total 90 270 Output Total 1100 Balance -1010 270 Weight 46.266 kg Intake: IV 120 0.9 NS 120 Oral 90 150 Output: Urine 1100 Other: Voiding Method Indwelling Catheter - Labs CBC & Chem 7: 07/04/20 08:24 07/04/20 08:24
[2020-07-04 09:00] LABS: Albumin 2.8 g/dL (3.5-5.0); Calcium 8.2 mg/dL (8.4-10.2); Potassium 3.7 mmol/L (3.5-5.1); Total Bilirubin 1.8 mg/dL (0.2-1.3); Total Protein 5.3 g/dL (6.3-8.2)
--- NOTE | 2020-07-04 10:04 | P.PN ---
Subjective Progress Note Date: 07/04/20 Principal diagnosis: Right-sided superior and inferior pubic rami fracture, right ischium fracture Patient evaluated at bedside, daughter is present. Patient did work with physic al therapy yesterday. Patient did require assistance ambulating and getting out of bed. Her pain is controlled with current medication. She is having difficulty raising the leg. She denies any acute chest pain or shortness of breath Objective - Vital Signs Vital signs: Vital Signs Temp 98.1 F 07/04/20 08:00 Pulse 97 07/04/20 08:00 Resp 18 07/04/20 08:00 BP 110/57 07/04/20 08:00 Pulse Ox 95 07/04/20 08:00 Intake & Output 07/03/20 07/04/20 07/04/20 18:59 06:59 18:59 Intake Total 90 270 Output Total 1100 725 Balance -1010 270 -725 Weight 46.266 kg Intake: IV 120 0.9 NS 120 Oral 90 150 Output: Urine 1100 725 Other: Voiding Method Indwelling Catheter Indwelling Catheter - Exam Right lower extremity: No obvious open lesions or sores are present about the extremity, there is no significant areas of erythema or soft tissue swelling Patient is tender with palpation of the right proximal femur, she notes most of the pain deep in the groin with range of motion of the lower extremity mainly with internal and external rotation with flexion She is nontender with palpation involving the distal right femur, knee, lower leg, foot or ankle She is able to straight leg raise, this does reproduce discomfort. Plantar flexion, dorsiflexion, EHL, FHL are intact. No cervical strength deficits are appreciated with this. Her sensory exam to light touch throughout the extremity is intact, her calf is soft, no tenderness with palpation. Dorsalis pedis pulses 2+ General orthopedic exam: She is nontender with palpation of the midline and paraspinal regions of the cervical, thoracic or lumbar region Range of motion of the bilateral upper extremities is intact in all major muscle groups, there is no obvious point tenderness throughout the bilateral upper extremities No obvious skin changes noted throughout the left lower extremity, she can straight leg raise, there is no pain with logroll maneuver. Hip flexion, knee extension, knee flexion, plantar flexion, dorsiflexion, EHL, FHL are intact. Sensory exam to light touch throughout the left lower extremity is intact, dorsalis pedis pulses 2+. - Labs CBC & Chem 7: 07/04/20 08:24 07/04/20 08:24 Labs: Abnormal Lab Results - Last 24 Hours (Table) 07/04/20 07/04/20 Range/Units 08:24 08:24 WBC 14.1 H (3.8-10.6) k/uL Hgb 10.3 L (11.4-16.0) gm/dL Hct 32.2 L (34.0-46.0) % RDW 20.4 H (11.5-15.5) % Neutrophils # 11.7 H (1.3-7.7) k/uL Lymphocytes # 0.9 L (1.0-4.8) k/uL Monocytes # 1.2 H (0-1.0) k/uL Sodium 132 L (137-145) mmol/L Chloride 94 L (98-107) mmol/L Carbon Dioxide 32 H (22-30) mmol/L BUN 21 H (7-17) mg/dL Glucose 113 H (74-99) mg/dL Calcium 8.2 L (8.4-10.2) mg/dL Total Bilirubin 1.8 H (0.2-1.3) mg/dL Total Protein 5.3 L (6.3-8.2) g/dL Albumin 2.8 L (3.5-5.0) g/dL Assessment and Plan Assessment: Superior and inferior right-sided pubic rami fracture, minimally displaced Status post fall from standing Dementia Plan: Social work and case management are working on discharged for subacute rehab. Recommend weight-bear as tolerated with a walker at all times, PT/OT evaluation Internal medicine recommendations GI and DVT prophylaxis per internal medicine Stable for discharge to rehab Time with Patient: Less than 30
--- NOTE | 2020-07-04 11:23 | CDI ---
Documentation Clarification Form Date: 07/04/2020 10:27:09 AM From: Kathie Vazquez RN CCDS Admit Date: 07/01/2020 09:04:00 PM Patient Name: Cynthia Pickett Visit Number: [id number] Discharge Date: ATTENTION: The Clinical Documentation Specialists (CDI) and [facility] Coding Staff appreciate your assistance in clarifying documentation. Please respond to the clarification below the line at the bottom and electronically sign. The CDI & [facility] Coding staff will review the response and follow-up if needed. Please note: Queries are made part of the Legal Health Record. If you have any questions, please contact the author of this message via ITS. Dr. Deirdre Henderson, The Registered Dietitian assessment on 07/03 indicates this patient has a BMI of 17 kg/m2 and a nutrition diagnosis of Underweight. Based on this information and the findings below, is there an additional diagnosis that is clinically appropriate for this patient? History/Risk Factors: 79-year-old female presents to the ED by ambulance for hip pain, diagnosed with Superior and inferior right sided pubic rami fracture, minimally displaced. Right patient fracture, minimally displaced. Medical Hx: Atrial fib; Bariatric surgery. Documented H&P 07/02. Clinical Indicators: RD Consult Assessment: Current BMI: 17 Insufficient energy intake: Poor, 25-50% consumed, appetite fair for approximately six months. Physical Findings: Appearance Underweight. Nutrition Diagnosis Inadequate oral intake; Related to likely due to pain associated with recent injury. As evidenced by 25-50% meal intake; Outcome status Initiated. Goals: Weight gain. Increased knowledge related to diet and disease state Meeting 75% of estimated nutritional needs. Treatment: Monitor oral supplement intake. Monitor PO intake. RD Consult: See above Supplements: 07/03 [address] Consult Glucerna BID. Lab monitoring: Chemistry panel 07/02 & 07/04 Is there an additional diagnosis that is clinically appropriate for this patient? [ ] Moderate Protein-Calorie Malnutrition [ ] Severe Protein-Calorie Malnutrition [ ] Other condition, please specify [ ] Unable to Determine (Template Last Revised: May 2020) MTDD
--- NOTE | 2020-07-04 13:00 | CDI ---
Documentation Clarification Form Date: 07/04/2020 12:10:22 PM From: Kathie Vazquez RN CCDS Admit Date: 07/01/2020 09:04:00 PM Patient Name: Cynthia Pickett Visit Number: [id number] Discharge Date: ATTENTION: The Clinical Documentation Specialists (CDI) and [facility] Coding Staff appreciate your assistance in clarifying documentation. Please respond to the clarification below the line at the bottom and electronically sign. The CDI & [facility] Coding staff will review the response and follow-up if needed. Please note: Queries are made part of the Legal Health Record. If you have any questions, please contact the author of this message via ITS. Dr. Bryan Ponce, Right-sided superior and inferior pubic rami fracture, right ischium fracture is documented in the H&P 07/02. Additional clarification regarding the etiology of the fracture is requested. Patient history/risk factors: 79-year-old female presents to the ED by EMS after a fall from getting up from kitchen chair and having significant pain to right hip. ED note 07/01. Medical History: Osteoporosis, Osteoarthritis, uses a walker and Moderate to severe vascular dementia. Documented in Internal Medical Consult 07/02. Clinical Indicators: 07/01 CT of the pelvis without contrast: Acute nondisplaced right pubic rami fractures. Acute nondisplaced right ischium fracture. 07/02 HP: Patient was apparently getting up out of her chair when she lost her balance and fell directly on her right side. Treatment: 07/02 Vitamin D3, Tums. The patient takes Calcium and prolia at home. 07/02 in orders Physical therapy,07/03 Ortho Progress note recommend weight bear as tolerated with a walker at all times. 07/04 Armstrong 5/325 1 Tab PO Q6HR PRN Pain. Please clarify the etiology of the fracture, if known: [ ] Pathological ( specify cause): [ ] Osteoporosis (specify type if known): [ ] Other (please specify): [ ] Unable to determine (Template Last Revised: May 2020) Osteoporosis MTDD
[2020-07-04] MEDS: HYDROcodone/APAP 5-325MG 1 EACH TAB PO PRN ×2 (13:16→20:48)
--- NOTE | 2020-07-04 15:24 | P.DS ---
Providers Date of admission: 07/01/20 21:04 Expected date of discharge: 07/04/20 Attending physician: Bryan Ponce DO Consults: 07/01/20 21:03 Consult Physician Routine Consulting Provider: Deirdre Henderson Consult Reason/Comments: medical management of trauma patient Do you want consulting provider notified?: Yes Primary care physician: Deirdre Henderson Hospital Course: Date of admission: 07/01/2020 Date of discharge: 07/04/2020 Admission diagnosis: Right sided superior and inferior pubic rami fracture, right ischium fracture Discharge diagnosis: Same Attending physician: Dr. Ponce Surgical procedures: None Brief history: Patient is a 79-year-old female who presented to [facility] on 07/01/2020 for evaluation of a right leg injury after a fall. Patient was apparently in her kitchen, she got up from her chair and fell directly onto the right side. She was brought to [facility] for further evaluation. It was determined she had fractures involving the superior and inferior pubic rami on the right side along with a right-sided issue him fracture. She was admitted under orthopedic care, internal medicine was consult for medical management. Hospital course: Patient was noted to have a relatively uneventful postoperative course. Patient showed satisfactory progress with physical therapy but it was determined she would unable to return home with home care. The decision was made for the patient to be discharged to rehab. Discharge condition/disposition: Patient will be discharged to rehab in stable condition. Discharge medications: Instructions are given on resumption of patient's normal daily medications per primary care recommendation, in addition patient will be prescribed metoprolol 25 mg. Discharge instructions: 1. Recommend weight-bear as tolerated 2. Recommend use of a walker at all times with ambulation 3. Daily physical therapy at rehab 4. X-ray prescription was provided in the chart for x-rays to be done of the AP pelvis and right sided hip prior to her follow-up visit with Dr. Ponce. If the office visit is done. Patella visit, x-rays will need to be delivered to our office, [facility]. 5. Please contact our office with any questions, Procedures: None Patient Condition at Discharge: Stable Plan - Discharge Summary Discharge Rx Participant: No New Discharge Prescriptions: New Metoprolol Tartrate [Lopressor] 25 mg PO BID tab Continue Rivaroxaban [Xarelto] 20 mg PO DAILY Memantine [Namenda] 10 mg PO BID Ferrous Sulfate [Iron] 325 mg PO DAILY Multivitamins, Thera [Multivitamin (formulary)] 1 tab PO DAILY Docusate [Colace] 200 mg PO DAILY Nitroglycerin Sl Tabs [Nitrostat] 0.4 mg SUBLINGUAL Q5M PRN PRN Reason: Chest Pain Meclizine [Antivert] 12.5 mg PO BID Cyanocobalamin (Vitamin B-12) [Vitamin B-12] 1,000 mcg PO DAILY Calcium Carbonate [Calcium] 1,200 mg PO DAILY DULoxetine HCL [Cymbalta] 20 mg PO DAILY Cholecalciferol [Vitamin D3 (25 Mcg = 1000 Iu)] 50 mcg PO DAILY Atorvastatin [Lipitor] 40 mg PO HS Acetaminophen [Tylenol] 500 mg PO BID PRN PRN Reason: Pain Potassium Chloride ER [K-Dur 20] 20 meq PO DAILY Bumetanide [BUMEX] 2 mg PO DAILY tab Pantoprazole [Protonix] 40 mg PO AC-BID #60 tablet.dr Discharge Medication List Ferrous Sulfate [Iron] 325 mg PO DAILY 05/05/17 [History] Memantine [Namenda] 10 mg PO BID 05/05/17 [History] Multivitamins, Thera [Multivitamin (formulary)] 1 tab PO DAILY 05/05/17 [History] Rivaroxaban [Xarelto] 20 mg PO DAILY 05/05/17 [History] Acetaminophen [Tylenol] 500 mg PO BID PRN 04/25/20 [History] Atorvastatin [Lipitor] 40 mg PO HS 04/25/20 [History] Calcium Carbonate [Calcium] 1,200 mg PO DAILY 04/25/20 [History] Cholecalciferol [Vitamin D3 (25 Mcg = 1000 Iu)] 50 mcg PO DAILY 04/25/20 [History] Cyanocobalamin (Vitamin B-12) [Vitamin B-12] 1,000 mcg PO DAILY 04/25/20 [History] DULoxetine HCL [Cymbalta] 20 mg PO DAILY 04/25/20 [History] Docusate [Colace] 200 mg PO DAILY 04/25/20 [History] Meclizine [Antivert] 12.5 mg PO BID 04/25/20 [History] Nitroglycerin Sl Tabs [Nitrostat] 0.4 mg SUBLINGUAL Q5M PRN 04/25/20 [History] Potassium Chloride ER [K-Dur 20] 20 meq PO DAILY 04/25/20 [History] Bumetanide [BUMEX] 2 mg PO DAILY tab 05/02/20 [Rx] Pantoprazole [Protonix] 40 mg PO AC-BID #60 tablet. 05/02/20 [Rx] Metoprolol Tartrate [Lopressor] 25 mg PO BID tab 07/04/20 [Rx] Follow up Appointment(s)/Referral(s): Deirdre Henderson MD [Primary Care Provider] - 1 Week (after discharge from [facility]) Mykel Paz, [NON-STAFF] - As Needed Bryan Ponce DO [Doctor of Osteopathic Medicine] - 2 Weeks Activity/Diet/Wound Care/Special Instructions: Orthopedic discharge instructions 1. Weight-bear as tolerated 2. Utilize walker at all times 3. X-ray prescription was placed in patient's chart to have x-rays done prior to her office visit 4. Plan for follow-up at [facility] in [address] Ponce, please contact us with any questions [phone] Discharge Disposition: HOME WITH HOSPICE
[2020-07-04] MEDS: ATORVASTATIN 40 MG TAB PO SCH (20:48)
[2020-07-05 08:24] VITALS: BP 112/53; PULSE 84; TEMP 96.2
[2020-07-05] MEDS: PANTOPRAZOLE 40 MG TABLET PO SCH (08:29)
[2020-07-05] MEDS: BUMETANIDE 1 MG TAB PO SCH (08:30)
[2020-07-05] MEDS: DOCUSATE 100 MG CAP PO SCH (08:30)
[2020-07-05] MEDS: CHOLECALCIFEROL 25 MCG (1000 IU) TABLET PO SCH (08:30)
[2020-07-05] MEDS: FERROUS SULFATE 325 MG TAB PO SCH (08:30)
[2020-07-05] MEDS: ASPIRIN 81 MG PO SCH (08:30)
[2020-07-05] MEDS: METOPROLOL TARTRATE 25 MG TAB PO SCH (08:30)
[2020-07-05] MEDS: MEMANTINE 10 MG TAB PO SCH (08:30)
[2020-07-05] MEDS: POTASSIUM CHLORIDE ER 20 MEQ TAB.ER PO SCH (08:30)
[2020-07-05] MEDS: CALCIUM CARBONATE 500 MG CHEWABLE PO SCH (08:30)
[2020-07-05] MEDS: CYANOCOBALAMIN 500 MCG TAB PO SCH (08:30)
[2020-07-05] MEDS: MECLIZINE 12.5 MG TAB PO SCH (08:31)
[2020-07-05] MEDS: DULoxetine HCL 20 MG CAPSULE.DR PO SCH (08:31)
[2020-07-05] MEDS: MULTIVITAMINS, THERA 1 EACH TAB PO SCH (08:31)
--- NOTE | 2020-07-05 08:40 | P.PN ---
Subjective Progress Note Date: 07/05/20 HISTORY OF PRESENT ILLNESS: This is an 79-year-old female in a patient with a previous medical history significant for hypertension and hypertensive cardiovascular disease, hyperlipidemia, history of cerebrovascular accident in the past, paroxysmal atrial fibrillation currently on chronic anticoagulation, history of aortic valve disease status post aortic valve replacement, has been under the care of cardiology at [facility] and regular basis, history of chronic vertigo, 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, patient was last hospitalized at [facility] because of her rectal bleeding at that time she was taken off her Xarelto and she was seen in consultation by gastroenterology and she underwent EGD and colonoscopy that showed peptic ulcer disease without active bleeding and diverticulosis with internal hemorrhoids, patient was discharged home and has been doing okay, patient tried to get up to walk on her way to reach her walker she ended up getting dizzy and she went down landed on the floor ended up with severe pain in the right groin area, patient was transported to [facility] for evaluation underwent x-rays of the pelvis area as well as a computed tomography scan that showed right pubic rami fractures she was admitted under orthopedic surgery and we were asked to see the patient for medical management, she had a Gonzales catheter placement, she was seen in consultation by physical therapy she was started on pain management as well, most likely she will require subacute rehabitation. 07/03: Patient is laying down in bed she continues to be in moderate amount of pain in the right groin area, she continues to require 2 people assist non- weight bearing in the right lower leg 70, she can his Gonzales catheter in place, she is eating a bit better today, her daughter was at the bedside, she is concerned about taking her home, she will likely require subacute rehabilitation, secondary social studies teacher will give her the options available, patient seems to be tolerating her treatment very well. 07/04: Patient is complaining of pain in the right hip area but also to the right foot and ankle. Areas are tender to touch. Patient seems to be very sensitive. No edema, ecchymosis. X-rays ordered and revealed no acute fracture or dislocation. Incentive spirometry to be added. Patient is complaining of nausea after eating and has not eaten any breakfast with decreased appetite. Zofran will be ordered. For pain control Poyntelle added. Patient had 2 bowel movements yesterday. Discussed discharge planning with the patient's daughter at the bedside. Documentation in the chart from social work is stating patient is planned for discharge to [facility]. Family would like patient to go to [facility] in [place] where a family member works. Patient has been afebrile, heart rate 95, blood pressure 115/56, pulse ox 90% to 94% on 2 L nasal cannula. Repeat blood work reveals WBC 14.1, hemoglobin 10.3, platelet count 196. Chemistry panel reveals sodium 132, potassium 3.7, chloride 94, CO2 32, BUN 21 creatinine 0.75. Blood sugar 113. Total bilirubin 1.8. Liver function tests are normal. Patient is clear from medicine for discharge to rehab. Medication reconciliation has been completed. 07/05: Patient was prepared for discharge and plan today is to [facility]. Patient's daughter is at bedside with multiple concerns. Patient apparently has been on Xarelto for the past 3 months although this was on her home meds last. Daughter is also upset that a prescription for Poyntelle was not provided for the patient for the detention which we haven't taken care of. Xarelto has been removed from her medication list. Patient did not receive Xarelto while in the hospital. Apparently patient's coremaker helper Dr. Murrieta had taken her off Xarelto 3 weeks ago due to GI bleed. Patient will be on baby aspirin only for now. Patient was complaining of difficulty breathing this morning but pulse ox is 94% on 2 L nasal cannula. No respiratory distress is noted. Patient continues to have tenderness to the right foot and ankle. Unable to obtain palpable pulse. Pulse was obtained by Doppler and also left dorsalis pedis was not obtained by Doppler. Consult was added for vascular surgery. Patient's daughter requested Dr. Murrieta be contacted which will be done. Patient continues to have no swelling, no erythema to the foot and ankle area. Patient is very tender to touch on all parts of her body. This apparently is not new for the patient according to the daughter. Patient also had an episode last evening where she was sweating. She has been afebrile, heart rate 84, blood pressure 112/53, pulse ox 95% on 2 L nasal cannula. Repeat blood work will be ordered for this morning. Review of systems: Constitutional: No fever, no chills, no night sweats. No weight change. No weakness, fatigue or lethargy. No daytime sleepiness. EENT: No headache. No blurred vision or double vision, no loss of vision. No loss of Hearing, no ringing in the ears, no dizziness. No nasal drainage or congestion. No epistaxis. No sore throat. Lungs: No shortness of breath, cough, no sputum production. Reports wheezing. Cardiovascular: Denies chest pain, no lower extremity edema. Denies palpitations. No paroxysmal nocturnal dyspnea. No orthopnea. No ligh theadedness or dizziness. No syncopal episodes. Abdominal: No abdominal pain. No nausea, vomiting. No diarrhea. No constipation. No bloody or tarry stools.. No loss of appetite. Genitourinary: No dysuria, increased frequency, urgency. No urinary retention. Musculoskeletal: No myalgias. Positive for muscle weakness, positive for gait dysfunction, positive for frequent falls. No back pain. No neck pain. Right foot pain. Integumentary: No wounds, no lesions. No rash or pruritus. No unusual bruising. No change in hair or nails. Neurologic: No aphasia. No facial droop. No change in mentation. No head injury. No headache. No paralysis. No paresthesia. Positive for moderate to severe dementia Psychiatric: Patient Is depression, anxiety, no suicidal ideation per Endocrine: No abnormal blood sugars. No weight change. No excessive sweating or thirst. No cold intolerance. Physical examination: Gen: This is a 79-year-old female. Patient is resting in bed and appears to be comfortable with minimal right groin pain. Patient's daughter at bedside HEENT: Head is atraumatic, normocephalic. Pupils equal, round. Sclerae is anicteric, conjunctivae pale, mucous membranes and mouth are somewhat dry. NECK: Supple. No JVD. No lymphadenopathy. No thyromegaly. LUNGS: Clear to auscultation. No wheezes or rhonchi. No intercostal retractions. no chest wall tenderness, HEART: First heart sound is depressed, second heart sound is normal, there is a 2/6 systolic ejection murmur at the left sternal border. ABDOMEN: Soft. non-tender, nondistended, positive bowel sounds, no hepatomegaly. EXTREMITIES: No pedal edema. No calf tenderness. Dorsalis pedis on the right is faint by Doppler, left is not obtained by Doppler. Tenderness to the dorsal surface right foot and ankle. NEUROLOGICAL: Patient is awake, alert and oriented to person and place. Cranial nerves 2 through 12 are grossly intact. Assessment and plan: 1. status post a fall with right pubic rami fractures. Continue current pain management, continue with incentive spirometer to reduce the incidence of atelectasis and hospital-acquired pneumonia, physical therapy evaluation, secondary social studies teacher consultation, for subacute rehabitation, Poyntelle added for pain control. Zofran added for nausea. 2. History of peptic ulcer disease with chronic blood loss anemia. Hemoglobin is stable at this time. 3. History of aortic valve disease status post aortic valve replacement and mitral valve repair. Continue patient on metoprolol 25 mg orally twice every day. 4. Hypertension and hypertensive cardiovascular disease. Continue patient on metoprolol 25 mg orally twice every day. 5. Hyperlipidemia. Continue Lipitor 40 mg orally once every day. 6. History of moderate/severe vascular dementia. Continue Namenda 10 mg orally twice every day. 7. Recurrent depression. Continue Cymbalta 20 mg orally once every day. 8. Paroxysmal atrial fibrillation currently in sinus rhythm. Continue Lopressor 25 mg twice daily. Patient is off Xarelto due to GI bleed. 9. Iron deficiency anemia. Continue patient on iron 325 mg orally once every day. 10. Chronic vertigo. Continue meclizine 12.5 mg orally twice every day. 11. Osteoporosis. Currently on calcium and prolia. 12. Pain right ankle and foot. X-rays negative for fracture or dislocation. 13. Arterial insufficiency lower extremities. Consult with vascular surgery. 14. DVT prophylaxis. Heparin 5000 units subcu every 12 hours. 13. GI prophylaxis. Continue patient on Protonix 40 mg orally twice day. DISCHARGE PLAN [facility] Impression and plan of care have been directed as dictated by the signing physician. Renetta Reeves nurse practitioner acting as scribe for signing physician. Objective - Vital Signs Vital signs: Vital Signs Temp 98.2 F 07/05/20 02:00 Pulse 80 07/05/20 02:00 Resp 18 07/05/20 02:00 BP 101/61 07/05/20 02:00 Pulse Ox 99 07/05/20 02:00 Intake & Output 07/04/20 07/05/20 07/05/20 18:59 06:59 18:59 Intake Total 480 Output Total 1074 211 Balance -595 -475 Intake: Oral 480 Output: Urine 1074 475 Other: Voiding Method Indwelling Catheter Indwelling Catheter - Labs CBC & Chem 7: 07/04/20 08:24 07/04/20 08:24 Labs: Abnormal Lab Results - Last 24 Hours (Table) 07/04/20 07/04/20 Range/Units 08:24 08:24 WBC 14.1 H (3.8-10.6) k/uL Hgb 10.3 L (11.4-16.0) gm/dL Hct 32.2 L (34.0-46.0) % RDW 20.4 H (11.5-15.5) % Neutrophils # 11.7 H (1.3-7.7) k/uL Lymphocytes # 0.9 L (1.0-4.8) k/uL Monocytes # 1.2 H (0-1.0) k/uL Sodium 132 L (137-145) mmol/L Chloride 94 L (98-107) mmol/L Carbon Dioxide 32 H (22-30) mmol/L BUN 21 H (7-17) mg/dL Glucose 113 H (74-99) mg/dL Calcium 8.2 L (8.4-10.2) mg/dL Total Bilirubin 1.8 H (0.2-1.3) mg/dL Total Protein 5.3 L (6.3-8.2) g/dL Albumin 2.8 L (3.5-5.0) g/dL
[2020-07-05 08:59] LABS: Anisocytosis Moderate; Basophils % (A) 0 %; Eosinophils % (A) 0 %; HCT 34.5 % (34.0-46.0); HGB 10.5 gm/dL (11.4-16.0); Hypochromasia Moderate; Lymphocytes # (A) 1.1 k/uL (1.0-4.8); Lymphocytes % (A) 9 %; MCH 25.5 pg (25.0-35.0); MCHC 30.3 g/dL (31.0-37.0); MCV 84.1 fL (80.0-100.0); Microcytosis Slight; Monocytes # (A) 0.7 k/uL (0-1.0); Monocytes % (A) 6 %; Neutrophils # (A) 10.1 k/uL (1.3-7.7); Neutrophils % (A) 83 %; Platelet Count 220 k/uL (150-450); Poikilocytosis Slight; RBC 4.11 m/uL (3.80-5.40); RDW 20.7 % (11.5-15.5); WBC 12.2 k/uL (3.8-10.6)
[2020-07-05] MEDS ORDERED: HEPARIN SODIUM,PORCINE/PF 5,000 UNIT/0.5 ML SYRINGE SQ SCH (09:00)
[2020-07-05 09:09] LABS: Calcium 8.5 mg/dL (8.4-10.2); Potassium 4.9 mmol/L (3.5-5.1)
--- NOTE | 2020-07-05 10:05 | US ---
EXAMINATION TYPE: US venous doppler duplex LE DATE OF EXAM: 07/05/2020 9:22 AM COMPARISON: NONE CLINICAL HISTORY: pain, decreased pulse. Leg pain SIDE PERFORMED: Bilateral TECHNIQUE: The lower extremity deep venous system is examined utilizing real time linear array sonog karan with graded compression, doppler sonography and color-flow sonography. VESSELS IMAGED: Common Femoral Vein Deep Femoral Vein Greater Saphenous Vein * Femoral Vein Popliteal Vein Small Saphenous Vein * Proximal Calf Veins (* superficial vessels) Right Leg: Non-occluding filling defect distal femoral vein area of valve, popliteal veins not image d, pt unable to move right leg and pt in too much pain Left Leg: Non-occluding filling defect distal femoral vein area of valve IMPRESSION: 1. Nonoccluding DVT bilaterally.
--- NOTE | 2020-07-05 10:38 | P.PN ---
Progress Note - Text Progress Note Date: 07/05/20 Patient was not discharged to rehab yesterday. The discharge order has been removed at this time. There was concern over a few different home medications that were not reordered along with difficulty obtaining pulses in the lower legs. A consult was placed for vascular surgery, labs were also reordered. An orthopedic standpoint, the patient remains stable with regards to the fractures involving the right pelvis at this time. Lower extremities remain warm to touch, her motion is limited due to discomfort in the right lower extremity. Primary admission which has returned medicine, we will remain on consult and we'll be available for any further questions.
[2020-07-05] MEDS ORDERED: HEPARIN SODIUM 1,000 UN/ML (10ML VL) IV PRN (11:37)
[2020-07-05] MEDS ORDERED: HEPARIN SOD,PORK IN 0.45% NACL 25,000 UNIT in 0.45% NACL 1 250ML.BAG IV SCH (11:45)
[2020-07-05 12:21] LABS: Anisocytosis Moderate; Basophils # (A) 0.1 k/uL (0-0.2); Basophils % (A) 0 %; Eosinophils % (A) 0 %; HCT 33.5 % (34.0-46.0); HGB 10.4 gm/dL (11.4-16.0); Hypochromasia Marked; Lymphocytes # (A) 1.5 k/uL (1.0-4.8); Lymphocytes % (A) 12 %; MCH 26.6 pg (25.0-35.0); Mean Platelet Volume 8.8; Monocytes % (A) 7 %; Neutrophils # (A) 10.4 k/uL (1.3-7.7); Neutrophils % (A) 79 %; Platelet Count 233 k/uL (150-450); RDW 20.4 % (11.5-15.5); WBC 13.2 k/uL (3.8-10.6)
[2020-07-05 12:30] LABS: INR 2.1 (<1.2); Partial Thromboplastin Time 27.6 sec (22.0-30.0); Prothrombin Time 20.6 sec (9.0-12.0)
[2020-07-05 13:15] LABS: Glucose,Whole Blood 124 mg/dL (75-99)
--- NOTE | 2020-07-05 13:46 | P.EN ---
I responded to a CODE BLUE called my nursing staff after patient was found unresponsive in the room for unknown period of time. The time of my arrival, high-quality chest compression was already started. Patient received 1 dose of IV epinephrine. We continued efforts of resuscitation for approximately 35 minutes. Patient was intubated and bagged throughout the code. Patient rece ived multiple doses of IV epinephrine throughout the code as well as bicarb. at some point we had a pulse and rhythm on the monitor showed sinus bradycardia with a heart rate in the 30s and 40s. Patient received a dose of atropine and heart rate improved to the 50s. Soon after patient went into pulseless electrical activity and high-quality chest compression resumed. Patient's son and daughter went outside of the room and I was updating them on a regular basis throughout the code. We discussed the diminished chances of meaningful recovery after a prolonged code. After 35 minutes, her son and daughter were agreeable to stop resuscitation effort.
--- NOTE | 2020-07-05 14:25 | P.GSCN ---
History of Present Illness Consult date: 07/05/20 Reason for Consult: Pain in right leg, nonpalpable dorsalis pedis pulses Requesting physician: Deirdre Henderson History of present illness: This is a pleasant 79-year-old female with a past medical history significant for atrial fibrillation not currently on anticoagulation, hypertension, cardiovascular disease, hyperlipidemia, history of CVA, aortic valve disease status post aortic valve replacement, chronic vertigo, history of vascular dementia who was brought to the emergency department on Thursday after sustaining a fall. During her evaluation, she underwent x-rays of the pelvis and computed tomography scan which showed right pubic Rami fractures. She has been seen by orthopedic services, no surgical intervention was completed. They were treating medically, with PT and OT. The patient was having complaints of bilateral lower extremity pain, right greater than left. States it has gotten worse over the last 3 days and pain is traveled down to her right foot. She was found to have nonpalpable dorsalis pedis pulses, therefore vascular surgery was consulted. As part of her workup a venous Doppler ultrasound was completed, nonoccluding filling defect distal femoral vein area of bowel, popliteal veins not imaged. Left leg nonoccluding filling defect distal femoral vein area of bowel. The impression of nonoccluding DVT bilaterally. She has no previous history of peripheral arterial disease, states that she's been walking at home with a walker, does not complain of any rest pain or pain with ambulation prior to her fall. The patient is having significant pain in the right lower extremity, unable to bend her knee, has tenderness to palpation along the calf and dorsal aspect of her right foot. Able to move the left lower extremity is slightly more than the right. She denies any chest pain, she has some mild shortness of breath. Denies any abdominal pain or fever. Review of Systems 13 point review of systems was completed and all pertinent positives and negatives as stated in the HPI. 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 (hx blood clot behind rt eye from TIA), anemia, urinary leakage, gets dizzy when standing up History of Any Multi-Drug Resistant Organisms: None Reported Past Surgical History: Bariatric Surgery, Cardiac Valve Replacement, Cholecystectomy, Heart Catheterization, Hysterectomy, Orthopedic Surgery Additional Past Surgical History / Comment(s): 2 heart valve replaced, torn retina left eye, left knee surgery Past Anesthesia/Blood Transfusion Reactions: No Reported Reaction Past Psychological History: No Psychological Hx Reported Smoking Status: Never smoker Past Alcohol Use History: Occasional Past Drug Use History: None Reported - Past Family History Mother Family Medical History: Cancer Additional Family Medical History / Comment(s): Mother had female and colon cancer. Father Family Medical History: Diabetes Mellitus, Hyperlipidemia, Hypertension Medications and Allergies Home Medications Medication Instructions Recorded Confirmed Type Ferrous Sulfate [Iron] 325 mg PO DAILY 05/05/17 07/01/20 History Memantine [Namenda] 10 mg PO BID 05/05/17 07/01/20 History Acetaminophen [Tylenol] 500 mg PO BID PRN 04/25/20 07/01/20 History Atorvastatin [Lipitor] 40 mg PO HS 04/25/20 07/01/20 History Calcium Carbonate [Calcium] 1,200 mg PO DAILY 04/25/20 07/01/20 History Cholecalciferol [Vitamin D3 (25 50 mcg PO DAILY 04/25/20 07/01/20 History Mcg = 1000 Iu)] Cyanocobalamin (Vitamin B-12) 1,000 mcg PO DAILY 04/25/20 07/01/20 History [Vitamin B-12] DULoxetine HCL [Cymbalta] 20 mg PO DAILY 04/25/20 07/01/20 History Docusate [Colace] 200 mg PO DAILY 04/25/20 07/01/20 History Meclizine [Antivert] 12.5 mg PO BID 04/25/20 07/01/20 History Nitroglycerin Sl Tabs [Nitrostat] 0.4 mg SUBLINGUAL Q5M PRN 04/25/20 07/01/20 History Potassium Chloride ER [K-Dur 20] 20 meq PO DAILY 04/25/20 07/01/20 History Bumetanide [BUMEX] 2 mg PO DAILY tab 05/02/20 07/01/20 Rx Pantoprazole [Protonix] 40 mg PO AC-BID #60 tablet. 05/02/20 07/01/20 Rx Metoprolol Tartrate [Lopressor] 25 mg PO BID tab 07/04/20 Rx Aspirin EC [Ecotrin Low Dose] 81 mg PO DAILY #30 tablet. 07/05/20 Rx HYDROcodone/APAP 5-325MG [[place] 1 each PO Q6HR PRN #12 tab 07/05/20 Rx 5-325] Allergies Allergy/AdvReac Type Severity Reaction Status Date / Time No Known Allergies Allergy Verified 07/01/20 21:08 Surgical - Exam Vital Signs Temp Resp BP Pulse Ox 97 F L 18 122/49 96 07/01/20 19:32 07/01/20 19:32 07/01/20 19:32 07/01/20 19:32 General appearance: The patient is alert, oriented, in no acute distress. HET: Head is normocephalic and atraumatic. Neck: Supple without lymphadenopathy. Trachea midline. Heart: S1 S2. Regular rate and rhythm. Lungs: Clear to auscultation. Abdomen: Soft, nontender, nondistended. Extremities: Normal skin color and turgor. No cyanosis, rash, ulceration, clubbing, or edema. Bilateral lower extremities cold to touch, capillary refill 3-5 seconds. Palpable bilateral femoral pulses. Unable to palpate or Doppler popliteal pulses due to patient's inability to move or raise her leg due to pain. Bilateral steered tibialis Doppler signal obtained, no dorsalis pedis Doppler signal obtained bilaterally. Neurological: Awaker, alert, pleasant and answers questions appropriately. Results Venous Doppler US: Nonoccluding DVT bilaterally Arterial US: Unable to determine TBI due to patient's pain and inability to move her legs. Overall waveforms not showing siginificant arterial occlusive disease. - Labs 07/05/20 12:01 07/05/20 08:34 Abnormal Lab Results - Last 24 Hours (Table) 07/05/20 Range/Units 08:34 WBC 12.2 H (3.8-10.6) k/uL Hgb 10.5 L (11.4-16.0) gm/dL MCHC 30.3 L (31.0-37.0) g/dL RDW 20.7 H (11.5-15.5) % Neutrophils # 10.1 H (1.3-7.7) k/uL Assessment and Plan Assessment: 1. Right lower extremity pain 2. Bilateral nonoccluding deep vein thrombosis 3. Status post fall with right pubic fracture 4. History of atrial fibrillation, not on anticoagulation 5. History of peptic ulcer disease 6. History of aortic valve disease status post aortic valve replacement 7. Coronary artery disease 8. Hyperlipidemia and hypertension 9. Dementia Plan: 1. Continue symptomatic and supportive care 2. Venous Doppler study reviewed 3. Arterial Doppler study ordered and reviewed 4. Discussion between Dr. Mcdaniels, the patient, the patient's daughter was had at the bedside regarding recommendation of starting anticoagulation versus IVC filter placement. Discussed further with primary medicine team further recommendations on starting anticoagulation versus IVC filter placement due to patient's previous GI bleed. 5. Primary medicine team ordered IV heparin drip 6. Discussed with patient and patient's daughter that with any further signs of GI bleed after starting anticoagulation, can follow-up with vascular surgery to discuss IVC filter placement at that time. Thank you for this consultation, we will continue to follow The impression and plan of care has been dictated as directed. Dr. Mcdaniels I performed a history and examination of this patient, discussed the same with the dictator. I agree with the dictator's note ,documented as a scribe. Any additional findings or plans will be noted.
--- NOTE | 2020-07-10 13:33 | P.DS ---
Providers Date of admission: 07/01/20 21:04 Expected date of discharge: 07/05/20 Attending physician: Deirdre Henderson Consults: 07/01/20 21:03 Consult Physician Routine Consulting Provider: Deirdre Henderson Consult Reason/Comments: medical management of trauma patient Do you want consulting provider notified?: Yes 07/05/20 08:10 Consult Physician Routine Consulting Provider: Jelani Kaur Consult Reason/Comments: pain right leg, faint pulse by doppler Do you want consulting provider notified?: Yes 07/05/20 09:21 Consult Physician Routine Consulting Provider: Bryan Ponce Consult Reason/Comments: pubic bone fx Do you want consulting provider notified?: Already Contacted Primary care physician: Deirdre Henderson [facility] Course: HISTORY OF PRESENT ILLNESS: This is an 79-year-old female in a patient with a previous medical history significant for hypertension and hypertensive cardiovascular disease, hyperlipidemia, history of cerebrovascular accident in the past, paroxysmal atrial fibrillation currently on chronic anticoagulation, history of aortic valve disease status post aortic valve replacement, has been under the care of cardiology at [facility] and regular basis, history of chronic vertigo, 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, patient was last hospitalized at [facility] because of her rectal bleeding at that time she was taken off her Xarelto and she was seen in consultation by gastroenterology and she underwent EGD and colonoscopy that showed peptic ulcer disease without active bleeding and diverticulosis with internal hemorrhoids, patient was discharged home and has been doing okay, patient tried to get up to walk on her way to reach her walker she ended up getting dizzy and she went down landed on the floor ended up with severe pain in the right groin area, patient was transported to [facility] for evaluation underwent x-rays of the pelvis area as well as a computed tomography scan that showed right pubic rami fractures she was admitted under orthopedic surgery and we were asked to see the patient for medical management, she had a Gonzales catheter placement, she was seen in consultation by physical therapy she was started on pain management as well, most likely she will require subacute rehabitation. 07/03: Patient is laying down in bed she continues to be in moderate amount of pain in the right groin area, she continues to require 2 people assist non- weight bearing in the right lower leg 70, she can his Gonzales catheter in place, she is eating a bit better today, her daughter was at the bedside, she is concerned about taking her home, she will likely require subacute rehabilitation, social worker health services will give her the options available, patient seems to be tolerating her treatment very well. 07/04: Patient is complaining of pain in the right hip area but also to the right foot and ankle. Areas are tender to touch. Patient seems to be very sensitive. No edema, ecchymosis. X-rays ordered and revealed no acute fracture or dislocation. Incentive spirometry to be added. Patient is complaining of nausea after eating and has not eaten any breakfast with decreased appetite. Zofran will be ordered. For pain control [place] added. Patient had 2 bowel movements yesterday. Discussed discharge planning with the patient's daughter at the bedside. Documentation in the chart from social work is stating patient is planned for discharge to [facility]. Family would like patient to go to subacute rehab in [place] where a family member works. Patient has been afebrile, heart rate 95, blood pressure 115/56, pulse ox 90% to 94% on 2 L nasal cannula. Repeat blood work reveals WBC 14.1, hemoglobin 10.3, platelet count 196. Chem istry panel reveals sodium 132, potassium 3.7, chloride 94, CO2 32, BUN 21 creatinine 0.75. Blood sugar 113. Total bilirubin 1.8. Liver function tests are normal. Patient is clear from medicine for discharge to rehab. Medication reconciliation has been completed. 07/05: Patient was prepared for discharge and plan today is to [facility]. Patient's daughter is at bedside with multiple concerns. Patient apparently has been on Xarelto for the past 3 months although this was on her home meds last. Daughter is also upset that a prescription for [place] was not provided for the patient for the assisted which we have taken care of. Xarelto has been removed from her medication list as well. Patient did not receive Xarelto while in the hospital. Apparently patient's fondant puff maker Dr. Murrieta had taken her off Xarelto 3 that he is due to GI bleed. Patient will be on baby aspirin only for now. Patient was complaining of difficulty breathi ng this morning but pulse ox is 94% on 2 L nasal cannula. No respiratory distress is noted. Patient continues to have tenderness to the right foot and ankle. Unable to obtain palpable pulse. Pulse was obtained by Doppler and also left dorsalis pedis was not obtained by Doppler. Consult was added for vascular surgery. Patient's daughter requested Dr. Murrieta be contacted which will be done. Patient continues to have no swelling, no erythema to the foot and ankle area. Patient is very tender to touch on all parts of her body. This apparently is not new for the patient according to the daughter. Patient also had an episode last evening where she was sweating. She has been afebrile, heart rate 84, blood pressure 112/53, pulse ox 95% on 2 L nasal cannula. Repeat blood work will be ordered for this morning. Ultrasound of the bilateral lower extremities detected and nonoccluding DVT bilaterally. Patient was also seen by vascular surgery with recommendations for anticoagulation or IVC filter placement. Patient was found unresponsive in her room in the afternoon. CODE BLUE was called and ACLS was provided. Patient was not resuscitated. Please see nursing documentation for details. Assessment and plan: 1. Status post a fall with right pubic rami fractures secondary to osteoporosis. 2. Bilateral lower extremity DVT, probable pulmonary embolism, POA. 3. History of peptic ulcer disease with chronic blood loss anemia. 4. History of aortic valve disease status post aortic valve replacement and mitral valve repair. 5. Hypertension and hypertensive cardiovascular disease. 6. Hyperlipidemia. 7. History of moderate to severe vascular dementia. 8. Recurrent depression. 9. Paroxysmal atrial fibrillation currently in sinus rhythm. 10. Iron deficiency anemia. 11. Chronic vertigo. 12. Osteoporosis. 13. Pain right ankle and foot. 14. Arterial insufficiency lower extremities ruled out by vascular surgery. 15. Moderate protein calorie malnutrition with BMI of 17. 16. No Heart failure history. Impression and plan of care have been directed as dictated by the signing physician. Renetta Reeves nurse practitioner acting as scribe for signing physician. Patient Condition at Discharge: Undetermined Plan - Discharge Summary Discharge Rx Participant: No New Discharge Prescriptions: New Metoprolol Tartrate [Lopressor] 25 mg PO BID tab Aspirin EC [Ecotrin Low Dose] 81 mg PO DAILY #30 tablet. HYDROcodone/APAP 5-325MG [[place] 5-325] 1 each PO Q6HR PRN #12 tab PRN Reason: Pain Continue Memantine [Namenda] 10 mg PO BID Ferrous Sulfate [Iron] 325 mg PO DAILY Docusate [Colace] 200 mg PO DAILY Nitroglycerin Sl Tabs [Nitrostat] 0.4 mg SUBLINGUAL Q5M PRN PRN Reason: Chest Pain Meclizine [Antivert] 12.5 mg PO BID Cyanocobalamin (Vitamin B-12) [Vitamin B-12] 1,000 mcg PO DAILY Calcium Carbonate [Calcium] 1,200 mg PO DAILY DULoxetine HCL [Cymbalta] 20 mg PO DAILY Cholecalciferol [Vitamin D3 (25 Mcg = 1000 Iu)] 50 mcg PO DAILY Atorvastatin [Lipitor] 40 mg PO HS Acetaminophen [Tylenol] 500 mg PO BID PRN PRN Reason: Pain Potassium Chloride ER [K-Dur 20] 20 meq PO DAILY Bumetanide [BUMEX] 2 mg PO DAILY tab Pantoprazole [Protonix] 40 mg PO AC-BID #60 tablet.dr Discontinued Rivaroxaban [Xarelto] 20 mg PO DAILY Multivitamins, Thera [Multivitamin (formulary)] 1 tab PO DAILY Discharge Medication List Ferrous Sulfate [Iron] 325 mg PO DAILY 05/05/17 [History] Memantine [Namenda] 10 mg PO BID 05/05/17 [History] Acetaminophen [Tylenol] 500 mg PO BID PRN 04/25/20 [History] Atorvastatin [Lipitor] 40 mg PO HS 04/25/20 [History] Calcium Carbonate [Calcium] 1,200 mg PO DAILY 04/25/20 [History] Cholecalciferol [Vitamin D3 (25 Mcg = 1000 Iu)] 50 mcg PO DAILY 04/25/20 [History] Cyanocobalamin (Vitamin B-12) [Vitamin B-12] 1,000 mcg PO DAILY 04/25/20 [History] DULoxetine HCL [Cymbalta] 20 mg PO DAILY 04/25/20 [History] Docusate [Colace] 200 mg PO DAILY 04/25/20 [History] Meclizine [Antivert] 12.5 mg PO BID 04/25/20 [History] Nitroglycerin Sl Tabs [Nitrostat] 0.4 mg SUBLINGUAL Q5M PRN 04/25/20 [History] Potassium Chloride ER [K-Dur 20] 20 meq PO DAILY 04/25/20 [History] Bumetanide [BUMEX] 2 mg PO DAILY tab 05/02/20 [Rx] Pantoprazole [Protonix] 40 mg PO AC-BID #60 tablet. 05/02/20 [Rx] Metoprolol Tartrate [Lopressor] 25 mg PO BID tab 07/04/20 [Rx] Aspirin EC [Ecotrin Low Dose] 81 mg PO DAILY #30 tablet. 07/05/20 [Rx] HYDROcodone/APAP 5-325MG [[place] 5-325] 1 each PO Q6HR PRN #12 tab 07/05/20 [Rx] Follow up Appointment(s)/Referral(s): Deirdre Henderson MD [Primary Care Provider] - 1 Week (after discharge from [facility]) Mykel Paz, [NON-STAFF] - As Needed Bryan Ponce DO [Doctor of Osteopathic Medicine] - 2 Weeks Activity/Diet/Wound Care/Special Instructions: Orthopedic discharge instructions 1. Weight-bear as tolerated 2. Utilize walker at all times 3. X-ray prescription was placed in patient's chart to have x-rays done prior to her office visit 4. Plan [facility] [address] Ponce, please contact us with any questions [phone] Discharge Disposition: - Preliminary Cause of Preliminary Cause of : probable pulmonary embolism, POA.
--- NOTE | 2020-07-11 10:54 | P.ARTDOP ---
Arterial Doppler LOWER EXTREMITY ARTERIAL DOPPLER: DATE OF SERVICE: 07/05/2020 Reason for study: Post trauma. Doppler waveforms: Multiphasic bilaterally throughout. Pulse volume recording: []. Pressure gradients: Not measured. Ankle-brachial indices: Cannot occlude on either side. Toe brachial indices: [] on the right, [] on the left Impression: Suspect calcific wall disease. Doppler waveforms suggest adequate circulatory status for healing..
== END 2020-07-05 17:50 | disposition expired | DRG 542 ==
LOC: EC 19:30 → 5NMEDONC 21:04 → 1SOBS 07-02 07:46
PROVIDERS: ADMIT Internal Medicine; ATTEND Internal Medicine
DX: M80.0AXA Age-related osteoporosis with current pathological fracture, other site, initial encounter for fracture (principal); I26.99 Other pulmonary embolism without acute cor pulmonale; F33.9 Major depressive disorder, recurrent, unspecified; M80.051A Age-related osteoporosis with current pathological fracture, right femur, initial encounter for fracture; I82.413 Acute embolism and thrombosis of femoral vein, bilateral; E44.0 Moderate protein-calorie malnutrition; I48.0 Paroxysmal atrial fibrillation; Z20.822 Contact with and (suspected) exposure to COVID-19; I08.0 Rheumatic disorders of both mitral and aortic valves; D50.9 Iron deficiency anemia, unspecified; R42 Dizziness and giddiness; I11.0 Hypertensive heart disease with heart failure; E78.5 Hyperlipidemia, unspecified; Z87.11 Personal history of peptic ulcer disease; W01.0XXA Fall on same level from slipping, tripping and stumbling without subsequent striking against object, initial encounter; F01.50 Vascular dementia, unspecified severity, without behavioral disturbance, psychotic disturbance, mood disturbance, and anxiety; R55 Syncope and collapse; Z83.3 Family history of diabetes mellitus; Z82.49 Family history of ischemic heart disease and other diseases of the circulatory system; Z80.0 Family history of malignant neoplasm of digestive organs; Z86.73 Personal history of transient ischemic attack (TIA), and cerebral infarction without residual deficits; K57.90 Diverticulosis of intestine, part unspecified, without perforation or abscess without bleeding; Z95.2 Presence of prosthetic heart valve; K21.9 Gastro-esophageal reflux disease without esophagitis; H54.61 Unqualified visual loss, right eye, normal vision left eye; H91.90 Unspecified hearing loss, unspecified ear; M79.7 Fibromyalgia; Z90.710 Acquired absence of both cervix and uterus; Z79.01 Long term (current) use of anticoagulants; M25.571 Pain in right ankle and joints of right foot; I77.1 Stricture of artery; R00.1 Bradycardia, unspecified; I25.10 Atherosclerotic heart disease of native coronary artery without angina pectoris; M19.041 Primary osteoarthritis, right hand; M19.042 Primary osteoarthritis, left hand; Z79.82 Long term (current) use of aspirin; Z82.3 Family history of stroke; Z79.899 Other long term (current) drug therapy
CPT/HCPCS: 72192; 73502; 80048; 80053; 85025; 85610; 85730; 87635; 92950; 93922; 93970; 99285